=== PATIENT | female | born 1945 | race Caucasian/White ===

== ENCOUNTER 2016-07-19 11:13 | Emergency (ER) | payer OTHER, MEDICARE ==
[~2016-07-19] VITALS: Ht 154.9 cm; Wt 71.2 kg
[~2016-07-19 11:13] MED LIST: ALBUTEROL0.09 MG/A1 INH; ALPRAZOLAM0.25 MG PO; ANTIVERT 25 MG25 M1 PO; ATIVAN0.5 MG PO; BUFFERIN LOW DO81 MG PO; COREG 12.5MG12.5 MG PO; FUROSEMIDE20 M1 PO; HEPARIN 2525000 UNI1 IV; IMBRUVICA140 MG PO; K-TAB ER20 MEQ PO; LIPITOR80 MG PO; LISINOPRIL20 MG PO; LYRICA50 MG PO; METFORMIN1000 MG PO; MORPHINE10 MG/ML IV; Nitro-Bid TOP; OMEPRAZOLE40 M1 PO; OXYCODONE5 MG PO; OXYCONTIN20 MG PO; ROCEPHIN1000 MG IV; TIGAN100 MG/ML IM; ZITHROMAX IV
--- NOTE | 2016-07-19 11:31 | ED GENERAL ADULT ---
History of Present Illness General Chief Complaint: General Adult Stated Complaint: BIBA BODY ACHES, FEVER,NAUSEA Source: patient, family, old records Exam Limitations: no limitations Vital Signs & Intake/Output Vital Signs & Intake/Output Vital Signs Date Time Temp Pulse Resp B/P Pulse O2 O2 Flow FiO2 Ox Delivery Rate 07/19 1633 99.1 78 22 174/85 95 Room Air Room Air 07/19 1420 98.0 85 20 168/88 96 Room Air Room Air 07/19 1300 98.8 07/19 1253 98.6 68 18 148/77 100 Room Air 07/19 1129 93 Room Air Room Air 07/19 1115 98.2 70 18 171/79 95 Room Air Allergies Coded Allergies: methotrexate (PT CAN'T REMEMBER REACTION 07/19/16) erythromycin base (PT STATES SHE GETS SHAKY 07/19/16) Reconcile Medications Alprazolam (Xanax) 0.25 MG TABLET 1 TAB PO BIDP PRN ANXIETY (Reported) Amlodipine Besylate (Norvasc) 5 MG TABLET 1 TAB PO DAILY HEART (Reported) Aspirin (Aspirin*) 81 MG TAB.CHEW 1 TAB PO DAILY HEART (Reported) Atorvastatin Calcium 80 MG TABLET 1 TAB PO DAILY CHOLESTEROL (Reported) Carvedilol (Coreg) 6.25 MG TABLET 1 TAB PO BID HEART (Reported) Celecoxib (Celebrex) 200 MG CAPSULE 1 CAP PO DAILY PAIN (Reported) Dexlansoprazole (Dexilant) 60 MG CAP.DR.BP 1 CAP PO DAILY GI (Reported) Duloxetine HCl (Cymbalta) 60 MG CAPSULE.DR 1 CAP PO DAILY UNKNOWN (Reported) Furosemide 20 MG TABLET 1 TAB PO DAILY EDEMA (Reported) Lisinopril 40 MG TABLET 1 TAB PO DAILY HEART (Reported) Omeprazole 40 MG CAPSULE.DR 1 CAP PO DAILY ACID REFLUX (Reported) Ondansetron HCl (Zofran) 4 MG TABLET 1 TAB PO Q6-8P PRN NAUSEA/VOMITING ( Reported) Oxycodone HCl 5 MG TABLET 1 TAB PO Q8 PAIN (Reported) Oxycodone HCl (Oxycontin) 20 MG TAB.ER.12H 1 TAB PO BID PAIN (Reported) Potassium Chloride (K-Tab ER) 20 MEQ TABLET.ER 1 TAB PO DAILY SUPPLEMENT ( Reported) Pregabalin (Lyrica) 50 MG CAPSULE 1 CAP PO DAILY PAIN (Reported) Spironolactone (Aldactone) 50 MG TABLET 1 TAB PO DAILY UNKNOWN (Reported) Valsartan (Diovan) 160 MG TABLET 1 TAB PO DAILY HEART (Reported) Triage Note: PT BIBA FROM HOME FOR DIARRHEA, NAUSEA WITH VOMITING, BODY ACHES AND FEVER/CHILLS. SYMPTOMS STARTED LAST NIGHT AND CONTINUED INTO THIS MORNING. VISITING NURSE MEDICATED PT WITH [facility]AN CALL PERSON. PT HAS HISTORY OF CLL. NO RECENT SICK CONTACTS, HOWEVER PT'S JUST DC'D FROM HOSPITAL. PT A/O X 4. DENIES CHEST PAIN, COUGH, DIFF BREATHING. Triage Nurses Notes Reviewed? yes HPI: Patient presents with nausea and dry heaving fevers and chills since yesterday. Patient has a history of CLL but is no longer requiring treatment for it. The fevers have been subjective. She states that yesterday she had 4-5 episodes of diarrhea but none today. Patient states she occasionally gets a crampy abdominal pain periumbilically. Crampy abdominal pain lasts a few minutes and then goes away. There are no aggravating or mitigating factors what she has numb. Patient states that when she has the cramps rates them has a 4 out of 10. Currently the pain is 0 out of 10. The visiting nurse came to evaluate her today and sent her in for evaluation. Past History Travel History Traveled to [place] past 21 day No Medical History Any Pertinent Medical History? 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 No Review of Systems Review of Systems Constitutional: Reports: see HPI, chills, fever. EENTM: Reports: no symptoms. Respiratory: Reports: no symptoms. Cardiovascular: Reports: no symptoms. GI: Reports: see HPI, abdominal pain, diarrhea, nausea, vomiting. Genitourinary: Reports: no symptoms. Musculoskeletal: Reports: no symptoms. Skin: Reports: no symptoms. Neurological/Psychological: Reports: no symptoms. Hematologic/Endocrine: Reports: no symptoms. Immunologic/Allergic: Reports: no symptoms. All Other Systems: Reviewed and Negative Physical Exam Physical Exam General Appearance: well developed/nourished, alert, awake, mild distress Head: atraumatic, normal appearance Eyes: Bilateral: PERRL, EOMI. Ears, Nose, Throat: normal pharynx, normal ENT inspection, dry mucus membranes Neck: normal inspection, supple, full range of motion Respiratory: normal breath sounds, chest non-tender, no respiratory distress, lungs clear Cardiovascular: regular rate/rhythm, normal peripheral pulses Gastrointestinal: normal bowel sounds, soft, non-tender, no organomegaly Back: normal inspection Extremities: normal inspection, normal capillary refill, normal range of motion, no edema Neurologic/Psych: no motor/sensory deficits, awake, alert, oriented x 3, normal mood/affect Skin: intact, normal color, warm/dry Lymphatic: no anterior cervical nova Core Measures ACS in differential dx? No CVA/TIA Diagnosis: No Severe Sepsis Present: No Septic Shock Present: No Progress Differential Diagnoses I considered the following diagnoses in my evaluation of the patient: [ Dehydration, electrolyte abnormality, UTI, pneumonia, sepsis, bacteremia] Plan of Care: Orders Procedure Date/time Status Regular Diet 07/20 B Active Add-on Test (ER Only) 07/19 1146 Active LACTIC ACID 07/19 1143 Complete BLOOD CULTURE 07/19 1137 Active Telemetry/Cold Rolling Coordinator 07/19 1136 Active EKG 07/19 1136 Active RAPID VIRAL INFLUENZA A 07/19 1130 Complete URINALYSIS 07/19 1130 Complete COMPREHENSIVE METABOLIC PANEL 07/19 1130 Complete CBC WITHOUT DIFFERENTIAL 07/19 1130 Complete Laboratory Tests 07/19/16 1437: Lactic Acid Cancelled 07/19/16 1330: Urine Color STRAW, Urine Clarity HAZY H, Urine pH 6.5, Ur Specific Garner 1.010, Urine Protein NEG, Urine Ketones NEG, Urine Nitrite NEG, Urine Bilirubin NEG, Urine Urobilinogen 0.2, Ur Leukocyte Esterase SMALL H, Ur Microscopic SEDIMENT EXAMINED, Urine RBC 1-3, Urine WBC 3-5 H, Ur Epithelial Cells MOD H, Urine Bacteria MOD H, Urine Hemoglobin SMALL H, Urine Glucose NEG 04/06/17 1143: Anion Gap 10, Estimated GFR 49 L, BUN/Creatinine Ratio 13.6, Glucose 151 H, Lactic Acid 1.5, Calcium 9.9, Total Bilirubin 1.0, AST 17, ALT 26, Alkaline Phosphatase 47, Total Protein 6.7, Albumin 4.2, Globulin 2.5, Albumin/Globulin Ratio 1.7, CBC w Diff MAN DIFF ORDERED, RBC 5.06, MCV 83.9, MCH 28.9, RDW 15.7 H, MPV 7.8, Gran % 72.0, Lymphocytes % 22.0, Monocytes % 4.7, Eosinophils % 0.9, Basophils % 0.4, Absolute Granulocytes 12.3 H, Absolute Lymphocytes 3.8 H, Absolute Monocytes 0.8 H, Absolute Eosinophils 0.1, Absolute Basophils 0.1, Platelet Estimate VERIFIED BY SMEAR, Poikilocytosis 1+, Anisocytosis 1+, PUBS MCHC 34.4 07/19/16 1137: Lactic Acid Cancelled Microbiology 07/19 1410 NASOPHARYN: Influenza Virus A & B Rapid Smear - COMP 07/19 1145 BLOOD: Blood Culture - RECD 07/19 1143 BLOOD: Blood Culture - RECD Diagnostic Imaging: Viewed by Me: Radiology Read. Discussed w/RAD: Radiology Read. Radiology Impression: PATIENT: CHELITA ANDERSON PRESENT AGE: 71 PATIENT ACCOUNT NO: [id number] : 46 LOCATION: [facility] ORDERING PHYSICIAN: IZZY BURRELL MD SERVICE DATE: 07/19/168241 EXAM TYPE: RAD - XRY-PORTABLE CHEST XRAY EXAMINATION: XR PORTABLE CHEST CLINICAL INFORMATION: Cough, fever COMPARISON: 07/06/2015 TECHNIQUE: Portable AP view of the chest was obtained. FINDINGS: No convincing evidence for an acute process in this portable study. Low lung volumes. No evidence for an acute infiltrate. No effusion. IMPRESSION: Low lung volumes. No convincing evidence for an acute process. Recommend PA and lateral films when the patient is able DICTATED BY: STEPHANIE FARIAS MD DATE/TIME DICTATED:07/19/161417 [employer] SALES REPRESENTATIVE:KYLE DATE/TIME TRANSCRIBED:07/19/161417 CONFIDENTIAL, DO NOT COPY WITHOUT APPROPRIATE AUTHORIZATION. <Electronically signed in Other Vendor System> SIGNED BY: STEPHANIE FARIAS MD 07/19/16 1423, PATIENT: CHELITA ANDERSON PRESENT AGE: 71 PATIENT ACCOUNT NO: [id number] : 46 LOCATION: [facility] ORDERING PHYSICIAN: IZZY BURRELL MD SERVICE DATE: -7115 EXAM TYPE: CAT - CT ABD & PELVIS W/O IV CONTRAS EXAMINATION: CT ABDOMEN AND PELVIS WITHOUT CONTRAST CLINICAL INFORMATION: Fever, CLL, vomiting COMPARISON: CT abdomen and pelvis dated 07/05/2015 TECHNIQUE: Multidetector volumetric imaging was performed from the superior aspect of the liver through the pubic symphysis. Sagittal and coronal reformatted images were obtained on the technologist's workstation. DLP: 530.22 mGy-cm FINDINGS: LUNG BASES: Previously seen mosaic attenuation bilateral lung bases demonstrate slight interval improvement. Interval improvement in previously seen trace pleural effusions. LIVER, GALLBLADDER, AND BILIARY TREE: The liver is normal in size, shape, and attenuation. No focal hepatic lesion or biliary ductal dilatation is present. Status post cholecystectomy. No gross biliary ductal dilatation. PANCREAS: Evaluation is limited on the noncontrast images no gross abnormality. SPLEEN: Unremarkable. ADRENAL GLANDS: Prominence of bilateral adrenal glands noted again. It is more focal prominence of the medial limb left adrenal gland measuring approximately 2.6 x 2 cm (series 2 image 27 and coronal image 45/85). Hounsfield units are higher than seen with lipid rich adenoma. Although enlarged adrenal gland was seen on the prior examination, there is slightly lower attenuation on the prior study. KIDNEYS AND URETERS: No evidence of renal stones or obstructive uropathy. No gross cortical abnormality BLADDER: Unremarkable. GASTROINTESTINAL TRACT: No acute bowel pathology. No evidence of obstruction. There is incomplete distention versus wall thickness of the proximal stomach. Mild colonic diverticulosis. No definite evidence of acute diverticulitis. Evaluation of the bowel and rectal wall is limited due to incomplete distention. ABDOMINAL WALL: Surgical clips noted at the level of the umbilicus. There is diffuse edema-like change noted throughout the subcutaneous tissues suspicious for mild anasarca. LYMPH NODES: Borderline enlarged retroperitoneal lymph nodes noted again. Larger aortocaval node measures approximately 1 cm in short axis. Similar appearance seen on the previous examination. VASCULAR: Atherosclerotic disease of the aorta and aortic branches. PELVIC VISCERA: Intrauterine device in place. Retroflexed uterus. Calcified fibroids suspected. No gross ovarian or adnexal abnormality appreciated. OSSEOUS STRUCTURES: Moderate to severe degenerative changes noted in the lumbar spine similar to the previous examination. No acute osseous abnormality. Degenerative changes bilateral hips, right greater than left. IMPRESSION: 1. Adrenal enlargement, left greater than right. Hounsfield units are higher than seen with lipid rich adrenal adenoma. Although similarly enlarged adrenal glands were seen on the prior examination, there has been interval increase in the attenuation of the focal left adrenal enlargement. Although there is no evidence of acute hemorrhage, interval adrenal hemorrhage cannot be entirely excluded. Findings can be further assessed with nonemergent adrenal MRI. 2. Stable borderline enlarged retroperitoneal lymph nodes. 3. Improving aeration bilateral lung bases. 4. Incomplete distention versus wall thickness of the proximal stomach. DICTATED BY: RIOS FELICIANO MD DATE/TIME DICTATED:07/19/161605 [employer] SALES REPRESENTATIVE:KYLE DATE/TIME TRANSCRIBED:07/19/161605 CONFIDENTIAL, DO NOT COPY WITHOUT APPROPRIATE AUTHORIZATION. <Electronically signed in Other Vendor System> SIGNED BY: RIOS FELICIANO MD 07/19/16 4939 Initial ED EKG: NSR, no ST T wave changes Prior EKG: unchanged Comments: Patient tolerated fluid here in the emergency department without vomiting. Departure Departure Disposition: HOME OR SELF CARE Condition: Stable Clinical Impression Primary Impression: Hypokalemia Secondary Impressions: Leukocytosis Referrals: DALE LOJA MD Additional Instructions: Return if symptoms worsen or for any concerns. Departure Forms: Customer Survey General Discharge Information Critical Care Note Critical Care Note Critical Care Time: non-applicable
[2016-07-19 11:53] LABS: ABSOLUTE BASOPHIL COUNT 0.1 /CUMM (0.0-0.2); ABSOLUTE EOSINOPHIL COUNT 0.1 /CUMM (0.0-0.7); ABSOLUTE GRANULOCYTE CT 12.3 /CUMM (1.4-6.5); ABSOLUTE LYMPH COUNT 3.8 /CUMM (1.2-3.4); ABSOLUTE MONOCYTE COUNT 0.8 /CUMM (0.10-0.60); BASOPHIL % 0.4 % (0.0-2.0); EOSINOPHIL % 0.9 % (0-5); HEMATOCRIT 42.5 % (37-47); MEAN CORPUSCULAR HGB 28.9 PG (27.0-31.0); MEAN CORPUSCULAR HGB CONC 34.4 G/DL (33.0-37.0); MEAN CORPUSCULAR VOLUME 83.9 FL (81.0-99.0); MEAN PLATELET VOLUME 7.8 FL (7.4-10.4); PLATELET COUNT 378 /CUMM (130-400); RBC DISTRIBUTION WIDTH 15.7 % (11.5-14.5); RED BLOOD CELL CT 5.06 /CUMM (4.20-5.40); WHITE BLOOD CELL COUNT 17.1 /CUMM (4.8-10.8)
[2016-07-19] MEDS ORDERED: ZOFRAN4 M2 PO (12:48)
[2016-07-19] MEDS ORDERED: OXYCODONE HCL5 M1 PO (12:49)
[2016-07-19] MEDS ORDERED: CELEBREX200 M1 PO (12:49)
[2016-07-19] MEDS ORDERED: OXYCONTIN20 M1 PO (12:49)
[2016-07-19] MEDS ORDERED: ATORVASTATIN CA80 M1 PO (12:50)
[2016-07-19] MEDS ORDERED: COREG6.25 M1 PO (12:50)
[2016-07-19] MEDS ORDERED: ALDACTONE50 M1 PO (12:50)
[2016-07-19] MEDS ORDERED: DIOVAN160 MG PO (12:51)
[2016-07-19] MEDS ORDERED: NORVASC5 M1 PO (12:51)
[2016-07-19] MEDS ORDERED: XANAX0.25 M1 PO (12:52)
[2016-07-19] MEDS ORDERED: LISINOPRIL40 M1 PO (12:52)
[2016-07-19] MEDS ORDERED: LYRICA50 M1 PO (12:52)
[2016-07-19] MEDS ORDERED: DEXILANT60 M1 PO (12:53)
[2016-07-19] MEDS ORDERED: CYMBALTA60 M1 PO (12:53)
[2016-07-19] MEDS ORDERED: ASPIRIN81 M4 PO (12:53)
--- NOTE | 2016-07-19 14:23 | RADIOLOGY REPORT ---
EXAMINATION: XR PORTABLE CHEST CLINICAL INFORMATION: Cough, fever COMPARISON: 07/06/2015 TECHNIQUE: Portable AP view of the chest was obtained. FINDINGS: No convincing evidence for an acute process in this portable study. Low lung volumes. No evidence for an acute infiltrate. No effusion. IMPRESSION: Low lung volumes. No convincing evidence for an acute process. Recommend PA and lateral films when the patient is able
--- NOTE | 2016-07-19 16:29 | CT SCAN REPORT ---
EXAMINATION: CT ABDOMEN AND PELVIS WITHOUT CONTRAST CLINICAL INFORMATION: Fever, CLL, vomiting COMPARISON: CT abdomen and pelvis dated 07/05/2015 TECHNIQUE: Multidetector volumetric imaging was performed from the superior aspect of the liver through the pubic symphysis. Sagittal and coronal reformatted images were obtained on the technologist's workstation. DLP: 530.22 mGy-cm FINDINGS: LUNG BASES: Previously seen mosaic attenuation bilateral lung bases demonstrate slight interval improvement. Interval improvement in previously seen trace pleural effusions. LIVER, GALLBLADDER, AND BILIARY TREE: The liver is normal in size, shape, and attenuation. No focal hepatic lesion or biliary ductal dilatation is present. Status post cholecystectomy. No gross biliary ductal dilatation. PANCREAS: Evaluation is limited on the noncontrast images no gross abnormality. SPLEEN: Unremarkable. ADRENAL GLANDS: Prominence of bilateral adrenal glands noted again. It is more focal prominence of the medial limb left adrenal gland measuring approximately 2.6 x 2 cm (series 2 image 27 and coronal image 45/85). Hounsfield units are higher than seen with lipid rich adenoma. Although enlarged adrenal gland was seen on the prior examination, there is slightly lower attenuation on the prior study. KIDNEYS AND URETERS: No evidence of renal stones or obstructive uropathy. No gross cortical abnormality BLADDER: Unremarkable. GASTROINTESTINAL TRACT: No acute bowel pathology. No evidence of obstruction. There is incomplete distention versus wall thickness of the proximal stomach. Mild colonic diverticulosis. No definite evidence of acute diverticulitis. Evaluation of the bowel and rectal wall is limited due to incomplete distention. ABDOMINAL WALL: Surgical clips noted at the level of the umbilicus. There is diffuse edema-like change noted throughout the subcutaneous tissues suspicious for mild anasarca. LYMPH NODES: Borderline enlarged retroperitoneal lymph nodes noted again. Larger aortocaval node measures approximately 1 cm in short axis. Similar appearance seen on the previous examination. VASCULAR: Atherosclerotic disease of the aorta and aortic branches. PELVIC VISCERA: Intrauterine device in place. Retroflexed uterus. Calcified fibroids suspected. No gross ovarian or adnexal abnormality appreciated. OSSEOUS STRUCTURES: Moderate to severe degenerative changes noted in the lumbar spine similar to the previous examination. No acute osseous abnormality. Degenerative changes bilateral hips, right greater than left. IMPRESSION: 1. Adrenal enlargement, left greater than right. Hounsfield units are higher than seen with lipid rich adrenal adenoma. Although similarly enlarged adrenal glands were seen on the prior examination, there has been interval increase in the attenuation of the focal left adrenal enlargement. Although there is no evidence of acute hemorrhage, interval adrenal hemorrhage cannot be entirely excluded. Findings can be further assessed with nonemergent adrenal MRI. 2. Stable borderline enlarged retroperitoneal lymph nodes. 3. Improving aeration bilateral lung bases. 4. Incomplete distention versus wall thickness of the proximal stomach.
[2016-07-19 18:14] VITALS: BP 180/85
== END 2016-07-19 18:46 ==
LOC: ERH 11:13
PROVIDERS: Emergency Medicine
DX: E87.6 Hypokalemia (principal); D72.829 Elevated white blood cell count, unspecified
CPT/HCPCS: 74176; 81001; 87040; 87804; 87804-59; 93005; 93010; 96365; 96366; 96375; J2405

== ENCOUNTER 2016-08-23 14:06 | Inpatient (IN) | payer OTHER, MEDICARE ==
[~2016-08-23] VITALS: Ht 152.4 cm; Wt 70.3 kg
[~2016-08-23 14:06] MED LIST changes: +ALDACTONE50 M1 PO; +ASPIRIN81 M4 PO; +ATORVASTATIN CA80 M1 PO; +CELEBREX200 M1 PO; +COREG6.25 M1 PO; +CYMBALTA60 M1 PO; +DEXILANT60 M1 PO; +DIOVAN160 MG PO; +LISINOPRIL40 M1 PO; +LYRICA50 M1 PO; +NORVASC5 M1 PO; +OXYCODONE HCL5 M1 PO; +OXYCONTIN20 M1 PO; +XANAX0.25 M1 PO; +ZOFRAN4 M2 PO
--- NOTE | 2016-08-23 14:12 | NUR ---
[place] FROM HOME, VISITING NURSE NOTED PT TO HAVE ALTERED MENTAL STATUS. UPON ARRIVAL PT ALERT AND ORIENTED X3. PREHOSPITAL IV PLACED AND BS 128. PT SKIN COLOR APPEARS NORMAL. NO COMPLAINTS.
--- NOTE | 2016-08-23 14:26 | NUR ---
PT A+OX3. REPORTS MARIJUANA USE FOR RIGHT HIP PAIN. PLACED ON MONITOR.
--- NOTE | 2016-08-23 14:39 | ED GENERAL ADULT ---
History of Present Illness General Chief Complaint: General Adult Stated Complaint: ALTERED MENTAL STATUS Source: patient, family, old records Exam Limitations: no limitations Allergies Coded Allergies: methotrexate (PT CAN'T REMEMBER REACTION 07/19/16) erythromycin base (PT STATES SHE GETS SHAKY 07/19/16) Triage Note: BIBA FROM HOME, VISITING NURSE NOTED PT TO HAVE ALTERED MENTAL STATUS. UPON ARRIVAL PT ALERT AND ORIENTED X3. PREHOSPITAL IV PLACED AND BS 128. PT SKIN COLOR APPEARS NORMAL. NO COMPLAINTS. Triage Nurses Notes Reviewed? yes HPI: Ms Stokes is a 71-year-old female with past medical history of hypertension, hyperlipidemia, type 2 diabetes and CLL who was sent into the emergency department by ambulance after her visiting nurse visited the patient early this morning noted her to be mentally altered. Patient reports that she has not had any changes to mentation and states that she is in her normal state of health, however feels that the last 48 hours she has felt right-sided hip pain. The pain is rated at a 7 out of 10 in severity. Patient owes this hip pain due to working aggressively with physical therapy. She denies any fever, chills, nausea, vomiting. The patient denies any changes in mentation or any vision changes. Her was at bedside. They deny any head trauma or falls. (SHIRLEY WEBSTER,[facility]) Vital Signs & Intake/Output Vital Signs & Intake/Output Vital Signs Date Time Temp Pulse Resp B/P B/P Pulse O2 O2 Flow FiO2 Mean Ox Delivery Rate 08/24 1007 Room Air Room Air 08/24 0955 58 110/62 08/24 0955 58 110/62 08/24 0835 98.2 58 18 110/62 96 08/24 0800 Nasal 2.0L Cannula 08/24 0104 68 116/72 08/24 0059 99.0 68 20 116/72 95 Nasal Cannula 08/23 2328 98.5 66 18 114/56 95 Nasal 2.0L Cannula 08/23 2323 Nasal 2.0L Cannula 08/23 1955 Nasal 2.0L Cannula 08/23 1902 98.6 96 16 114/67 96 Nasal 2.0L Cannula 08/23 1541 98.5 66 18 112/62 94 Room Air 08/23 1418 95 Room Air 08/23 1417 98.3 61 20 109/60 96 Nasal 3.0L Cannula ED Intake and Output 08/24 0000 08/23 1200 Intake Total Output Total Balance Patient 70.307 kg Weight Weight Reported by Patient Measurement Method Reconcile Medications Alprazolam (Xanax) 0.25 MG TABLET 1 TAB PO BIDP PRN ANXIETY (Reported) Amlodipine Besylate (Norvasc) 5 MG TABLET 1 TAB PO DAILY HEART (Reported) Aspirin (Aspirin*) 81 MG TAB.CHEW 1 TAB PO DAILY HEART (Reported) Atorvastatin Calcium 80 MG TABLET 1 TAB PO DAILY CHOLESTEROL (Reported) Carvedilol (Coreg) 6.25 MG TABLET 1 TAB PO BID HEART (Reported) Celecoxib (Celebrex) 200 MG CAPSULE 1 CAP PO DAILY PAIN (Reported) Dexlansoprazole (Dexilant) 60 MG CAP.DR.BP 1 CAP PO DAILY GI (Reported) Duloxetine HCl (Cymbalta) 60 MG CAPSULE.DR 1 CAP PO DAILY UNKNOWN (Reported) Furosemide 20 MG TABLET 1 TAB PO DAILY EDEMA (Reported) Lisinopril 40 MG TABLET 1 TAB PO DAILY HEART (Reported) Metformin HCl 500 MG TABLET 1 TAB PO BID DIABETES (Reported) Mifepristone (Korlym) 300 MG TABLET 1 TAB PO DAILY ENDO (Reported) Omeprazole 40 MG CAPSULE.DR 1 CAP PO DAILY ACID REFLUX (Reported) Ondansetron HCl (Zofran) 4 MG TABLET 1 TAB PO Q6-8P PRN NAUSEA/VOMITING ( Reported) Oxycodone HCl 5 MG TABLET 1 TAB PO Q8 PAIN (Reported) Oxycodone HCl (Oxycontin) 20 MG TAB.ER.12H 1 TAB PO BID PAIN (Reported) Potassium Chloride (K-Tab ER) 20 MEQ TABLET.ER 1 TAB PO DAILY SUPPLEMENT ( Reported) Pregabalin (Lyrica) 50 MG CAPSULE 1 CAP PO DAILY PAIN (Reported) Spironolactone (Aldactone) 50 MG TABLET 1 TAB PO DAILY UNKNOWN (Reported) Valsartan (Diovan) 160 MG TABLET 1 TAB PO DAILY HEART (Reported) (RIC ALATORRE MD) Past History Travel History Traveled to [place] past 21 day No Medical History Neurological: STROKE EENT: NONE Cardiovascular: hypertension, hyperlipidemia, myocardial infarction, ?LV HYPERTROPHY Respiratory: NONE Gastrointestinal: NONE Hepatic: NONE Renal: NONE Musculoskeletal: osteoarthritis Psychiatric: NONE Endocrine: diabetes, THYROID NODULE Blood Disorders: NONE Cancer(s): CLL CEMENT BREAKER/Reproductive: NONE Other Medical Hx: HX OF ANEMIA, History of MRSA: No History of VRE: No History of CDIFF: No Surgical History Surgical History: non-contributory Psychosocial History Who do you live with Spouse What is your primary language Azeri Tobacco Use: Current Daily Use Daily Tobacco Use Amount/Type: => 5 Cigarettes daily ETOH Use: denies use Illicit Drug Use: marijuana (CHRIS WATSON MD) Medical History Any Pertinent Medical History? see below for history Family History Hx Contributory? No (RIC ALATORRE MD) Review of Systems Review of Systems Constitutional: Denies: chills, diaphoresis, fever, malaise, weakness. Respiratory: Denies: cough, hemoptysis, orthopnea, short of breath. Cardiovascular: Denies: chest pain, edema, orthopena, palpitations. GI: Denies: abdominal pain, bloating, constipation, diarrhea, distention, bowel incontinence, melena. Genitourinary: Denies: discharge, dysuria, frequency, hematuria, hesitation, nocturia. Musculoskeletal: Reports: joint pain. Denies: back pain, gout, joint swelling, muscle pain. Skin: Denies: cysts, change in skin color, change in hair/nails, dryness. Neurological/Psychological: Denies: anxiety, ataxia, cognitive dysfunction, confusion, depressed, dementia, emotional problems. Hematologic/Endocrine: Denies: bruising, bleeding, polyuria, polydipsia. (CHRIS WATSON MD) Review of Systems EENTM: Reports: no symptoms. Immunologic/Allergic: Reports: no symptoms. All Other Systems: Reviewed and Negative (RIC ALATORRE MD) Physical Exam Physical Exam General Appearance: well developed/nourished, no apparent distress, alert, awake Eyes: Bilateral: PERRL, EOMI. 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 Skin: intact, normal color Lymphatic: no anterior cervical nova Core Measures ACS in differential dx? Yes ASA ordered for poss ACS? No-ACS ruled out CVA/TIA Diagnosis: No Severe Sepsis Present: No Septic Shock Present: No (LANDRY WEBSTER,RIC) Progress Differential Diagnoses I considered the following diagnoses in my evaluation of the patient: Altered mentation, pneumonia, hyperkalemia, pneumonia, UTI. Initial ED EKG: normal axis, normal intervals, normal p-waves (SHIRLEY WEBSTER,[facility]) Plan of Care: Orders Procedure Date/time Status Regular Diet 08/24 B Active EKG 08/24 1100 Active THERAPIST ORDERS 08/24 1007 Complete Change service to 08/24 1006 Active RT: Evaluation 08/24 0816 Active GLYCOSYLATED HGB 08/24 0635 Active THYROID STIMULATING HORMONE 08/24 0630 Complete TROPONIN LEVEL 08/24 0630 Complete LIPID PANEL 08/24 0630 Complete FREE T4 08/24 0630 Complete EKG 08/24 0553 Active MAGNESIUM 08/24 0400 Complete CBC WITHOUT DIFFERENTIAL 08/24 0400 Complete BASIC ELECTROLYTES PLUS BUN&CR 08/24 0400 Complete Turn and Reposition 08/24 0128 Active Skin Integrity Protocol 08/24 0128 Active Therapeutic Activities 08/24 UNK Complete PT EVAL LOW COMPLEX 20 MIN 08/24 UNK Complete Gait Training 08/24 UNK Complete Lab Add-on Test 08/24 UNK Active ECHOCARDIOGRAM 08/24 UNK Active Regular Diet 08/23 D Complete EKG 08/23 2334 Active CULTURE,URINE 08/23 2329 Active CULTURE,STOOL 08/23 2329 Active LOWER RESPIRATORY CULTURE 08/23 2329 Active BLOOD CULTURE 08/23 2329 Active Vital Signs 08/23 2322 Active Teach/Educate 08/23 232 Active Pain Treatment and Response 08/23 232 Active Nutritional Intake, Monitor 08/23 232 Active Isolation 08/23 232 Active Intake & Output 08/23 2321 Active Patient Care Conference 08/23 232 Active Activity/Ambulation 08/23 232 Active FingerStick- Glucose 08/23 231 Active TROPONIN LEVEL 08/23 231 Complete TRC EVALUATION (GEN) 08/23 231 Complete PT Evaluate & Treat 08/23 2309 Active Saline Lock 08/23 2309 Active Pathway - chart 08/23 2309 Active House Staff 08/23 2309 Active Patient Data 08/23 231 Active Code Status 08/23 231 Active URINE DRUGS OF ABUSE 08/23 225 Complete Patient Data 08/23 2148 Active Add-on Test (ER Only) 08/24 2147 Active OXYGEN SETUP (GEN) 08/24 2123 Active Saline Lock 08/24 2123 Active Admit to inpatient 08/24 2123 Active Vital Signs 08/24 2123 Active Activity/Ambulation 08/24 2123 Active Code Status 08/24 2123 Complete POTASSIUM-PLASMA 08/24 1999 Complete EKG 08/23 180 Active URINALYSIS 08/23 1719 Complete TROPONIN LEVEL 08/23 1614 Complete MAGNESIUM 08/23 161 Complete FingerStick- Glucose 08/23 1540 Active COMPREHENSIVE METABOLIC PANEL 08/23 1533 Complete CBC WITHOUT DIFFERENTIAL 08/23 1533 Complete Intake & Output 08/23 1415 Active EKG 08/23 0500 Active VTE Mechanical Prophylaxis 08/23 UNK Active Vital Signs 08/23 UNK Complete MISTAKE 08/23 UNK Active Telemetry/Quality Improvement Coordinator 08/23 UNK Active Intake & Output 08/23 UNK Complete Current Medications Sig/Sugar Start time Last Medication Dose Stop Time Status Admin Atorvastatin Calcium 80 MG 1700 08/24 1700 AC (Lipitor) Magnesium Sulfate 1 GM ONCE ONE 08/24 1145 CAN (Mag Sulfate in D5) 08/24 1544 Dextrose/Water 100 ML (D5W) Aspirin 81 MG DAILY 08/24 1000 AC 08/24 (Aspirin) 0955 Lisinopril 40 MG DAILY 08/24 1000 AC 08/24 (Prinivil) 0955 Spironolactone 50 MG DAILY 08/24 1000 AC 08/24 (Aldactone) 0954 Insulin Aspart 0 TIDAC 08/24 0800 AC (NovoLOG) Oxycodone HCl 5 MG Q8P PRN 08/24 0630 AC (Roxicodone) Heparin Sodium 5,000 UNIT Q8 08/24 0600 AC 08/24 (Porcine) 0623 Ceftriaxone Sodium 1,000 MG DAILY 08/24 0300 AC 08/24 (Rocephin) 0955 Carvedilol 6.25 MG BID 08/24 0015 AC 08/24 (Coreg) 0955 Oxycodone HCl 20 MG BID 08/23 2317 AC 08/24 (OxyCONTIN) 0953 Potassium Chloride 40 MEQ Q13H 08/23 2200 AC 08/23 (KCl 40MEQ in D5W NS 08/24 2359 2320 1000ML) Dextrose/Sodium 1,000 ML Chloride (D5-Normal Saline) Potassium Chloride 20 MEQ ONCE ONE 08/23 1730 CAN 08/23 1731 Laboratory Tests 08/24/16 1100: Hemoglobin A1c Pending 08/24/16 0630: Troponin I Cancelled 08/24/16 0630: Anion Gap 7, Estimated GFR 44 L, BUN/Creatinine Ratio 12.5, Magnesium 1.7, Troponin I 0.16 *H, Triglycerides 106, Cholesterol 78, LDL Cholesterol, Calc 22 L, HDL Cholesterol 36 L, Cholesterol/HDL Ratio 2.2, TSH 2.630, Free T4 0.96, CBC w Diff NO MAN DIFF REQ, RBC 4.00 L, MCV 83.2, MCH 28.6, RDW 15.2 H, MPV 8.4, Gran % 49.6, Lymphocytes % 42.4, Monocytes % 5.8, Eosinophils % 1.7, Basophils % 0.5, Absolute Granulocytes 7.2 H, Absolute Lymphocytes 6.2 H, Absolute Monocytes 0.8 H, Absolute Eosinophils 0.2, Absolute Basophils 0.1, PUBS MCHC 34.4 08/24/16 0000: Urine Opiates Screen 1340.00, Methadone Screen 70, Barbiturate Screen < 60, Ur Phencyclidine Scrn < 6.00, Amphetamines Screen < 100, U Benzodiazepines Scrn > 800 H, Urine Cocaine Screen < 50, Urine Cannabis Screen > 80.00 H, Urine Color YEL, Urine Clarity HAZY H, Urine pH 6.0, Ur Specific [place] 1.020, Urine Protein 30 H, Urine Ketones NEG, Urine Nitrite NEG, Urine Bilirubin NEG, Urine Urobilinogen 0.2, Ur Leukocyte Esterase SMALL H, Ur Microscopic SEDIMENT EXAMINED, Urine RBC RARE, Urine WBC 5-10 H, Ur Epithelial Cells MOD H, Urine Bacteria MANY H, Urine Hemoglobin TRACE-INTACT, Urine Glucose NEG 08/23/16 2330: Troponin I 0.17 *H 08/23/166: Plasma Potassium 2.2 *L 08/23/16 1614: Anion Gap 11, Estimated GFR 40 L, BUN/Creatinine Ratio 10.0, Glucose 93, Calcium 9.3, Magnesium 1.1 L, Total Bilirubin 0.8, AST 22, ALT 35, Alkaline Phosphatase 55, Troponin I 0.11 *H, Total Protein 6.1 L, Albumin 4.0, Globulin 2.1, Albumin/Globulin Ratio 1.9, CBC w Diff MAN DIFF ORDERED, RBC 4.79, MCV 83.7 , MCH 28.0, RDW 15.4 H, MPV 7.7, Gran % 62.0, Lymphocytes % 29.1, Monocytes % 7.0, Eosinophils % 1.4, Basophils % 0.5, Absolute Granulocytes 12.6 H, Segmented Neutrophils 55, Absolute Lymphocytes 5.9 H, Lymphocytes 36, Monocytes 5, Absolute Monocytes 1.4 H, Eosinophils 3, Absolute Eosinophils 0.3, Basophils 1, Absolute Basophils 0.1, Platelet Estimate ADEQUATE, Poikilocytosis 1+, Stomatocytes RARE, [place] Cells 1+, PUBS MCHC 33.5 Microbiology 08/24 0000 URINE ROUT: Urine Culture - RECD 08/23 2328 LOWER RESP: Respiratory Culture - COLB 08/23 2328 LOWER RESP: Gram Stain - COLB 08/23 2328 STOOL: Stool Culture - COLB Differential Diagnoses I considered the following diagnoses in my evaluation of the patient: (RIC ALATORRE MD) Departure Departure Disposition: STILL A PATIENT Condition: Stable Clinical Impression Primary Impression: Altered mental status Secondary Impressions: Hypokalemia Referrals: LINDA MATTHEWS MD (PCP/Family) Departure Forms: Customer Survey General Discharge Information (SHIRLEY WEBSTER,CHRIS) Resident Co-Sign Statement Statement: ED Attending supervision documentation- [X] I saw and evaluated the patient. I have also reviewed all the pertinent lab results and diagnostic results. I agree with the findings and the plan of care as documented in the Resident's documentation. [] I have reviewed the ED Record and agree with the Resident's documentation. [] Additions or exceptions (if any) to the Resident's note and plan are summarized below: [] (GIN WEBSTER,STEPHANIE Gonzales) Admission Note Spoke With: NITIN CARDOZO MD Documentation of Exam: Documentation of any treatments & extenuating circumstances including Concerns Regarding Discharge (functional status, medication knowledge or non-compliance, living conditions, etc.) that warrant an admission rather than observation: Serial lab exam IV potassium medication adjustment ensure safety physical therapy continuing care discharge planning (RIC ALATORRE MD) Critical Care Note Critical Care Note Critical Care Time: non-applicable (RIC ALATORRE MD)
--- NOTE | 2016-08-23 15:07 | NUR ---
ASSUMED CARE OF PT
--- NOTE | 2016-08-23 15:40 | NUR ---
PT AWAKE, ALERT AND ORIENTED. DENIES SOB. STATES CHRONIC HIP PAIN. WEANED TO ROOM AIR. SATS 94% ON ROOM AIR. SON AT BEDSIDE AND STATES SHE IS AT HER BASELINE
--- NOTE | 2016-08-23 16:15 | NUR ---
LABS DRAWN. DR GREENFIELD IN TO SEE PT. DR GREENFIELD STATES PT CAN EAT
--- NOTE | 2016-08-23 16:17 | NUR ---
MEAL TRAY ORDERED FOR PT
[2016-08-23 16:33] LABS: ABSOLUTE BASOPHIL COUNT 0.1 /CUMM (0.0-0.2); ABSOLUTE EOSINOPHIL COUNT 0.3 /CUMM (0.0-0.7); ABSOLUTE GRANULOCYTE CT 12.6 /CUMM (1.4-6.5); ABSOLUTE LYMPH COUNT 5.9 /CUMM (1.2-3.4); ABSOLUTE MONOCYTE COUNT 1.4 /CUMM (0.10-0.60); BASOPHIL % 0.5 % (0.0-2.0); EOSINOPHIL % 1.4 % (0-5); HEMATOCRIT 40.1 % (37-47); MEAN CORPUSCULAR HGB CONC 33.5 G/DL (33.0-37.0); MEAN CORPUSCULAR VOLUME 83.7 FL (81.0-99.0); MEAN PLATELET VOLUME 7.7 FL (7.4-10.4); PLATELET COUNT 355 /CUMM (130-400); RBC DISTRIBUTION WIDTH 15.4 % (11.5-14.5); RED BLOOD CELL CT 4.79 /CUMM (4.20-5.40); WHITE BLOOD CELL COUNT 20.4 /CUMM (4.8-10.8)
--- NOTE | 2016-08-23 16:53 | NUR ---
CRITICAL TEST RESULTS [id number] CHELITA ANDERSON 71 F TESTS AND RESULTS: POTASSIUM 2.5 Results received and read back by: BERTA MONTES DE OCA Results received date and time: 08/23/16 1653 The following provider was notified of the results, and read the results back: DR Liz WATSON Notified date and time: 08/23/16 at 1655
--- NOTE | 2016-08-23 17:01 | NUR ---
PT SET UP TO EAT
--- NOTE | 2016-08-23 17:38 | RADIOLOGY REPORT ---
EXAMINATION: XR PORTABLE CHEST CLINICAL INFORMATION: Leukocytosis. COMPARISON: Portable chest x-ray 07/19/2016. TECHNIQUE: Portable frontal view of the chest was obtained. FINDINGS: The lungs are well-expanded and clear without focal airspace consolidation. No pleural effusions or pneumothoraces are identified. Cardiomediastinal contours are within normal limits. Soft tissues are unremarkable. No acute osseous abnormality is identified. IMPRESSION: No acute pulmonary process.
--- NOTE | 2016-08-23 18:55 | NUR ---
EKG DONE. PT EATING DINNER
--- NOTE | 2016-08-23 19:30 | NUR ---
AMBULATED TO BATHROOM WITH WALKER AND MIN ASSIST. PUT HAT IN TOILET TO CATCH URINE. PT MISSED HAT. COULD NOT OBTAIN URINE SPECIMEN
--- NOTE | 2016-08-23 19:39 | RADIOLOGY REPORT ---
EXAMINATION: XR HIP, RIGHT CLINICAL INFORMATION: Right hip pain. Evaluate for fracture. COMPARISON: CT abdomen and pelvis 07/19/2016. TECHNIQUE: PA and frog-leg lateral views of the right hip. FINDINGS: Degenerative changes of the right hip joint characterized by significant symmetric joint space narrowing with periarticular osteophytes identified. There is no visible fracture or dislocation of the right hip. Soft tissues appear unremarkable. IMPRESSION: No appreciable fracture or dislocation of the right hip. Severe degenerative changes of the right hip joints with symmetric joint space narrowing and periarticular osteophytes.
--- NOTE | 2016-08-23 19:55 | NUR ---
PT MEDICATED WITH SECOND DOSE OF PO POTASSIUM. ATTEMPTED X2 TO PLACE IN HOSP IV. PT ONLY HAS PRE HOSP IV. UNABLE TO PLACE IV
--- NOTE | 2016-08-23 21:19 | NUR ---
CRITICAL TEST RESULTS [id number] CHELITA ANDERSON 71 F TESTS AND RESULTS: POTASSIUM 2.2 Results received and read back by: TASIA MANCILLA Results received date and time: 08/23/162118 The following provider was notified of the results, and read the results back: Notified date and time: 08/23/16 at
--- NOTE | 2016-08-23 21:31 | NUR ---
DR RABAGO PAGED TO REPORT PANIC POTASSIUM LEVEL
--- NOTE | 2016-08-23 21:31 | NUR ---
CRITICAL TEST RESULTS [id number] CHELITA ANDERSON 71 F TESTS AND RESULTS: POTASSIUM 2.2 Results received and read back by: BERTA MONTES DE OCA Results received date and time: 08/23/162131 The following provider was notified of the results, and read the results back: DR ALATORRE Notified date and time: 08/23/16 at 2
--- NOTE | 2016-08-23 21:42 | NUR ---
CRITICAL TEST RESULTS [id number] CHELITA ANDERSON 71 F TESTS AND RESULTS: POTASSIUM 2.2 Results received and read back by: BERTA MONTES DE OCA Results received date and time: 08/23/162141 The following provider was notified of the results, and read the results back: DR RABAGO Notified date and time: 08/23/16 at 2141 \
--- NOTE | 2016-08-23 22:12 | NUR ---
PT TO ROOM 179 BED 1
--- NOTE | 2016-08-23 22:13 | NUR ---
PT MEDICATED WITH 40 OF POTASSIUM MIXED IN OJ
--- NOTE | 2016-08-23 22:48 | NUR ---
PT ACCIDENTLY PULLED HER IV, NEW #22 PLACED IN LEFT HAND
--- NOTE | 2016-08-23 23:00 | NUR ---
HOUSE STAFF AT BEDSIDE
--- NOTE | 2016-08-23 23:00 | NUR ---
REPORT CALLED TO TELE UNIT, ROSARIO. SHE IS AWARE PT NEEDS IVF STARTED , U/A AND DOSE OF MAGNESIUM
--- NOTE | 2016-08-23 23:06 | History & Physical ---
IMMANUELKAIT MAXWELL 08/23/16 7556: General Information and HPI MD Statement: I have seen and personally examined CHELITA ANDERSON and documented this H&P. The patient is a 71 year old F who presented with a patient stated chief complaint of {drowsiness,hypokalemia]. 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 Apparently the patient does not feel that there were any changes to mentation however she states that she was in her normal state of health, when the visiting nurse saw her she had was just up in the morning. She had normal vitals, alongwith her blood pressure and heart rate ,however she had a mild temperature of 99, visiting nurse was concerned as she thought that she was more drowsy than usual and therefore per protocol wanted them to come to the emergency department. The EMS was called and she was brought into the emergency department. On arrival she was completely alert oriented, a little bit lethargic and weak which is not new, she was completely with it and said that the nurse thought she was drowsy however she was actually just up from her sleep and she did not think she needed to come to the hospital. She denied any chest pain, shortness of breath, palpitations, any recent illness , nausea, vomiting or diarrhea him a fever. 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 Home Who Do You Live With? spouse Services at Home: Nursing, Physical Therapy Primary Language: Welsh Smoking Status: Current Everyday Smoker ETOH Use: denies use Illicit Drug Use: marijuana Functional Ability ADLs Unknown: dressing, eating, toileting, bathing. 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 Needs Assist: shopping, housework, finances, food prep, telephone, transportation. Review of Systems Review of Systems Constitutional: Reports: malaise, weakness. Denies: chills, diaphoresis, fever, unexplained weight loss. EENTM: Denies: blurred vision, double vision, visual changes, eye pain. Cardiovascular: Denies: chest pain, edema, orthopena. Respiratory: Reports: short of breath. Denies: cough, hemoptysis, orthopnea, sputum production, stridor, wheezing. GI: Reports: diarrhea, nausea. Denies: abdominal pain, bloating, constipation, distention, bowel incontinence, bloody stool, changes in stool. Genitourinary: Denies: discharge, dysuria, frequency, hematuria. Musculoskeletal: Reports: no symptoms. Skin: Reports: no symptoms. Neurological/Psychological: Reports: see HPI. Hematologic/Endocrine: Reports: no symptoms. Immunologic/Allergic: Reports: no symptoms. All Other Systems: Reviewed and Negative Exam & Diagnostic Data Last 24 Hrs of Vital Signs/I&O Vital Signs Date Time Temp Pulse Resp B/P B/P Pulse O2 O2 Flow FiO2 Mean Ox Delivery Rate 08/24 0104 68 116/72 08/24 0059 99.0 68 20 116/72 95 Nasal Cannula 08/24 2327 98.5 66 18 114/56 95 Nasal 2.0L Cannula 08/23 2322 Nasal 2.0L Cannula 08/23 1954 Nasal 2.0L Cannula 08/23 1902 98.6 96 16 114/67 96 Nasal 2.0L Cannula 08/23 1541 98.5 66 18 112/62 94 Room Air 08/23 1418 95 Room Air 08/23 1417 98.3 61 20 109/60 96 Nasal 3.0L Cannula Intake & Output 08/24 0800 08/24 0000 08/23 1600 Intake Total Output Total Balance Patient 70.307 kg 71.668 kg Weight Weight Reported by Patient Reported by Patient Measurement Method Physical Exam General Appearance Alert, Oriented X3, Cooperative, No Acute Distress Skin No Rashes, No Breakdown, puffy face Skin Temp/Moisture Exam: Warm/Dry Sepsis Skin Exam (color): Normal for Ethnicity HEENT Atraumatic, PERRLA, EOMI Cardiovascular Normal S1, Normal S2, No Murmurs Lungs Clear to Auscultation, Normal Air Movement Abdomen Normal Bowel Sounds, Soft, No Tenderness Neurological Strength at 5/5 X4 Ext, Sensation Intact Extremities No Clubbing, No Cyanosis, edema + Vascular Normal Pulses Last 24 Hrs of Labs/Karel: Laboratory Tests 08/24/16 0000: Urine Opiates Screen 1340.00, Methadone Screen 70, Barbiturate Screen < 60, Ur Phencyclidine Scrn < 6.00, Amphetamines Screen < 100, U Benzodiazepines Scrn > 800 H, Urine Cocaine Screen < 50, Urine Cannabis Screen > 80.00 H, Urine Color YEL, Urine Clarity HAZY H, Urine pH 6.0, Ur Specific [place] 1.020, Urine Protein 30 H, Urine Ketones NEG, Urine Nitrite NEG, Urine Bilirubin NEG, Urine Urobilinogen 0.2, Ur Leukocyte Esterase SMALL H, Ur Microscopic SEDIMENT EXAMINED, Urine RBC RARE, Urine WBC 5-10 H, Ur Epithelial Cells MOD H, Urine Bacteria MANY H, Urine Hemoglobin TRACE-INTACT, Urine Glucose NEG 08/23/16 2330: Troponin I 0.17 *H 08/23/16 2056: Plasma Potassium 2.2 *L 08/23/16 1614: Anion Gap 11, Estimated GFR 40 L, BUN/Creatinine Ratio 10.0, Glucose 93, Calcium 9.3, Magnesium 1.1 L, Total Bilirubin 0.8, AST 22, ALT 35, Alkaline Phosphatase 55, Troponin I 0.11 *H, Total Protein 6.1 L, Albumin 4.0, Globulin 2.1, Albumin/Globulin Ratio 1.9, CBC w Diff MAN DIFF ORDERED, RBC 4.79, MCV 83.7 , MCH 28.0, RDW 15.4 H, MPV 7.7, Gran % 62.0, Lymphocytes % 29.1, Monocytes % 7.0, Eosinophils % 1.4, Basophils % 0.5, Absolute Granulocytes 12.6 H, Segmented Neutrophils 55, Absolute Lymphocytes 5.9 H, Lymphocytes 36, Monocytes 5, Absolute Monocytes 1.4 H, Eosinophils 3, Absolute Eosinophils 0.3, Basophils 1, Absolute Basophils 0.1, Platelet Estimate ADEQUATE, Poikilocytosis 1+, Stomatocytes RARE, Theron Cells 1+, PUBS MCHC 33.5 Microbiology 08/24 0000 URINE ROUT: Urine Culture - RECD 08/23 2328 LOWER RESP: Respiratory Culture - COLB 08/23 2328 LOWER RESP: Gram Stain - COLB 08/23 2328 STOOL: Stool Culture - COLB Diagnostic Data EKG Results Normal sinus rhythm, rate of 65, mild ST elevation in V2, present on one of the old EKGs, QTC of 429. CXR Results Chest x-ray did not show any acute cardiopulmonary process. Other Results Xray hip did not show any appreciable fracture or dislocation of the right hip however severe degenerative changes of the right hip joint with symmetric joint space narrowing and osteophytes were seen. Assessment/Plan Assessment: This is a 71-year-old female with past medical history of hypertension, chronic lymphocytic leukemia in remission now (previously treated with tyrosine kinase inhibitor), type 2 diabetes mellitus, multiple thyroid nodule, osteoarthritis, osteoporosis, Reilly syndrome came in with chief complain of drowsiness and weakness, after being found to have low-grade fever, was sent in to [facility] by the visiting nurse. Vitals at presentation, Tamox of 99.0/pulse of 68, RR of 20, blood pressure 60 up to 70 diastolic and 109 up to 116 systolic, 95% on 2 L. White Count of 20.4 (baseline lower 7.9), A/H of 13.4/40.1, platelet of 355. Chemistries sodium of 135, potassium low at 2.5, BUN/creatinine 13/1.3 (baseline of 0.9), estimated GFR 40, initially low at 1.1, initial set of troponin was positive at 0.11 which was added later to the admission labs. Second set of troponin was elevated at 0.17 however patient did not have any symptoms or any EKG changes. Toxicology was positive for benzodiazepine, opiates and cannabis. UA showed 5-10 WBCs, many bacteria and small leukocyte esterase, patient did not complain of burning however she did have occasional difficulty urinating on and off. We will admit the patient to cardiac telemetry floor for continuous cardiac monitoring. Problem #1 hypokalemia/hypomagnesemia. * The hypokalemia/hypomagnesemia most likely secondary to Viral gastroenteritis like picture. * EKG did not show any changes related to hypokalemia. * Continue to replete potassium and magnesium. * Recheck potassium and magnesium to keep potassium greater than 4 and mentation greater than 2. * Medication list reviewed, for any medications causing hypokalemia, as we will hold them if any, we will also hold lisinopril land spironolactone for now, resume as needed. * Ct iv fluid supplementation. * Serial EKg and troponins ot prashanth out ACS. Problem #2 drowsiness/lethargy * U tox positive for opioids, benzodiazepines and marijuana. * Patient does endorse a history of being on chronic pain medication, and smokes marijuana to manage with the severe right hip pain. * Smokes a few puffs every day. * Watch for signs of withdrawal. * As the patient is in significant pain we'll continue home medication long acting oxycontin in twice a day and oxycodone every 6 hourly as per her home dose, with holding parameter. * UA was also positive, will start her on iv cetrixone, follow cultures. #3 positive UA. * Patient had borderline positive UA with WBCs of 5-10, small leukocyte esterase. * She does have a white count. * She has a low-grade temperature. * We will send urine cultures, continue to follow blood cultures. * Will continue IV ceftriaxone for urinary tract infection for now. * If the cultures are negative then can consider discontinuing the antibiotics. * Continue to watch for vital signs, Tylenol for fever. * Continue oral hydration. * Continue IV hydration as well. Problem #4 acute kidney injury. * Most likely secondary to dehydration. * Continue IV hydration. * Continue to monitor BUN/creatinine. * Avoid nephrotoxic medications. Problem #5 history of hyperlipidemia. * Continue Lipitor 80 mg daily. Problem #6 positive troponins. * Patient's initial set of troponin was not done in the ER however troponins was later added to the initial labs and was found to be positive. * Second set of troponin elevated at 0.17. * No EKG changes, patient does not have any symptoms of chest pain. * The elevated troponin most likely secondary to demand ischemia. * Cardiology consult with Dr. Yu in am * ASa 325 stat once * CT asa 81 mg daily. #7 history of diabetes mellitus. * Hold metformin. * Continue finger stick tied at at bedtime Uri * Consistent carbohydrate diet. * Ct NovoLog low-dose sliding scale. #8 history of Wahkon syndrome. * Continue korlym #9 CLL * treated with irbutinib * in remission now * haemoncology consult. FC dvt px heparin regular diet for now, can change ot CC-3 PP at home opioids with oxycontin BID and oxycodone Q6. As Ranked By This Provider Problem List: 1. Hypokalemia 2. Leukocytosis Core Measures/Miscellaneous Acute Coronary Syndrome ACS Diagnosis: No Cerebrovascular Accident CVA/TIA Diagnosis: No Congestive Heart Failure CHF Diagnosis: No Venous Thromboembolism VTE Risk Factors: Age > 40 [facility] d/t: No contraindications No VTE Pharm Prophylaxis d/t: No contraindications VTE Diagnosis: No VTE Type: NONE VTE Confirmed by (Test): NONE Severe Sepsis Severe Sepsis Present: No Septic Shock Septic Shock Present: No Miscellaneous Documentation Attending Case Discussed With: NITIN CARDOZO MD Primary Care Physician: LINDA MATTHEWS MD Patient sees these Specialists magdalena Level of Patient Care: Telemetry CHERIE CARDOZO MD 08/24/16 0208: General Information and HPI Allergies/Medications Home Med list Alprazolam (Xanax) 0.25 MG TABLET 1 TAB PO BIDP PRN ANXIETY (Reported) Amlodipine Besylate (Norvasc) 5 MG TABLET 1 TAB PO DAILY HEART (Reported) Aspirin (Aspirin*) 81 MG TAB.CHEW 1 TAB PO DAILY HEART (Reported) Atorvastatin Calcium 80 MG TABLET 1 TAB PO DAILY CHOLESTEROL (Reported) Carvedilol (Coreg) 6.25 MG TABLET 1 TAB PO BID HEART (Reported) Celecoxib (Celebrex) 200 MG CAPSULE 1 CAP PO DAILY PAIN (Reported) Dexlansoprazole (Dexilant) 60 MG CAP..BP 1 CAP PO DAILY GI (Reported) Duloxetine HCl (Cymbalta) 60 MG CAPSULE.DR 1 CAP PO DAILY UNKNOWN (Reported) Furosemide 20 MG TABLET 1 TAB PO DAILY EDEMA (Reported) Lisinopril 40 MG TABLET 1 TAB PO DAILY HEART (Reported) Metformin HCl 500 MG TABLET 1 TAB PO BID DIABETES (Reported) Mifepristone (Korlym) 300 MG TABLET 1 TAB PO DAILY ENDO (Reported) Omeprazole 40 MG CAPSULE.DR 1 CAP PO DAILY ACID REFLUX (Reported) Ondansetron HCl (Zofran) 4 MG TABLET 1 TAB PO Q6-8P PRN NAUSEA/VOMITING ( Reported) Oxycodone HCl 5 MG TABLET 1 TAB PO Q8 PAIN (Reported) Oxycodone HCl (Oxycontin) 20 MG TAB.ER.12H 1 TAB PO BID PAIN (Reported) Potassium Chloride (K-Tab ER) 20 MEQ TABLET.ER 1 TAB PO DAILY SUPPLEMENT ( Reported) Pregabalin (Lyrica) 50 MG CAPSULE 1 CAP PO DAILY PAIN (Reported) Spironolactone (Aldactone) 50 MG TABLET 1 TAB PO DAILY UNKNOWN (Reported) Valsartan (Diovan) 160 MG TABLET 1 TAB PO DAILY HEART (Reported) Attending MD Review Statement Attending Statement Attending MD Statement: examined this patient, discuss w/resident/PA/AIR CONDITIONING SUPERVISOR, agreed w/resident/PA/AIR CONDITIONING SUPERVISOR, discussed with family Attending Assessment/Plan: 71 yo F with h/o HTN, CLL in remission, T2DM, chronic hip pain on opiates, 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 Patient's reports that patient had just woken up from her sleep, she was not altered. She c/o occasional dysuria and lower abdominal discomfort. Patient continues to smoke cigarettes and also smokes weed to help her chronic pain. Of note, patient reports having nausea, nonbloody vomiting and diarrhea 2 days ago for which PCP prescribed zofran and lomotil, and since has resolved. She had eaten a [employer] prior to these symptoms, although her did not fall sick. Patient follows Dr. Hensley ([facility]) for her CLL and is currently not on any medications. VSS. Pertinent exam: AAO, dry mucous membranes, pupils equal and RTL, puffiness around the eyes, Neuro nonfocal. Labs: WBC 20.4, H/H 13.4/40.1, Na 135, K 2.5 -- > 2.2, bicarb 34, creat 1.2, Mag 1.1, trop 0.11 --> 0.17, UA small LE, WBC 5-10, Utox positive for benzos and cannabis. CXR neg, Right hip Xray: degenerative changes. EKG: SR, with U-waves in lead V2-4, Qtc 425. Echo (2016): EF 35%, stage 2 diastolic dysfunction. 1. Hypokalemia with underlying hypomagnesemia 2/2 recent viral gastroenteritis. Tele admit, replete K and Mag, IV fluids, serial EKG and troponins. 2. Lethargy, AMS in the setting of opioid use, KWASI and UTI. Panculture, IV ceftriaxone, if UC is negative consider discontinuing antibiotics. Resume opiates with holding parameters. Avoid delirium triggers. IV fluids, trend renal functions. Hold lisinopril and spirinolactone. PT eval. 3. Elevated troponin likely demand ischemia. Monitor for arrhythmias, serial EKG and troponin, echo, cardio consult, aspirin, check lipid panel, TSH, free T4 and A1c. Smoking cessation counseling. 4. CLL. Please consult [facility]. DVT ppx Hep SC. Full code.
[2016-08-23] MEDS ORDERED: METFORMIN HCL500 M3 PO (23:18)
[2016-08-23] MEDS ORDERED: KORLYM300 MG PO (23:18)
[2016-08-24 00:59] VITALS: BP 116/72
--- NOTE | 2016-08-24 02:10 | Admission Certification ---
Admission Certification Certification Statement - As attending physician, I certify that at the time of - admission, based on clinical presentation, severity of - symptoms, need for further diagnostic testing and - therapeutic interventions, and risk of adverse outcomes - without in-hospital treatment, in my clinical assessment, - this patient requires an acute hospital stay for a minimum - of two nights or longer. I have also considered psychsocial - factors such as support system, advanced age, financial - issues, cognitive issues, and failed out-patient treatments, - past re-admission history, safety of patient, and lack of - compliance as applicable. Specific rationale supporting this admission is: Altered mental status, hypokalemia, hypomagnesemia. Elevated troponin likely demand ischemia.
--- NOTE | 2016-08-24 07:18 | Cons- Oncology ---
General Information and HPI Consulting Request Date of Consult: 08/24/16 Requested By: JULIANE WEBSTER,NITIN History of Present Illness: The patient is a 71-year-old woman with known CLL admitted to the hospital with lethargy. The patient has been treated in the past with ibrutinib but has been off therapy for at least a year followed by a lead esthetician/oncologist in [place]. The patient specifically denies fever chills or sweats. She denies productive cough or dysuria. She also denies chest pain shortness of breath or hemoptysis. Allergies/Medications Allergies: Coded Allergies: methotrexate (PT CAN'T REMEMBER REACTION 07/19/16) erythromycin base (PT STATES SHE GETS SHAKY 07/19/16) Home Med List: Alprazolam (Xanax) 0.25 MG TABLET 1 TAB PO BIDP PRN ANXIETY (Reported) Amlodipine Besylate (Norvasc) 5 MG TABLET 1 TAB PO DAILY HEART (Reported) Aspirin (Aspirin*) 81 MG TAB.CHEW 1 TAB PO DAILY HEART (Reported) Atorvastatin Calcium 80 MG TABLET 1 TAB PO DAILY CHOLESTEROL (Reported) Carvedilol (Coreg) 6.25 MG TABLET 1 TAB PO BID HEART (Reported) Celecoxib (Celebrex) 200 MG CAPSULE 1 CAP PO DAILY PAIN (Reported) Dexlansoprazole (Dexilant) 60 MG CAP.DR.BP 1 CAP PO DAILY GI (Reported) Duloxetine HCl (Cymbalta) 60 MG CAPSULE.DR 1 CAP PO DAILY UNKNOWN (Reported) Furosemide 20 MG TABLET 1 TAB PO DAILY EDEMA (Reported) Lisinopril 40 MG TABLET 1 TAB PO DAILY HEART (Reported) Metformin HCl 500 MG TABLET 1 TAB PO BID DIABETES (Reported) Mifepristone (Korlym) 300 MG TABLET 1 TAB PO DAILY ENDO (Reported) Omeprazole 40 MG CAPSULE.DR 1 CAP PO DAILY ACID REFLUX (Reported) Ondansetron HCl (Zofran) 4 MG TABLET 1 TAB PO Q6-8P PRN NAUSEA/VOMITING ( Reported) Oxycodone HCl 5 MG TABLET 1 TAB PO Q8 PAIN (Reported) Oxycodone HCl (Oxycontin) 20 MG TAB.ER.12H 1 TAB PO BID PAIN (Reported) Potassium Chloride (K-Tab ER) 20 MEQ TABLET.ER 1 TAB PO DAILY SUPPLEMENT ( Reported) Pregabalin (Lyrica) 50 MG CAPSULE 1 CAP PO DAILY PAIN (Reported) Spironolactone (Aldactone) 50 MG TABLET 1 TAB PO DAILY UNKNOWN (Reported) Valsartan (Diovan) 160 MG TABLET 1 TAB PO DAILY HEART (Reported) Current Medications: Current Medications Sig/Sugar Start time Last Medication Dose Route Stop Time Status Admin Aspirin 81 MG DAILY 08/24 1000 AC PO Aspirin 325 MG ONCE ONE 08/24 0215 DC 08/24 PO 08/24 0216 0417 Atorvastatin Calcium 80 MG 1700 08/24 1700 AC PO Carvedilol 6.25 MG BID 08/24 0015 AC 08/24 PO 0104 Ceftriaxone Sodium 2,000 MG DAILY 08/24 1000 DC IV Ceftriaxone Sodium 1,000 MG DAILY 08/24 0300 AC 08/24 IV 0417 Heparin Sodium 5,000 UNIT Q8 08/24 0600 AC 08/24 (Porcine) SC 0623 Insulin Aspart 0 TIDAC 08/24 0800 AC SC Lisinopril 40 MG DAILY 08/24 1000 AC PO Magnesium Sulfate 1 GM Q2H 08/23 2359 DC 08/24 Dextrose/Water 100 ML IV 08/24 0358 0300 Oxycodone HCl 5 MG Q8P PRN 08/24 0630 AC PO Oxycodone HCl 20 MG BID 08/23 2317 AC 08/24 PO 0105 Oxycodone HCl 5 MG Q8 08/23 2316 DC PO Potassium Chloride 40 MEQ ONCE ONE 08/24 0100 DC 08/24 PO 08/24 0101 0104 Potassium Chloride 0 .STK-MED ONE 08/23 2205 DC PO Potassium Chloride 40 MEQ Q13H 08/23 2200 AC 08/23 Dextrose/Sodium 1,000 ML IV 08/24 2359 2320 Chloride Potassium Chloride 40 MEQ ONCE ONE 08/23 2200 DC 08/23 PO 08/23 2201 2213 Potassium Chloride 0 .STK-MED ONE 08/23 1947 DC PO Potassium Chloride 10 MEQ Q1H 08/23 1815 DC IV 08/23 1916 Potassium Chloride 20 MEQ ONCE ONE 08/23 1815 DC 08/23 PO 08/23 181 2006 Potassium Chloride 0 .STK-MED ONE 08/23 1805 DC PO Potassium Chloride 0 .STK-MED ONE 08/23 1805 DC IV Potassium Chloride 20 MEQ ONCE ONE 08/23 1730 CAN IV 08/23 173 Potassium Chloride 20 MEQ ONCE ONE 08/23 1715 DC 08/23 PO 08/23 1716 1829 Spironolactone 50 MG DAILY 08/24 1000 AC PO Review of Systems Review of Systems: Patient denies headaches or dizziness. Patient denies nausea vomiting diarrhea or abdominal pain. Patient denies new bone aches. 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 Home Who Do You Live With? spouse Services at Home: Nursing, Physical Therapy Primary Language: Portuguese Smoking Status: Current Everyday Smoker ETOH Use: denies use Illicit Drug Use: marijuana Functional Ability ADLs Unknown: dressing, eating, toileting, bathing. 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 Needs Assist: shopping, housework, finances, food prep, telephone, transportation. Exam & Diagnostic Data Vital Signs and I&O Vital Signs Date Time Temp Pulse Resp B/P B/P Pulse O2 O2 Flow FiO2 Mean Ox Delivery Rate 08/24 0104 68 116/72 08/24 0059 99.0 68 20 116/72 95 Nasal Cannula 08/23 2328 98.5 66 18 114/56 95 Nasal 2.0L Cannula 08/23 2323 Nasal 2.0L Cannula 08/23 1955 Nasal 2.0L Cannula 08/23 1902 98.6 96 16 114/67 96 Nasal 2.0L Cannula 08/23 1541 98.5 66 18 112/62 94 Room Air 08/23 1418 95 Room Air 08/23 1417 98.3 61 20 109/60 96 Nasal 3.0L Cannula Intake & Output 08/24 0800 08/24 0000 08/23 1600 Intake Total 1280 Output Total 450 Balance 830 Intake, IV 800 Intake, Oral 480 Number 0 Bowel Movements Output, Urine 450 Patient 155 lb 158 lb Weight Weight Reported by Patient Reported by Patient Measurement Method Gen.: in NAD ENT: Sclera anicteric Chest: Normal respiratory effort, decreased breath sounds Cor: RRR, no extra sounds Abdomen: Soft, bowel sounds present, no tenderness, no rebound Extremities: Without clubbing, cyanosis, or asymmetric edema Neurology: Alert and oriented 3, no gross deficit Skin: No rashes Last 48 Hours of Lab Results: Laboratory Tests 08/24 08/24 08/24 0630 0630 0000 Chemistry Sodium Pending Potassium Pending Chloride Pending Carbon Dioxide Pending Anion Gap Pending BUN Pending Creatinine Pending BUN/Creatinine Ratio Pending Magnesium Pending Troponin I Cancelled Pending Triglycerides Pending Cholesterol Pending LDL Cholesterol, Calc Pending HDL Cholesterol Pending Cholesterol/HDL Ratio Pending TSH Pending Free T4 Pending Hematology CBC w Diff Pending WBC Pending RBC Pending Hgb Pending Hct Pending MCV Pending MCH Pending RDW Pending Plt Count Pending MPV Pending PUBS MCHC Pending Toxicology Urine Opiates Screen (>2000 NG/ML) 1340.00 Methadone Screen (>300 NG/ML) 70 Barbiturate Screen (>200 NG/ML) < 60 Ur Phencyclidine Scrn (>25 NG/ML) < 6.00 Amphetamines Screen (>1000 NG/ML) < 100 U Benzodiazepines Scrn (>200 NG/ML) > 800 H Urine Cocaine Screen (>300 NG/ML) < 50 Urine Cannabis Screen (>50 NG/ML) > 80.00 H Urines Urine Color (YEL,AMB,STR) YEL Urine Clarity (CLEAR) HAZY H Urine pH (5.0 - 8.0) 6.0 Ur Specific [place] (1.001 - 1.035) 1.020 Urine Protein (NEG,<30 MG/DL) 30 H Urine Ketones (NEG) NEG Urine Nitrite (NEG) NEG Urine Bilirubin (NEG) NEG Urine Urobilinogen (0.1 - 1.0 EU/dl) 0.2 Ur Leukocyte Esterase (NEG) SMALL H Ur Microscopic SEDIMENT EXAMINED Urine RBC (0 - 5 /HPF) RARE Urine WBC (0 - 2 /HPF) 5-10 H Ur Epithelial Cells (NONE,FEW) MOD H Urine Bacteria (NEG/NONE) MANY H Urine Hemoglobin (NEG) TRACE-INTACT Urine Glucose (N MG/DL) NEG 08/23 08/23 08/23 2330 2056 1614 Chemistry Sodium (137 - 145 mmol/L) 135 L Potassium (3.5 - 5.1 mmol/L) 2.5 *L Plasma Potassium (3.4 - 4.4 MMOL/L) 2.2 *L Chloride (98 - 107 mmol/L) 89 L Carbon Dioxide (22 - 30 mmol/L) 34 H Anion Gap (5 - 16) 11 BUN (7 - 17 mg/dL) 13 Creatinine (0.5 - 1.0 mg/dL) 1.3 H Estimated GFR (>60 ml/min) 40 L BUN/Creatinine Ratio (7 - 25 %) 10.0 Glucose (65 - 99 mg/dL) 93 Calcium (8.4 - 10.2 mg/dL) 9.3 Magnesium (1.6 - 2.3 mg/dL) 1.1 L Total Bilirubin (0.2 - 1.3 mg/dL) 0.8 AST (14 - 36 U/L) 22 ALT (9 - 52 U/L) 35 Alkaline Phosphatase (<127 U/L) 55 Troponin I (< 0.11 ng/ml) 0.17 *H 0.11 *H Total Protein (6.3 - 8.2 g/dL) 6.1 L Albumin (3.5 - 5.0 g/dL) 4.0 Globulin (1.9 - 4.2 gm/dL) 2.1 Albumin/Globulin Ratio (1.1 - 2.2 %) 1.9 Hematology CBC w Diff MAN DIFF ORDERED WBC (4.8 - 10.8 /CUMM) 20.4 H RBC (4.20 - 5.40 /CUMM) 4.79 Hgb (12.0 - 16.0 G/DL) 13.4 Hct (37 - 47 %) 40.1 MCV (81.0 - 99.0 FL) 83.7 MCH (27.0 - 31.0 PG) 28.0 RDW (11.5 - 14.5 %) 15.4 H Plt Count (130 - 400 /CUMM) 355 MPV (7.4 - 10.4 FL) 7.7 Gran % (42.2 - 75.2 %) 62.0 Lymphocytes % (20.5 - 51.1 %) 29.1 Monocytes % (1.7 - 9.3 %) 7.0 Eosinophils % (0 - 5 %) 1.4 Basophils % (0.0 - 2.0 %) 0.5 Absolute Granulocytes (1.4 - 6.5 /CUMM) 12.6 H Segmented Neutrophils (42.2 - 75.2 %) 55 Absolute Lymphocytes (1.2 - 3.4 /CUMM) 5.9 H Lymphocytes (20.5 - 51.1 %) 36 Monocytes (1.7 - 9.3 %) 5 Absolute Monocytes (0.10 - 0.60 /CUMM) 1.4 H Eosinophils (0 - 5.0 %) 3 Absolute Eosinophils (0.0 - 0.7 /CUMM) 0.3 Basophils (0.0 - 2.0 %) 1 Absolute Basophils (0.0 - 0.2 /CUMM) 0.1 Platelet Estimate (ADEQUATE) ADEQUATE Poikilocytosis 1+ Stomatocytes RARE [place] Cells 1+ PUBS MCHC (33.0 - 37.0 G/DL) 33.5 Cultures-thus far negative Imaging/Other Studies: Chest x-ray-no active disease Assessment/Plan Assessment: 1. CLL-the patient's current blood counts would not impact her overall health status. Interestingly, patient has a significant neutrophilia raising the possibility of infection. Patient is abrams cultured and on antibiotics. Recommend-no need for pharmacologic intervention for her CLL or obtaining further radiologic studies for now 2. Overall status-patient is hypokalemic, patient is hypomagnesemic , patient has elevated troponins. As mentioned above, sepsis also needs to be considered. Recommend-workup for the above-mentioned abnormalities Please call if further issues develop. Recommendations: .. Consult Acknowledgment - Thank you for your consult request.
[2016-08-24 08:15] LABS: ABSOLUTE BASOPHIL COUNT 0.1 /CUMM (0.0-0.2); ABSOLUTE EOSINOPHIL COUNT 0.2 /CUMM (0.0-0.7); ABSOLUTE GRANULOCYTE CT 7.2 /CUMM (1.4-6.5); ABSOLUTE LYMPH COUNT 6.2 /CUMM (1.2-3.4); ABSOLUTE MONOCYTE COUNT 0.8 /CUMM (0.10-0.60); BASOPHIL % 0.5 % (0.0-2.0); EOSINOPHIL % 1.7 % (0-5); MEAN CORPUSCULAR HGB 28.6 PG (27.0-31.0); MEAN CORPUSCULAR HGB CONC 34.4 G/DL (33.0-37.0); MEAN CORPUSCULAR VOLUME 83.2 FL (81.0-99.0); MEAN PLATELET VOLUME 8.4 FL (7.4-10.4); RBC DISTRIBUTION WIDTH 15.2 % (11.5-14.5); WHITE BLOOD CELL COUNT 14.6 /CUMM (4.8-10.8)
[2016-08-24 08:33] LABS: HEMATOCRIT 33.3 % (37-47)
[2016-08-24 08:35] VITALS: BP 110/62
[2016-08-24 09:00] LABS: GRANULOCYTE % 49.6 % (42.2-75.2); PLATELET COUNT 273 /CUMM (130-400)
--- NOTE | 2016-08-24 09:58 | PN- Housestaff ---
Subjective Follow-up For: UTI Electrolyte abnnormality KWASI Subjective: Seen and examined at bedside. She dose not endorse any acute complaint. No sob/ cp/palpitation/fever/chills/nausea/vomiting,dysuria/abdominal pain or focal neurological deficit. No acute o/n event Review of Systems Constitutional: Reports: no symptoms. Objective Last 24 Hrs of Vital Signs/I&O Vital Signs Date Time Temp Pulse Resp B/P B/P Pulse O2 O2 Flow FiO2 Mean Ox Delivery Rate 08/24 1722 97 Nasal 2.0L Cannula 08/24 1641 98.2 58 18 108/60 94 08/24 1007 Room Air Room Air 08/24 0955 58 110/62 08/24 0955 58 110/62 08/24 0835 98.2 58 18 110/62 96 08/24 0800 Nasal 2.0L Cannula 08/24 0104 68 116/72 08/24 0059 99.0 68 20 116/72 95 Nasal Cannula 08/23 2328 98.5 66 18 114/56 95 Nasal 2.0L Cannula 08/23 2323 Nasal 2.0L Cannula 08/23 1955 Nasal 2.0L Cannula Intake & Output 08/24 1600 08/24 0800 08/24 0000 Intake Total 1080 1280 Output Total 400 450 Balance 680 830 Intake, IV 600 800 Intake, Oral 480 480 Number 0 Bowel Movements Output, Urine 400 450 Patient 70.307 kg Weight Weight Reported by Patient Measurement Method Physical Exam General Appearance: Alert, Oriented X3, Cooperative Cardiovascular: Regular Rate, Normal S1, Normal S2 Lungs: Clear to Auscultation, Normal Air Movement Abdomen: Normal Bowel Sounds, Soft, No Tenderness Neurological: Normal Speech, Normal Tone, Sensation Intact Extremities: No Edema, Normal Pulses, No Tenderness/Swelling Assessment/Plan Assessment: This is a 71 yo lady with pmh of HTN,CLL Treated with Ibrutinib, type 2 diabetes mellitus on metformin,multiple thyroid nodule, prior history of anemia of unknown etiology, osteoarthritis, hypokalemia, 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 ED workup is remarkable for hypomagnesemia, hypokalemia, creatinine elevation, UTI and positive troponins. Impression and Plan Generalized weakness Progressively worsening, with AMS as reported by home health nurse. Possible 2/2 to infection and its consequence of decreased oral intake. Pt is receiving gentle hydration and was noted to have had a good PT session. UTI Symptomatic with reported increased frequency and foul smell and altered mental status with laboratory findings of leukocytosis and UA suggestive of UTI. Day b2 of ceftriaxone with symptomatic improvement and improving WBC count. Will continue with ceftriaxone and f/u on urine culturee. Elevated Troponin Absence of sympots of chest pain,palpitation,sob,numbness with unremrkable ecg and last year unremarkable cath makes ACS likely. Most likely etiology of elevated troponins is demand supply mismatch due to ascute illness of UTI. Cardiology consulted, reccomended decrease in statin dose,and echo in addition to current management(appreciated). #Electrolyte abnormalities Hypokalemia and hypomagnesemia. No telemetry acute event seen. Replenished potassium and magnesium. Will trend tomorrow morning. #Elevated Creatinine Prerenal secondary to dehydration. creatinine improving s/p hydration. Will encourage increased fluid intake and trend BEP. Will discontinue IVF after completion of second bage (pt has a low EF). Problem List: 1. Hypokalemia Pain Ratin Pain Location: none Pain Goal: Remain pain free Pain Plan: none Tomorrow's Labs & Rationales: BEP/MAG: Electrolyte abnormalities
--- NOTE | 2016-08-24 11:39 | PN- Att Addend ---
Attending Addendum Attending Brief Note Patient seen and examined, feels okay. Denies any current complaints. Patient was admitted with generalized weakness and found to have electrolytes abnormalities (hypokalemia and hypomagnesemia), mild acute kidney injury as well as a UTI. Patient also had bump in troponin with question if this was 2/2 to NSTEMI vs demand ischemia. Vital Signs Date Time Temp Pulse Resp B/P B/P Pulse O2 O2 Flow FiO2 Mean Ox Delivery Rate 08/24 1007 Room Air Room Air 08/24 0955 58 110/62 08/24 0955 58 110/62 08/24 0835 98.2 58 18 110/62 96 08/24 0104 68 116/72 08/24 0059 99.0 68 20 116/72 95 Nasal Cannula 08/23 2328 98.5 66 18 114/56 95 Nasal 2.0L Cannula 08/23 2323 Nasal 2.0L Cannula 08/23 1955 Nasal 2.0L Cannula 08/23 1902 98.6 96 16 114/67 96 Nasal 2.0L Cannula 08/23 1541 98.5 66 18 112/62 94 Room Air 08/23 1418 95 Room Air 08/23 1417 98.3 61 20 109/60 96 Nasal 3.0L Cannula on exam; aox3, nad. cv; s1,s2, rrr resp; clear abd; soft, nt, bs+ ext; no edema. Laboratory Tests 08/24 08/24 08/24 1100 0630 0630 Chemistry Sodium (137 - 145 mmol/L) 135 L Potassium (3.5 - 5.1 mmol/L) 3.4 L Chloride (98 - 107 mmol/L) 93 L Carbon Dioxide (22 - 30 mmol/L) 34 H Anion Gap (5 - 16) 7 BUN (7 - 17 mg/dL) 15 Creatinine (0.5 - 1.0 mg/dL) 1.2 H Estimated GFR (>60 ml/min) 44 L BUN/Creatinine Ratio (7 - 25 %) 12.5 Hemoglobin A1c Pending Magnesium (1.6 - 2.3 mg/dL) 1.7 Troponin I (< 0.11 ng/ml) Cancelled 0.16 *H Triglycerides (<150 mg/dL) 106 Cholesterol (<200 MG/DL) 78 LDL Cholesterol, Calc (65 - 129 mg/dL) 22 L HDL Cholesterol (40 - 60 mg/dL) 36 L Cholesterol/HDL Ratio (0.00 - 4.23 %) 2.2 TSH (0.270 - 4.200 uIU/mL) 2.630 Free T4 (0.78 - 2.44 ng/dL) 0.96 Hematology CBC w Diff NO MAN DIFF REQ WBC (4.8 - 10.8 /CUMM) 14.6 H RBC (4.20 - 5.40 /CUMM) 4.00 L Hgb (12.0 - 16.0 G/DL) 11.4 L Hct (37 - 47 %) 33.3 L MCV (81.0 - 99.0 FL) 83.2 MCH (27.0 - 31.0 PG) 28.6 RDW (11.5 - 14.5 %) 15.2 H Plt Count (130 - 400 /CUMM) 273 MPV (7.4 - 10.4 FL) 8.4 Gran % (42.2 - 75.2 %) 49.6 Lymphocytes % (20.5 - 51.1 %) 42.4 Monocytes % (1.7 - 9.3 %) 5.8 Eosinophils % (0 - 5 %) 1.7 Basophils % (0.0 - 2.0 %) 0.5 Absolute Granulocytes (1.4 - 6.5 /CUMM) 7.2 H Absolute Lymphocytes (1.2 - 3.4 /CUMM) 6.2 H Absolute Monocytes (0.10 - 0.60 /CUMM) 0.8 H Absolute Eosinophils (0.0 - 0.7 /CUMM) 0.2 Absolute Basophils (0.0 - 0.2 /CUMM) 0.1 PUBS MCHC (33.0 - 37.0 G/DL) 34.4 08/24 08/23 08/23 0000 2330 2056 Chemistry Plasma Potassium (3.4 - 4.4 MMOL/L) 2.2 *L Troponin I (< 0.11 ng/ml) 0.17 *H Toxicology Urine Opiates Screen (>2000 NG/ML) 1340.00 Methadone Screen (>300 NG/ML) 70 Barbiturate Screen (>200 NG/ML) < 60 Ur Phencyclidine Scrn (>25 NG/ML) < 6.00 Amphetamines Screen (>1000 NG/ML) < 100 U Benzodiazepines Scrn (>200 NG/ML) > 800 H Urine Cocaine Screen (>300 NG/ML) < 50 Urine Cannabis Screen (>50 NG/ML) > 80.00 H Urines Urine Color (YEL,AMB,STR) YEL Urine Clarity (CLEAR) HAZY H Urine pH (5.0 - 8.0) 6.0 Ur Specific [place] (1.001 - 1.035) 1.020 Urine Protein (NEG,<30 MG/DL) 30 H Urine Ketones (NEG) NEG Urine Nitrite (NEG) NEG Urine Bilirubin (NEG) NEG Urine Urobilinogen (0.1 - 1.0 EU/dl) 0.2 Ur Leukocyte Esterase (NEG) SMALL H Ur Microscopic SEDIMENT EXAMINED Urine RBC (0 - 5 /HPF) RARE Urine WBC (0 - 2 /HPF) 5-10 H Ur Epithelial Cells (NONE,FEW) MOD H Urine Bacteria (NEG/NONE) MANY H Urine Hemoglobin (NEG) TRACE-INTACT Urine Glucose (N MG/DL) NEG 08/23 1614 Chemistry Sodium (137 - 145 mmol/L) 135 L Potassium (3.5 - 5.1 mmol/L) 2.5 *L Chloride (98 - 107 mmol/L) 89 L Carbon Dioxide (22 - 30 mmol/L) 34 H Anion Gap (5 - 16) 11 BUN (7 - 17 mg/dL) 13 Creatinine (0.5 - 1.0 mg/dL) 1.3 H Estimated GFR (>60 ml/min) 40 L BUN/Creatinine Ratio (7 - 25 %) 10.0 Glucose (65 - 99 mg/dL) 93 Calcium (8.4 - 10.2 mg/dL) 9.3 Magnesium (1.6 - 2.3 mg/dL) 1.1 L Total Bilirubin (0.2 - 1.3 mg/dL) 0.8 AST (14 - 36 U/L) 22 ALT (9 - 52 U/L) 35 Alkaline Phosphatase (<127 U/L) 55 Troponin I (< 0.11 ng/ml) 0.11 *H Total Protein (6.3 - 8.2 g/dL) 6.1 L Albumin (3.5 - 5.0 g/dL) 4.0 Globulin (1.9 - 4.2 gm/dL) 2.1 Albumin/Globulin Ratio (1.1 - 2.2 %) 1.9 Hematology CBC w Diff MAN DIFF ORDERED WBC (4.8 - 10.8 /CUMM) 20.4 H RBC (4.20 - 5.40 /CUMM) 4.79 Hgb (12.0 - 16.0 G/DL) 13.4 Hct (37 - 47 %) 40.1 MCV (81.0 - 99.0 FL) 83.7 MCH (27.0 - 31.0 PG) 28.0 RDW (11.5 - 14.5 %) 15.4 H Plt Count (130 - 400 /CUMM) 355 MPV (7.4 - 10.4 FL) 7.7 Gran % (42.2 - 75.2 %) 62.0 Lymphocytes % (20.5 - 51.1 %) 29.1 Monocytes % (1.7 - 9.3 %) 7.0 Eosinophils % (0 - 5 %) 1.4 Basophils % (0.0 - 2.0 %) 0.5 Absolute Granulocytes (1.4 - 6.5 /CUMM) 12.6 H Segmented Neutrophils (42.2 - 75.2 %) 55 Absolute Lymphocytes (1.2 - 3.4 /CUMM) 5.9 H Lymphocytes (20.5 - 51.1 %) 36 Monocytes (1.7 - 9.3 %) 5 Absolute Monocytes (0.10 - 0.60 /CUMM) 1.4 H Eosinophils (0 - 5.0 %) 3 Absolute Eosinophils (0.0 - 0.7 /CUMM) 0.3 Basophils (0.0 - 2.0 %) 1 Absolute Basophils (0.0 - 0.2 /CUMM) 0.1 Platelet Estimate (ADEQUATE) ADEQUATE Poikilocytosis 1+ Stomatocytes RARE [place] Cells 1+ PUBS MCHC (33.0 - 37.0 G/DL) 33.5 A/P; 71 y/o F with pmh sig for hypertension, chronic lymphocytic leukemia treated in the past with Ibrutinib, type 2 diabetes mellitus on metformin, multiple thyroid nodule, prior history of anemia of unknown etiology, osteoarthritis, hypokalemia, 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 Electrolytes are getting corrected. Continue to replete her potassium. Patient received IV fluids and now creatinine is improving. We will follow-up on the urine culture and adjust antibiotics accordingly. Patient has been seen by oncology, no further recommendations are made. Cardiology evaluation is pending for positive troponins. Currently patient on aspirin, beta shayy, sadie, aldactone as well as statin. DVT Px; Hep sq. Pt eval is done who recommend home self care. Possible DC this w/e.
--- NOTE | 2016-08-24 13:48 | Cons- Cardiology ---
General Information and HPI Consulting Request Date of Consult: 08/24/16 Requested By: DONNIE MARTINEZ MD Reason for Consult: Positive Troponin I. Source of Information: patient, family, old records Exam Limitations: poor historian History of Present Illness: Mrs. 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 (11/2015), as well as, hypertension, dyslipidemia, long-standing tobacco use, diabetes mellitus and a strong family history of coronary artery disease who presented from home via ambulance with altered mental status, lethargy etc. and who was discovered to have a urinary tract infection. A Troponin I level was also drawn and found to be positive and it is for this reason that a cardiology consultation was requested. She was last hospitalized here (07/04-07/06/2015) with lethargy, shortness of breath and hypoxemia with a positive Troponin I and ECG changes from what was felt to be asymmetric pulmonary edema. 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 An echocardiogram performed during her last hospitalization (07/06/2015) revealed:a normal size left ventricle with moderate concentric LVH, moderately reduced global LV systolic functionwith EFof 35%, moderately dilated LA, normal RV size and function, normal size RA,age-related valvular changes, no pericardial effusion, and a normal size aortic root. Doppler portion of the study revealed trace mitral, mild tricuspid, and trace pulmonic regurgitation, mildly elevated estimated PA systolic pressure of 39 mmHg, and stage II diastolic dysfunction. Allergies/Medications Allergies: Coded Allergies: methotrexate (PT CAN'T REMEMBER REACTION 07/19/16) erythromycin base (PT STATES SHE GETS SHAKY 07/19/16) Home Med List: Alprazolam (Xanax) 0.25 MG TABLET 1 TAB PO BIDP PRN ANXIETY (Reported) Amlodipine Besylate (Norvasc) 5 MG TABLET 1 TAB PO DAILY HEART (Reported) Aspirin (Aspirin*) 81 MG TAB.CHEW 1 TAB PO DAILY HEART (Reported) Atorvastatin Calcium 80 MG TABLET 1 TAB PO DAILY CHOLESTEROL (Reported) Carvedilol (Coreg) 6.25 MG TABLET 1 TAB PO BID HEART (Reported) Celecoxib (Celebrex) 200 MG CAPSULE 1 CAP PO DAILY PAIN (Reported) Dexlansoprazole (Dexilant) 60 MG CAP.DR.BP 1 CAP PO DAILY GI (Reported) Duloxetine HCl (Cymbalta) 60 MG CAPSULE.DR 1 CAP PO DAILY UNKNOWN (Reported) Furosemide 20 MG TABLET 1 TAB PO DAILY EDEMA (Reported) Lisinopril 40 MG TABLET 1 TAB PO DAILY HEART (Reported) Metformin HCl 500 MG TABLET 1 TAB PO BID DIABETES (Reported) Mifepristone (Korlym) 300 MG TABLET 1 TAB PO DAILY ENDO (Reported) Omeprazole 40 MG CAPSULE.DR 1 CAP PO DAILY ACID REFLUX (Reported) Ondansetron HCl (Zofran) 4 MG TABLET 1 TAB PO Q6-8P PRN NAUSEA/VOMITING ( Reported) Oxycodone HCl 5 MG TABLET 1 TAB PO Q8 PAIN (Reported) Oxycodone HCl (Oxycontin) 20 MG TAB.ER.12H 1 TAB PO BID PAIN (Reported) Potassium Chloride (K-Tab ER) 20 MEQ TABLET.ER 1 TAB PO DAILY SUPPLEMENT ( Reported) Pregabalin (Lyrica) 50 MG CAPSULE 1 CAP PO DAILY PAIN (Reported) Spironolactone (Aldactone) 50 MG TABLET 1 TAB PO DAILY UNKNOWN (Reported) Valsartan (Diovan) 160 MG TABLET 1 TAB PO DAILY HEART (Reported) Past History Travel History Traveled to [place] past 21 day No Medical History Blood Transfusion Hx: No Neurological: STROKE EENT: NONE Cardiovascular: hypertension, hyperlipidemia, myocardial infarction, ?LV HYPERTROPHY Respiratory: NONE Gastrointestinal: NONE Hepatic: NONE Renal: NONE Musculoskeletal: osteoarthritis Psychiatric: NONE Endocrine: diabetes, THYROID NODULE Blood Disorders: NONE Cancer(s): CLL 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 Home Who Do You Live With? spouse Services at Home: Nursing, Physical Therapy Primary Language: [place] Zealander Smoking Status: Current Everyday Smoker ETOH Use: denies use Illicit Drug Use: marijuana Functional Ability ADLs Unknown: dressing, eating, toileting, bathing. 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 Needs Assist: shopping, housework, finances, food prep, telephone, transportation. Exam & Diagnostic Data Vital Signs and I&O Vital Signs Date Time Temp Pulse Resp B/P B/P Pulse O2 O2 Flow FiO2 Mean Ox Delivery Rate 08/24 1007 Room Air Room Air 08/24 0955 58 110/62 08/24 0955 58 110/62 08/24 0835 98.2 58 18 110/62 96 08/24 0800 Nasal 2.0L Cannula 08/24 0104 68 116/72 08/24 0059 99.0 68 20 116/72 95 Nasal Cannula 08/23 2328 98.5 66 18 114/56 95 Nasal 2.0L Cannula 08/23 2323 Nasal 2.0L Cannula 08/23 1955 Nasal 2.0L Cannula 08/23 1902 98.6 96 16 114/67 96 Nasal 2.0L Cannula 08/23 1541 98.5 66 18 112/62 94 Room Air 08/23 1418 95 Room Air 08/23 1417 98.3 61 20 109/60 96 Nasal 3.0L Cannula Intake & Output 08/24 1600 08/24 0800 08/24 0000 08/23 1600 08/23 0800 08/23 0000 Intake Total 1280 Output Total 450 Balance 830 Intake, IV 800 Intake, Oral 480 Number 0 Bowel Movements Output, Urine 450 Patient 155 lb 158 lb Weight Weight Reported by Patient Reported by Patient Measurement Method Physical Exam: Well-developed, overweight elderly female in no acute distress. Vital signs: See above. HEENT: Normocephalic, atraumatic, EOMI, slightly dry mucous membranes. Neck: No JVD, no bruits. Lungs: Decreased breath sounds bilaterally. Heart: S1, S2 with soft systolic grade 1-2/6 systolic murmurbest heard in the base. No gallop or rub appreciated. PMI fifth ICS at [facility]. Abdomen: Soft, nontender, positive bowel sounds. Extremities: No cyanosis, clubbing, or edema. Labs/Karel Results: Laboratory Tests 08/24 08/24 08/24 1100 0630 0630 Chemistry Sodium (137 - 145 mmol/L) 135 L Potassium (3.5 - 5.1 mmol/L) 3.4 L Chloride (98 - 107 mmol/L) 93 L Carbon Dioxide (22 - 30 mmol/L) 34 H Anion Gap (5 - 16) 7 BUN (7 - 17 mg/dL) 15 Creatinine (0.5 - 1.0 mg/dL) 1.2 H Estimated GFR (>60 ml/min) 44 L BUN/Creatinine Ratio (7 - 25 %) 12.5 Hemoglobin A1c (4.2 - 5.8 %) 5.6 Magnesium (1.6 - 2.3 mg/dL) 1.7 Troponin I (< 0.11 ng/ml) Cancelled 0.16 *H Triglycerides (<150 mg/dL) 106 Cholesterol (<200 MG/DL) 78 LDL Cholesterol, Calc (65 - 129 mg/dL) 22 L HDL Cholesterol (40 - 60 mg/dL) 36 L Cholesterol/HDL Ratio (0.00 - 4.23 %) 2.2 TSH (0.270 - 4.200 uIU/mL) 2.630 Free T4 (0.78 - 2.44 ng/dL) 0.96 Hematology CBC w Diff NO MAN DIFF REQ WBC (4.8 - 10.8 /CUMM) 14.6 H RBC (4.20 - 5.40 /CUMM) 4.00 L Hgb (12.0 - 16.0 G/DL) 11.4 L Hct (37 - 47 %) 33.3 L MCV (81.0 - 99.0 FL) 83.2 MCH (27.0 - 31.0 PG) 28.6 RDW (11.5 - 14.5 %) 15.2 H Plt Count (130 - 400 /CUMM) 273 MPV (7.4 - 10.4 FL) 8.4 Gran % (42.2 - 75.2 %) 49.6 Lymphocytes % (20.5 - 51.1 %) 42.4 Monocytes % (1.7 - 9.3 %) 5.8 Eosinophils % (0 - 5 %) 1.7 Basophils % (0.0 - 2.0 %) 0.5 Absolute Granulocytes (1.4 - 6.5 /CUMM) 7.2 H Absolute Lymphocytes (1.2 - 3.4 /CUMM) 6.2 H Absolute Monocytes (0.10 - 0.60 /CUMM) 0.8 H Absolute Eosinophils (0.0 - 0.7 /CUMM) 0.2 Absolute Basophils (0.0 - 0.2 /CUMM) 0.1 PUBS MCHC (33.0 - 37.0 G/DL) 34.4 05/12 05/11 05/11 0000 2330 2056 Chemistry Plasma Potassium (3.4 - 4.4 MMOL/L) 2.2 *L Troponin I (< 0.11 ng/ml) 0.17 *H Toxicology Urine Opiates Screen (>2000 NG/ML) 1340.00 Methadone Screen (>300 NG/ML) 70 Barbiturate Screen (>200 NG/ML) < 60 Ur Phencyclidine Scrn (>25 NG/ML) < 6.00 Amphetamines Screen (>1000 NG/ML) < 100 U Benzodiazepines Scrn (>200 NG/ML) > 800 H Urine Cocaine Screen (>300 NG/ML) < 50 Urine Cannabis Screen (>50 NG/ML) > 80.00 H Urines Urine Color (YEL,AMB,STR) YEL Urine Clarity (CLEAR) HAZY H Urine pH (5.0 - 8.0) 6.0 Ur Specific [place] (1.001 - 1.035) 1.020 Urine Protein (NEG,<30 MG/DL) 30 H Urine Ketones (NEG) NEG Urine Nitrite (NEG) NEG Urine Bilirubin (NEG) NEG Urine Urobilinogen (0.1 - 1.0 EU/dl) 0.2 Ur Leukocyte Esterase (NEG) SMALL H Ur Microscopic SEDIMENT EXAMINED Urine RBC (0 - 5 /HPF) RARE Urine WBC (0 - 2 /HPF) 5-10 H Ur Epithelial Cells (NONE,FEW) MOD H Urine Bacteria (NEG/NONE) MANY H Urine Hemoglobin (NEG) TRACE-INTACT Urine Glucose (N MG/DL) NEG 08/23 1614 Chemistry Sodium (137 - 145 mmol/L) 135 L Potassium (3.5 - 5.1 mmol/L) 2.5 *L Chloride (98 - 107 mmol/L) 89 L Carbon Dioxide (22 - 30 mmol/L) 34 H Anion Gap (5 - 16) 11 BUN (7 - 17 mg/dL) 13 Creatinine (0.5 - 1.0 mg/dL) 1.3 H Estimated GFR (>60 ml/min) 40 L BUN/Creatinine Ratio (7 - 25 %) 10.0 Glucose (65 - 99 mg/dL) 93 Calcium (8.4 - 10.2 mg/dL) 9.3 Magnesium (1.6 - 2.3 mg/dL) 1.1 L Total Bilirubin (0.2 - 1.3 mg/dL) 0.8 AST (14 - 36 U/L) 22 ALT (9 - 52 U/L) 35 Alkaline Phosphatase (<127 U/L) 55 Troponin I (< 0.11 ng/ml) 0.11 *H Total Protein (6.3 - 8.2 g/dL) 6.1 L Albumin (3.5 - 5.0 g/dL) 4.0 Globulin (1.9 - 4.2 gm/dL) 2.1 Albumin/Globulin Ratio (1.1 - 2.2 %) 1.9 Hematology CBC w Diff MAN DIFF ORDERED WBC (4.8 - 10.8 /CUMM) 20.4 H RBC (4.20 - 5.40 /CUMM) 4.79 Hgb (12.0 - 16.0 G/DL) 13.4 Hct (37 - 47 %) 40.1 MCV (81.0 - 99.0 FL) 83.7 MCH (27.0 - 31.0 PG) 28.0 RDW (11.5 - 14.5 %) 15.4 H Plt Count (130 - 400 /CUMM) 355 MPV (7.4 - 10.4 FL) 7.7 Gran % (42.2 - 75.2 %) 62.0 Lymphocytes % (20.5 - 51.1 %) 29.1 Monocytes % (1.7 - 9.3 %) 7.0 Eosinophils % (0 - 5 %) 1.4 Basophils % (0.0 - 2.0 %) 0.5 Absolute Granulocytes (1.4 - 6.5 /CUMM) 12.6 H Segmented Neutrophils (42.2 - 75.2 %) 55 Absolute Lymphocytes (1.2 - 3.4 /CUMM) 5.9 H Lymphocytes (20.5 - 51.1 %) 36 Monocytes (1.7 - 9.3 %) 5 Absolute Monocytes (0.10 - 0.60 /CUMM) 1.4 H Eosinophils (0 - 5.0 %) 3 Absolute Eosinophils (0.0 - 0.7 /CUMM) 0.3 Basophils (0.0 - 2.0 %) 1 Absolute Basophils (0.0 - 0.2 /CUMM) 0.1 Platelet Estimate (ADEQUATE) ADEQUATE Poikilocytosis 1+ Stomatocytes RARE Theron Cells 1+ PUBS MCHC (33.0 - 37.0 G/DL) 33.5 Diagnostic Data EKG Results (08/24/2016) sinus rhythm and minor nondiagnostic T-wave abnormalities in the inferior leads. CXR Results (08/23/2016) no acute cardiopulmonary process. 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 (11/2015), as well as, HTN, HLD, DM, long-standing tobacco use, and a strong FH for CAD who presented with lethargy, frequency,foul-smelling urine etc. and who was discovered to have a urinary tract infection, mild acute kidney injury/electrolyte abnormalities, and a positive Troponin I. Suspect that the modest Troponin I elevation is on the basis of demand ischemia/ type 2 MS from the acute infection, previously documented left ventricular hypertrophy, etc., however, she does have a risk equivalent and multiple risk factors for coronary artery disease so continued close clinical monitoring is recommended. Recommendations: * Would continue on telemetry and with efforts for coronary risk reduction. * Obtain echocardiogramto reassess her systolic/diastolic function, degree of left ventricular hypertrophy, estimated PA pressure, etc. * Consider cutting back on her statin dosage based on her lipid panel. * Aim to maintain potassium at between 4.0-4.5 mEq per liter and magnesium at or above 2.0 mg/L. * Continue deep venous thrombosis prophylaxis. * Obtain [facility] discharge summary, cardiac catheterization report, etc. from June 2015 admission. Further recommendations will follow, Thank you. Consult Acknowledgment - Thank you for your consult request.
[2016-08-24 16:41] VITALS: BP 108/60
--- NOTE | 2016-08-24 19:20 | ECHOCARDIOGRAM REPORT ---
CHELITA ANDERSON Age: 71 : 1945 Gender: F Exam Date: 08/24/2016 11:30 Exam Location: 1 [address] Ht (in): 60 Wt (lb): 155 BSA: 1.75 BP: 110 / 62 Ordering Physician: JOSÉ MIGUEL SHANKAR MD Referring Physician: JOSÉ MIGUEL SHANKAR MD Technologist: Perfecto Betancur [facility] Room Number: 179-1 Indications: LIGHTHEADEDNESS Rhythm: Sinus Technical Quality: Fair FINDINGS Left Ventricle Normal size left ventricle. Mild concentric left ventricular hypertrophy. No obvious regional wall motion abnormalities. Normal left ventricular ejection fraction visually estimated at >55%. Abnormal relaxation filling pattern of the left ventricle for age (stage 1 diastolic dysfunction). Right Ventricle Mild right ventricular dilatation. Right Atrium Right atrium not well visualized, grossly normal. Left Atrium Normal left atrial size. Possible atrial septal aneurysm. Mitral Valve Mild mitral annular calcification. Mitral valve mildly thickened. No mitral regurgitation. Aortic Valve Trileaflet aortic valve. Diffuse mild thickening of the aortic valve cusps with mildly reduced excursion. No hemodynamically significant aortic stenosis or regurgitation. Tricuspid Valve Structurally normal tricuspid valve. Trace tricuspid regurgitation. Right ventricular systolic pressure estimated at 36 mmHg. Pulmonic Valve Pulmonic valve not well visualized, grossly normal. No pulmonic regurgitation. Pericardium No pericardial effusion. Great Vessels Normal size aortic root. Dilated inferior vena cava. CONCLUSIONS Normal size left ventricle. Mild concentric left ventricular hypertrophy. Normal left ventricular ejection fraction visually estimated at > 55%. Abnormal relaxation filling pattern of the left ventricle for age (stage 1 diastolic dysfunction). Mild right ventricular dilatation. Right atrium not well visualized, grossly normal. Normal left atrial size. Possible atrial septal aneurysm. Trace tricuspid regurgitation. Right ventricular systolic pressure estimated at 36 mmHg. Dilated inferior vena cava. Morris Yu M.D. (Electronically Signed) Final Date: 24 Aug 2016 19:20 MEASUREMENTS (Male / Female) Normal Values 2D ECHO LV Diastolic Diameter PLAX 3.9 cm 4.2 - 5.9 / 3.9 - 5.3 cm LV Systolic Diameter PLAX 2.7 cm 2.1 - 4.0 cm LV Fractional Shortening PLAX 30.8 % 25 - 46 % LV Ejection Fraction 2D Teich 59.0 % IVS Diastolic Thickness 1.0 cm LVPW Diastolic Thickness 1.2 cm LV Relative Wall Thickness 0.6 RV Internal Dim ED PLAX 3.6 cm 1.9 - 3.8 cm LVOT Diameter 1.7 cm Aortic Root Diameter 2.6 cm LA Systolic Diameter LX 3.2 cm 3.0 - 4.0 / 2.7 - 3.8 cm LA Volume 37.0 cm 18 - 58 / 22 - 52 cm Ascending Aorta Diameter 2.5 cm DOPPLER AV Peak Velocity 185.0 cm/s AV Peak Gradient 13.7 mmHg AV Mean Velocity 114.0 cm/s AV Mean Gradient 7.0 mmHg AV Velocity Time Integral 41.2 cm LVOT Peak Velocity 99.3 cm/s LVOT Peak Gradient 3.9 mmHg LVOT Mean Velocity 62.4 cm/s LVOT Mean Gradient 2.0 mmHg LVOT Velocity Time Integral 24.1 cm LVOT Stroke Volume 54.7 cm AV Area Cont Eq vti 1.3 cm AV Area Cont Eq pk 1.2 cm MV Peak Velocity 112.0 cm/s MV Peak Gradient 5.0 mmHg MV Mean Velocity 64.4 cm/s MV Mean Gradient 2.0 mmHg Mitral E Point Velocity 112.0 cm/s Mitral A Point Velocity 125.0 cm/s Mitral E to A Ratio 0.9 MV PHT Velocity 114.0 cm/s MV Deceleration [place] 284.0 cm/s MV Pressure Half Time 120.4 ms MV Area PHT 1.8 cm MV Deceleration Time 299.0 ms TR Peak Velocity 254.0 cm/s TR Peak Gradient 25.8 mmHg Right Atrial Pressure 10.0 mmHg Pulmonary Artery Systolic Pressu 35.8 mmHg Right Ventricular Systolic Press 35.8 mmHg PV Peak Velocity 97.9 cm/s PV Peak Gradient 3.8 mmHg PV Mean Velocity 66.7 cm/s PV Mean Gradient 2.0 mmHg PV Velocity Time Integral 23.2 cm LV E' Lateral Velocity 9.9 cm/s Mitral E to LV E' Lateral Ratio 11.3 LV E' Septal Velocity 8.4 cm/s Mitral E to LV E' Septal Ratio 13.4
[2016-08-24 22:00] VITALS: BP 160/80
[2016-08-25 08:00] VITALS: BP 146/80; BP 148/70
--- NOTE | 2016-08-25 08:38 | PN- Housestaff ---
ALEX WEBSTER,MCKENZIE 08/25/16 0837: Subjective Follow-up For: UTI Electrolyte abnnormality KWASI Tele-Events Since Last Visit: SR 63-87 Subjective: Patient seen and examined at bedside. Resting comfortably in bed with no new complaints other than feeling tired. She didn't get a good sleep because she kept getting waking up from noises. Denies any dyspnea, chest pain, palpitations , lightheadedness, dizziness, abdominal pain, n/v/c/d. No acute events reported overnight. Review of Systems Constitutional: Reports: see HPI. Objective Last 24 Hrs of Vital Signs/I&O Vital Signs Date Time Temp Pulse Resp B/P B/P Pulse O2 O2 Flow FiO2 Mean Ox Delivery Rate 08/25 0000 96 Nasal 2.0L Cannula 08/24 2254 99.3 68 18 160/80 08/24 2200 98.6 58 18 160/80 96 Room Air 08/24 1722 97 Nasal 2.0L Cannula 08/24 1641 98.2 58 18 108/60 94 08/24 1007 Room Air Room Air 08/24 0955 58 110/62 08/24 0955 58 110/62 Intake & Output 08/25 1600 08/25 0800 08/25 0000 Intake Total 1100 Output Total 1200 350 Balance -100 -350 Intake, IV 600 Intake, Oral 500 Output, Urine 1200 350 Physical Exam General Appearance: Alert, Cooperative, No Acute Distress Other Physical Findings: Cardiovascular: Regular Rate, Normal S1, Normal S2 Lungs: Clear to Auscultation, Normal Air Movement Abdomen: Normal Bowel Sounds, Soft, No Tenderness Neurological: Normal Speech, Normal Tone, Sensation Intact Extremities: No Edema, Normal Pulses, No Tenderness/Swelling Current Medications: Current Medications Sig/Sugar Start time Last Medication Dose Route Stop Time Status Admin Aspirin 81 MG DAILY 08/24 1000 AC 08/24 PO 0955 Atorvastatin Calcium 80 MG 1700 08/24 1700 CAN PO Atorvastatin Calcium 40 MG 1700 08/24 1700 AC 08/24 PO 1647 Carvedilol 6.25 MG BID 08/24 0015 AC 08/24 PO 2254 Ceftriaxone Sodium 1,000 MG DAILY 08/24 0300 AC 08/24 IV 0955 Heparin Sodium 5,000 UNIT Q8 08/24 0600 AC 08/25 (Porcine) SC 0624 Insulin Aspart 0 TIDAC 08/24 0800 AC 08/24 SC 1647 Lisinopril 40 MG DAILY 08/24 1000 AC 08/24 PO 0955 Magnesium Sulfate 1 GM ONCE ONE 08/24 1145 CAN Dextrose/Water 100 ML IV 08/24 1544 Oxycodone HCl 5 MG Q8P PRN 08/24 0630 AC PO Oxycodone HCl 20 MG BID 08/23 2317 AC 08/24 PO 2255 Potassium Chloride 40 MEQ Q13H 08/23 2200 DC 08/24 Dextrose/Sodium 1,000 ML IV 08/24 2359 1345 Chloride Spironolactone 50 MG DAILY 08/24 1000 AC 08/24 PO 0954 Last 24 Hrs of Lab/Karel Results Last 24 Hrs of Labs/Mics: Laboratory Tests 08/25/16 0705: Anion Gap 10, Estimated GFR > 60, BUN/Creatinine Ratio 12.5, Magnesium 1.4 L, CBC w Diff Pending, WBC Pending, RBC Pending, Hgb Pending, Hct Pending, MCV Pending, MCH Pending, RDW Pending, Plt Count Pending, MPV Pending, PUBS MCHC Pending 08/24/16 1100: Hemoglobin A1c 5.6 Assessment/Plan Assessment: This is a 71 yo lady with pmh of HTN,CLL Treated with Ibrutinib, type 2 diabetes mellitus on metformin,multiple thyroid nodule, prior history of anemia of unknown etiology, osteoarthritis, hypokalemia, 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 ED workup is remarkable for hypomagnesemia, hypokalemia, creatinine elevation, UTI and positive troponins. #Electrolyte abnormalities Hypokalemia and hypomagnesemia. No telemetry acute event seen. Replenish potassium and magnesium as needed. Will cont to trend. # UTI Symptomatic with reported increased frequency and foul smell and altered mental status with laboratory findings of leukocytosis and UA suggestive of UTI. Ucx growing GNR. Day 3 on ceftriaxone with symptomatic improvement and improving WBC count. Will continue with ceftriaxone. # Generalized weakness Progressively worsening, with AMS as reported by home health nurse. Possible 2/2 to infection and its consequence of decreased oral intake. Pt is receiving gentle hydration and was noted to have had a good PT session. # Elevated Troponin Absence of sympots of chest pain,palpitation,sob,numbness with unremrkable ecg and last year unremarkable cath makes ACS likely. Most likely etiology of elevated troponins is demand supply mismatch due to ascute illness of UTI. Cardiology consulted, reccomended decrease in statin dose,and echo in addition to current management (appreciated). Troponin trending down and patient has no chest pain currently. #KWASI - Resolved Prerenal secondary to dehydration. creatinine improving s/p hydration. Will encourage increased fluid intake and trend BEP. Problem List: 1. Hypokalemia 2. Leukocytosis 3. Hyperkalemia 4. Altered mental status 5. UTI (urinary tract infection) Pain Ratin Pain Location: 0 Pain Goal: Remain pain free Pain Plan: Mild pathway Tomorrow's Labs & Rationales: BEP/Mg: Electrolyte abnormalities MICHELLE WEBSTER,DONNIE 08/25/16 1251: Attending MD Review Statement Attending Statement Attending MD Statement: examined this patient, discuss w/resident/PA/QUALITATIVE FIELD COORDINATOR, agreed w/resident/PA/QUALITATIVE FIELD COORDINATOR, reviewed EMR data (avail), discussed with nursing, reviewed images, amended to note Attending Assessment/Plan: Patient seen and examined, feels tired. She could not get a good night sleep last night therefore she is feeling very tired. Her potassium is improved slightly and her magnesium is still low. vss on exam; aox3, nad. cv; s1, s2, rrr resp; clear abd; soft, nt, bs+ ext; no edema Laboratory Tests 08/25 0705 Chemistry Sodium (137 - 145 mmol/L) 142 Potassium (3.5 - 5.1 mmol/L) 3.7 Chloride (98 - 107 mmol/L) 100 Carbon Dioxide (22 - 30 mmol/L) 31 H Anion Gap (5 - 16) 10 BUN (7 - 17 mg/dL) 10 Creatinine (0.5 - 1.0 mg/dL) 0.8 Estimated GFR (>60 ml/min) > 60 BUN/Creatinine Ratio (7 - 25 %) 12.5 Magnesium (1.6 - 2.3 mg/dL) 1.4 L Hematology CBC w Diff NO MAN DIFF REQ WBC (4.8 - 10.8 /CUMM) 15.7 H RBC (4.20 - 5.40 /CUMM) 4.80 Hgb (12.0 - 16.0 G/DL) 13.6 Hct (37 - 47 %) 40.3 MCV (81.0 - 99.0 FL) 83.8 MCH (27.0 - 31.0 PG) 28.3 RDW (11.5 - 14.5 %) 15.6 H Plt Count (130 - 400 /CUMM) 333 MPV (7.4 - 10.4 FL) 8.7 Gran % (42.2 - 75.2 %) 59.0 Lymphocytes % (20.5 - 51.1 %) 32.4 Monocytes % (1.7 - 9.3 %) 6.3 Eosinophils % (0 - 5 %) 1.7 Basophils % (0.0 - 2.0 %) 0.6 Absolute Granulocytes (1.4 - 6.5 /CUMM) 9.3 H Absolute Lymphocytes (1.2 - 3.4 /CUMM) 5.1 H Absolute Monocytes (0.10 - 0.60 /CUMM) 1.0 H Absolute Eosinophils (0.0 - 0.7 /CUMM) 0.3 Absolute Basophils (0.0 - 0.2 /CUMM) 0.1 PUBS MCHC (33.0 - 37.0 G/DL) 33.7 A/P; 71 y/o F with pmh sig for hypertension, chronic lymphocytic leukemia treated in the past with Ibrutinib, type 2 diabetes mellitus on metformin, multiple thyroid nodule, prior history of anemia of unknown etiology, osteoarthritis, hypokalemia, 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 Please continue to replete potassium and magnesium. Creatinine has improved. Follow-up on urine culture and adjust and about except accordingly. Continue other current medications. DVT prophylaxis: Heparin subcutaneous. Patient has worked with physical therapy and they recommended home self-care. Possible discharge tomorrow.
[2016-08-25 08:54] LABS: ABSOLUTE BASOPHIL COUNT 0.1 /CUMM (0.0-0.2); MEAN CORPUSCULAR VOLUME 83.8 FL (81.0-99.0)
[2016-08-25 09:25] LABS: ABSOLUTE EOSINOPHIL COUNT 0.3 /CUMM (0.0-0.7); ABSOLUTE GRANULOCYTE CT 9.3 /CUMM (1.4-6.5); ABSOLUTE LYMPH COUNT 5.1 /CUMM (1.2-3.4); BASOPHIL % 0.6 % (0.0-2.0); EOSINOPHIL % 1.7 % (0-5); MEAN CORPUSCULAR HGB 28.3 PG (27.0-31.0); MEAN CORPUSCULAR HGB CONC 33.7 G/DL (33.0-37.0); MEAN PLATELET VOLUME 8.7 FL (7.4-10.4); PLATELET COUNT 333 /CUMM (130-400); RBC DISTRIBUTION WIDTH 15.6 % (11.5-14.5); WHITE BLOOD CELL COUNT 15.7 /CUMM (4.8-10.8)
[2016-08-25 09:36] LABS: HEMATOCRIT 40.3 % (37-47)
--- NOTE | 2016-08-25 13:52 | PN- Cardiology ---
Subjective Subjective: The patient is feeling okay. She has had no specific complaints. She has not had any chest pain or shortness of breath. There've been no obvious arrhythmias. Her potassium is 3.7 and her magnesium is still a little low at 1.4. Peak troponin was 0.17 probably due to demand ischemia as she has known normal coronaries. She is on ceftriaxone for gram-negative urinary tract infection. Objective Vital Signs and I&Os Vital Signs Date Time Temp Pulse Resp B/P B/P Pulse O2 O2 Flow FiO2 Mean Ox Delivery Rate 08/25 1051 146/80 08/25 1051 146/80 08/25 0800 94 Nasal 2.0L Cannula 08/25 0800 98.3 67 20 146/80 96 Room Air 08/25 0000 96 Nasal 2.0L Cannula 08/24 2254 99.3 68 18 160/80 05 2200 98.6 58 18 160/80 96 Room Air 08/24 1722 97 Nasal 2.0L Cannula 08/24 1641 98.2 58 18 108/60 94 Intake & Output 08/25 1600 08/25 0800 08/25 0000 08/24 1600 08/24 0800 05/ 0000 Intake Total 1100 1080 1280 Output Total 1200 350 400 450 Balance -100 -350 680 830 Intake, IV 600 600 800 Intake, Oral 500 480 480 Number 0 Bowel Movements Output, Urine 1200 350 400 450 Patient 155 lb Weight Weight Reported by Patient Measurement Method Physical Exam: She is in no distress HEENT exam is normal Chest is clear Heart is regular with no murmurs Extremities good pulses no edema Current Medications: Current Medications Sig/Sugar Start time Last Medication Dose Route Stop Time Status Admin Aspirin 81 MG DAILY 08/24 1000 AC 08/25 PO 1051 Atorvastatin Calcium 80 MG 1700 08/24 1700 CAN PO Atorvastatin Calcium 40 MG 1700 08/24 1700 AC 08/24 PO 1647 Carvedilol 6.25 MG BID 08/24 0015 AC 08/25 PO 1051 Ceftriaxone Sodium 1,000 MG DAILY 08/24 0300 AC 08/25 IV 1051 Heparin Sodium 5,000 UNIT Q8 08/24 0600 AC 08/25 (Porcine) SC 0624 Insulin Aspart 0 TIDAC 08/24 0800 AC 08/24 SC 1647 Lisinopril 40 MG DAILY 08/24 1000 AC 08/25 PO 1051 Magnesium Chloride 64 MG BID 08/25 1243 AC PO 08/26 0000 Oxycodone HCl 5 MG Q8P PRN 08/24 0630 AC PO Oxycodone HCl 20 MG BID 08/23 2317 AC 08/25 PO 1052 Potassium Chloride 20 MEQ ONCE ONE 08/25 1245 DC PO 08/25 1246 Potassium Chloride 40 MEQ Q13H 08/23 2200 DC 08/24 Dextrose/Sodium 1,000 ML IV 08/24 2359 1345 Chloride Spironolactone 50 MG DAILY 08/24 1000 AC 08/25 PO 1051 Results Last 48 Hrs of Labs/Mics: Laboratory Tests 08/25/16 0705: Anion Gap 10, Estimated GFR > 60, BUN/Creatinine Ratio 12.5, Magnesium 1.4 L, CBC w Diff NO MAN DIFF REQ, RBC 4.80, MCV 83.8, MCH 28.3, RDW 15.6 H, MPV 8.7, Gran % 59.0, Lymphocytes % 32.4, Monocytes % 6.3, Eosinophils % 1.7, Basophils % 0.6, Absolute Granulocytes 9.3 H, Absolute Lymphocytes 5.1 H, Absolute Monocytes 1.0 H, Absolute Eosinophils 0.3, Absolute Basophils 0.1, PUBS MCHC 33.7 08/24/16 1100: Hemoglobin A1c 5.6 08/24/16 0630: Troponin I Cancelled 08/24/16 0630: Anion Gap 7, Estimated GFR 44 L, BUN/Creatinine Ratio 12.5, Magnesium 1.7, Troponin I 0.16 *H, Triglycerides 106, Cholesterol 78, LDL Cholesterol, Calc 22 L, HDL Cholesterol 36 L, Cholesterol/HDL Ratio 2.2, TSH 2.630, Free T4 0.96, CBC w Diff NO MAN DIFF REQ, RBC 4.00 L, MCV 83.2, MCH 28.6, RDW 15.2 H, MPV 8.4, Gran % 49.6, Lymphocytes % 42.4, Monocytes % 5.8, Eosinophils % 1.7, Basophils % 0.5, Absolute Granulocytes 7.2 H, Absolute Lymphocytes 6.2 H, Absolute Monocytes 0.8 H, Absolute Eosinophils 0.2, Absolute Basophils 0.1, PUBS MCHC 34.4 08/24/16 0000: Urine Opiates Screen 1340.00, Methadone Screen 70, Barbiturate Screen < 60, Ur Phencyclidine Scrn < 6.00, Amphetamines Screen < 100, U Benzodiazepines Scrn > 800 H, Urine Cocaine Screen < 50, Urine Cannabis Screen > 80.00 H, Urine Color YEL, Urine Clarity HAZY H, Urine pH 6.0, Ur Specific Switchback 1.020, Urine Protein 30 H, Urine Ketones NEG, Urine Nitrite NEG, Urine Bilirubin NEG, Urine Urobilinogen 0.2, Ur Leukocyte Esterase SMALL H, Ur Microscopic SEDIMENT EXAMINED, Urine RBC RARE, Urine WBC 5-10 H, Ur Epithelial Cells MOD H, Urine Bacteria MANY H, Urine Hemoglobin TRACE-INTACT, Urine Glucose NEG 08/23/16 2330: Troponin I 0.17 *H 08/23/162055: Plasma Potassium 2.2 *L 08/23/16 1614: Anion Gap 11, Estimated GFR 40 L, BUN/Creatinine Ratio 10.0, Glucose 93, Calcium 9.3, Magnesium 1.1 L, Total Bilirubin 0.8, AST 22, ALT 35, Alkaline Phosphatase 55, Troponin I 0.11 *H, Total Protein 6.1 L, Albumin 4.0, Globulin 2.1, Albumin/Globulin Ratio 1.9, CBC w Diff MAN DIFF ORDERED, RBC 4.79, MCV 83.7 , MCH 28.0, RDW 15.4 H, MPV 7.7, Gran % 62.0, Lymphocytes % 29.1, Monocytes % 7.0, Eosinophils % 1.4, Basophils % 0.5, Absolute Granulocytes 12.6 H, Segmented Neutrophils 55, Absolute Lymphocytes 5.9 H, Lymphocytes 36, Monocytes 5, Absolute Monocytes 1.4 H, Eosinophils 3, Absolute Eosinophils 0.3, Basophils 1, Absolute Basophils 0.1, Platelet Estimate ADEQUATE, Poikilocytosis 1+, Stomatocytes RARE, Theron Cells 1+, PUBS MCHC 33.5 Recent Imaging Studies: CONCLUSIONS Normal size left ventricle. Mild concentric left ventricular hypertrophy. Normal left ventricular ejection fraction visually estimated at > 55%. Abnormal relaxation filling pattern of the left ventricle for age (stage 1 diastolic dysfunction). Mild right ventricular dilatation. Right atrium not well visualized, grossly normal. Normal left atrial size. Possible atrial septal aneurysm. Trace tricuspid regurgitation. Right ventricular systolic pressure estimated at 36 mmHg. Dilated inferior vena cava. Morris Yu M.D. (Electronically Signed) Final Date: 24 Aug 2016 19:20 Assessment/Plan Assessment/Plan The patient is stable from a cardiac standpoint. Her potassium and magnesium are still not in the ideal range and should continue to be supplemented. There is no evidence for an acute coronary event here and she does have previously known normal coronary arteries. I would recommend keeping her on the monitor until her electrolytes are ideal and probably telemetry can then be discontinued. Her urinary tract infection should be continued to be treated. Continue telemetry? Yes
[2016-08-25 16:23] VITALS: BP 138/76
[2016-08-25 23:00] VITALS: BP 142/86
[2016-08-26 08:04] VITALS: BP 142/84
--- NOTE | 2016-08-26 09:14 | PN- Housestaff ---
CARMEN WEBSTER,SANIA 08/26/16 0914: Subjective Follow-up For: UTI ELECTROLYTE IMBALANCE Subjective: Pt is seen and examined at bedside. She reports that she feels tired and does not want to be discharged today. She does deny sob,chest pain/palpitation,fever/ chills,nausea,abdominal pain or dysuria. No acute o/n event reported by nursing staff. Review of Systems Constitutional: Reports: no symptoms. Objective Last 24 Hrs of Vital Signs/I&O Vital Signs Date Time Temp Pulse Resp B/P B/P Pulse O2 O2 Flow FiO2 Mean Ox Delivery Rate 08/26 2300 98.3 64 16 132/80 94 Room Air 08/26 1756 98.9 78 18 130/76 96 Room Air 08/26 0915 140/70 08/26 0915 140/70 08/26 0804 98.4 68 18 142/84 95 Room Air 08/26 0529 98.4 Intake & Output 08/27 0800 08/27 0000 08/26 1600 Intake Total 650 620 Output Total 1400 450 Balance -750 170 Intake, IV 220 Intake, Oral 650 400 Output, Urine 1400 450 Physical Exam General Appearance: Alert, Oriented X3, Cooperative, appears tired Lungs: Clear to Auscultation, Normal Air Movement Abdomen: Normal Bowel Sounds, Soft, No Tenderness, no CVA Neurological: Normal Speech, Strength at 5/5 X4 Ext, Normal Tone Assessment/Plan Assessment: This is a 71 yo lady with pmh of HTN,CLL Treated with Ibrutinib, type 2 diabetes mellitus on metformin,multiple thyroid nodule, prior history of anemia of unknown etiology, osteoarthritis, hypokalemia, 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 ED workup is remarkable for hypomagnesemia, hypokalemia, creatinine elevation, UTI and positive troponins. #Electrolyte abnormalities Hypokalemia and hypomagnesemia. No telemetry acute event seen from electrolyte imbalance. concomittant hypomagnesia and Hypokalemia is seen frequently seen. The hypokalemia in these cases is normally refractory to replenishment without adequate correction of magnesium (mechanistically there is suggestion magnesium exacerbates hypokalemia by increasing distal secretion of K+). Regarding the hypomagnesemia, it is possible that the patient omeprazole might be the cause ( Chronic PPI use has been reported to be a cause of hypomagnesemia[[place] FDA safety commission 06/14/2010). Will therefore d/c omeprazole and replace with an H2 antagonist).Will continue to Replenish potassium and magnesium as needed. Will cont to trend. # UTI Symptomatic with reported increased frequency and foul smell and altered mental status with laboratory findings of leukocytosis and UA suggestive of UTI. Ucx growing GNR. Will switch to cephalexin po today. # Generalized weakness Progressively worsening, with AMS as reported by home health nurse. Possible 2/2 to infection and its consequence of decreased oral intake. Pt is noted to have had a good PT session. . #KWASI - Resolved Prerenal secondary to dehydration. creatinine improving s/p hydration. Will encourage increased fluid intake and trend BEP. Problem List: 1. UTI (urinary tract infection) 2. Hypokalemia Pain Ratin Pain Location: NONE Pain Goal: Remain pain free Pain Plan: PER PAIN PATHWAY Tomorrow's Labs & Rationales: BEP-PERSISTENT HYPOKALEMIA Mag: Hypomagnesemia CBC:Assesing ABx effect MICHELLE WEBSTER,DONNIE 08/26/16 1222: Attending MD Review Statement Attending Statement Attending MD Statement: examined this patient, discuss w/resident/PA/CENTER LEAD CONSULTANT, agreed w/resident/PA/CENTER LEAD CONSULTANT, reviewed EMR data (avail), discussed with nursing, discussed with case mgmt, amended to note Attending Assessment/Plan: Patient seen and examined, still feeling tired. Her electrolytes are still low. She has hypokalemia as well as hypomagnesemia. She refused Slow-Mag yesterday. vss. on exam; aox3, nad. cv; s1,s2, rrr resp;clear abd; soft,nt, bs+ ext; no edema. Laboratory Tests 08/26 0700 Chemistry Sodium (137 - 145 mmol/L) 140 Potassium (3.5 - 5.1 mmol/L) 3.2 L Chloride (98 - 107 mmol/L) 96 L Carbon Dioxide (22 - 30 mmol/L) 35 H Anion Gap (5 - 16) 9 BUN (7 - 17 mg/dL) 6 L Creatinine (0.5 - 1.0 mg/dL) 0.8 Estimated GFR (>60 ml/min) > 60 BUN/Creatinine Ratio (7 - 25 %) 7.5 Magnesium (1.6 - 2.3 mg/dL) 1.3 L A/P; 71 y/o F with pmh sig for hypertension, chronic lymphocytic leukemia treated in the past with Ibrutinib, type 2 diabetes mellitus on metformin, multiple thyroid nodule, prior history of anemia of unknown etiology, osteoarthritis, hypokalemia, 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 Please replete her potassium and magnesium aggressively. Please replete magnesium IV. Please change antibiotics to oral Keflex. She will need 14 day course of antibiotics as there is evidence of leukocytosis which represents upper urinary tract infection. Continue the cardiac medications. Please encourage ambulation with nursing. Dvt px; Hep sq.
[2016-08-26 17:56] VITALS: BP 130/76
[2016-08-26 23:00] VITALS: BP 132/80
[2016-08-27 07:51] VITALS: BP 182/98
--- NOTE | 2016-08-27 08:19 | PN- Housestaff ---
CARMEN WEBSTER,[facility] 08/27/16 0818: Subjective Follow-up For: electrolytes derangenent UTI Subjective: SEEN and examined at bedside. Does not endorse any acute complaints including increased shortness of breath, chest pain, palpitation, fever, chills, nausea, vomiting, abdominal pain or dysuria. No acute overnight event reported by nursing staff Review of Systems Constitutional: Reports: no symptoms. Objective Last 24 Hrs of Vital Signs/I&O .. 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 ED workup is remarkable for hypomagnesemia, hypokalemia, creatinine elevation, UTI and positive troponins. #Electrolyte abnormalities Hypokalemia and hypomagnesemia. No telemetry acute event seen from electrolyte imbalance. concomittant hypomagnesia and Hypokalemia is seen frequently seen. The hypokalemia in these cases is normally refractory to replenishment without adequate correction of magnesium (mechanistically there is suggestion magnesium exacerbates hypokalemia by increasing distal secretion of K+). Regarding the hypomagnesemia, it is possible that the patient omeprazole might be the cause ( Chronic PPI use has been reported to be a cause of hypomagnesemia[[place] FDA safety commission 06/14/2010). Will therefore d/c omeprazole and replace with an H2 antagonist). Magnesium and potassium was replenished before patient discharge. Patient was giveN a prescription for magnesium oxide and informed to continue potassium regular prescription. He was also given detailed instructions to get hER BEP and magnesium levels checked on Saturday with results CC to her primary care physician. I personally call a primary care physician her primary care office Dr. Eduardo Gotti and informed them about patient's continuous electrolyte abnormalities and the need for closer follow-up, they stated that they will closely monitor and follow-up with the patient. # UTI Symptomatic with reported increased frequency and foul smell and altered mental status with laboratory findings of leukocytosis and UA suggestive of UTI. Ucx growing GNR. She'll be discharged with cephalexin home therapy dose to complete a total of 14 day antibiotic treatment course. . #KWASI - Resolved Prerenal secondary to dehydration. creatinine improving s/p hydration. Will encourage increased fluid intake and trend BEP. Problem List: 1. Hypomagnesemia 2. UTI (urinary tract infection) 3. Hypokalemia Pain Ratin Pain Location: NONE Pain Goal: Remain pain free Pain Plan: PER PAIN PATHWAY Tomorrow's Labs & Rationales: NONE-DISCHARGE DONNIE MARTINEZ MD 08/27/16 1201: Attending MD Review Statement Attending Statement Attending MD Statement: examined this patient, discuss w/resident/PA/WELDING SUPERVISOR, agreed w/resident/PA/WELDING SUPERVISOR, reviewed EMR data (avail), discussed with nursing, discussed with case mgmt, amended to note Attending Assessment/Plan: Patient seen and examined, feels overall better. She wants to go home today. She still feeling tired but she thinks that she is laying in bed that's what making her tired. Her electrolytes showed that her potassium is slightly better but magnesium still on the low side. We will give another 2 g of magnesium and will discharge her on oral magnesium and potassium replacement. I did had a lengthy discussion with the patient about taking her medications as she was refusing oral magnesium while in the hospital. Patient was encouraged to keep herself well hydrated and take all of her medications as directed. We will repeat her BP and magnesium level and of this week and we will send those results to her primary care doctor. Off note he has also discontinued her PPI and we have replaced it with Pepcid. This isn't as PPI can interfere with absorption of MAg.
[2016-08-27] MEDS ORDERED: CEPHALEXIN500 M3 PO ×2 (08:42→13:31)
[2016-08-27] MEDS ORDERED: ATORVASTATIN CA40 M1 PO ×2 (08:42→13:33)
[2016-08-27] MEDS ORDERED: PEPCID20 M1 PO ×2 (08:44→11:25)
[2016-08-27 08:47] LABS: ABSOLUTE BASOPHIL COUNT 0.1 /CUMM (0.0-0.2); ABSOLUTE EOSINOPHIL COUNT 0.3 /CUMM (0.0-0.7); ABSOLUTE GRANULOCYTE CT 7.4 /CUMM (1.4-6.5); ABSOLUTE MONOCYTE COUNT 0.9 /CUMM (0.10-0.60); BASOPHIL % 0.7 % (0.0-2.0); EOSINOPHIL % 2.1 % (0-5); GRANULOCYTE % 53.9 % (42.2-75.2); HEMATOCRIT 39.3 % (37-47); MEAN CORPUSCULAR HGB 28.2 PG (27.0-31.0); MEAN CORPUSCULAR HGB CONC 34.1 G/DL (33.0-37.0); MEAN CORPUSCULAR VOLUME 82.6 FL (81.0-99.0); PLATELET COUNT 363 /CUMM (130-400); RBC DISTRIBUTION WIDTH 16.1 % (11.5-14.5); RED BLOOD CELL CT 4.76 /CUMM (4.20-5.40); WHITE BLOOD CELL COUNT 13.8 /CUMM (4.8-10.8)
--- NOTE | 2016-08-27 08:58 | Patient Discharge Instructions ---
Discharge Instructions General Discharge Information You were seen/treated for: UTI Low potassium and Magnesium Special Instructions: Please complete the remaining course of antibiotics (Cephalexin) Please continue taking your potassium medication Please follow up with your primary care within 1 week Please get your lab work done on 08/31 (for magnesium and Potassium) Acute Coronary Syndrome Inclusion Criteria At DC or during hospital stay patient has or had the following: ACS DIAGNOSIS No Discharge Core Measures Meds if any: Prescribed or Continued at Discharge Meds if any: NOT Prescribed or Continued at Discharge Congestive Heart Failure Inclusion Criteria At DC or during hospital stay patient has or had the following: CHF DIAGNOSIS No Discharge Core Measures Meds if any: Prescribed or Continued at Discharge Meds if any: NOT Prescribed or Continued at Discharge Cerebrovascular accident Inclusion Criteria At DC or during hospital stay patient has or had the following: CVA/TIA Diagnosis No Discharge Core Measures Meds if any: Prescribed or Continued at Discharge Meds if any: NOT Prescribed or Continued at Discharge Venous thromboembolism Inclusion Criteria VTE Diagnosis No VTE Type NONE VTE Confirmed by (Test) NONE Discharge Core Measures - Per Current guidelines, there needs to be overlap - treatment for the first 5 days of Warfarin therapy. - If discharged on Warfarin prior to 5 days of - overlap therapy, the patient will need to be - assessed for post discharge needs including - *Post discharge parental anticoagulation - *Warfarin and/or parental anticoagulation education - *Follow up date to check INR post discharge At least 5 days overlap therapy as Inpatient No Meds if any: Prescribed or Continued at Discharge Note: Overlap Therapy is Warfarin and Anticoagulant Meds if any: NOT Prescribed or Continued at Discharge
[2016-08-27 09:28] VITALS: BP 180/74
[2016-08-27] MEDS ORDERED: MAGOX 400400 MG PO (11:25)
--- NOTE | 2016-08-31 13:43 | Discharge Summary ---
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 Vitals at presentation, Tamox of 99.0/pulse of 68, RR of 20, blood pressure 60 up to 70 diastolic and 109 up to 116 systolic, 95% on 2 L. Physical Exam General Appearance Alert, Oriented X3, Cooperative, No Acute Distress Skin No Rashes, No Breakdown, puffy face Skin Temp/Moisture Exam: Warm/Dry Sepsis Skin Exam (color): Normal for Ethnicity HEENT Atraumatic, PERRLA, EOMI Cardiovascular Normal S1, Normal S2, No Murmurs Lungs Clear to Auscultation, Normal Air Movement Abdomen Normal Bowel Sounds, Soft, No Tenderness Neurological Strength at 5/5 X4 Ext, Sensation Intact Extremities No Clubbing, No Cyanosis, edema + Vascular Normal Pulses Laboratory Tests 08/24/16 0000: Urine Opiates Screen 1340.00, Methadone Screen 70, Barbiturate Screen < 60, Ur Phencyclidine Scrn < 6.00, Amphetamines Screen < 100, U Benzodiazepines Scrn > 800 H, Urine Cocaine Screen < 50, Urine Cannabis Screen > 80.00 H, Urine Color YEL, Urine Clarity HAZY H, Urine pH 6.0, Ur Specific [place] 1.020, Urine Protein 30 H, Urine Ketones NEG, Urine Nitrite NEG, Urine Bilirubin NEG, Urine Urobilinogen 0.2, Ur Leukocyte Esterase SMALL H, Ur Microscopic SEDIMENT EXAMINED, Urine RBC RARE, Urine WBC 5-10 H, Ur Epithelial Cells MOD H, Urine Bacteria MANY H, Urine Hemoglobin TRACE-INTACT, Urine Glucose NEG 08/23/16 2330: Troponin I 0.17 *H 08/23/16 2056: Plasma Potassium 2.2 *L 08/23/16 1614: Anion Gap 11, Estimated GFR 40 L, BUN/Creatinine Ratio 10.0, Glucose 93, Calcium 9.3, Magnesium 1.1 L, Total Bilirubin 0.8, AST 22, ALT 35, Alkaline Phosphatase 55, Troponin I 0.11 *H, Total Protein 6.1 L, Albumin 4.0, Globulin 2.1, Albumin/Globulin Ratio 1.9, CBC w Diff MAN DIFF ORDERED, RBC 4.79, MCV 83.7 , MCH 28.0, RDW 15.4 H, MPV 7.7, Gran % 62.0, Lymphocytes % 29.1, Monocytes % 7.0, Eosinophils % 1.4, Basophils % 0.5, Absolute Granulocytes 12.6 H, Segmented Neutrophils 55, Absolute Lymphocytes 5.9 H, Lymphocytes 36, Monocytes 5, Absolute Monocytes 1.4 H, Eosinophils 3, Absolute Eosinophils 0.3, Basophils 1, Absolute Basophils 0.1, Platelet Estimate ADEQUATE, Poikilocytosis 1+, Stomatocytes RARE, Theron Cells 1+, PUBS MCHC 33.5. PT was then admitted to telemtery floor and the following issues were addressed: 1. Hypokalemia with underlying hypomagnesemia. Pateint was on on home Potasium 20 meq supplement due to furosemide use. Her recent gastroeneteritis might have worsened her condition. During hospital stay, K+ was replenished. Her Hypomagnesemia also worsened and made potassium replenishment more refactory, Magnesium was also replenished, her PPI stopped (chronic use of PPI associated with hypomagnesemia). Patient was also discharged home with a short supply of magnesium oxide po 400 mg bid and a prescrption to check her Mag and K+ with results being CCd to her PCP. Medical team also contacted PCP and informed him about patient's electrolyte imbalances and the need for close f/u. 2. Lethargy, AMS in the setting of opioid use, KWASI and UTI. Urine culture was posisitve for abrams sensitive and patient was started on Ceftriaxone IV. Opiods were initially held and then judiciously restarted. 3. Elevated troponin likely demand ischemia. Serial trops and EKG were unremarkable for any acute ischemic changes. No acute telemetry event was noted during hospital stay. 4.UTI with abrams sensitive E.coli isolated. Ceftriaxone IV was started, wbc was trended and showed a downward trend.Transtioned to cephalexin upon discharge to complete a total of 14 day ABX course. 5.KWASI. 2/2 to dehydration, resolved after adequate hydration. Encouraged patient to maintain adequate hydration while at home. 6. CLL. No acute worsening during hospital stay. Oncology was also consulted and did not offer any changes to plan per medical team. Allergies: Coded Allergies: methotrexate (PT CAN'T REMEMBER REACTION 07/19/16) erythromycin base (PT STATES SHE GETS SHAKY 07/19/16) Disposition Summary Disposition Principal Diagnosis: UTI Additional Diagnosis: Electrolyte imbalances (Hypokalemia and Hypomagnesemia) KWASI Leukocytosis Discharge Disposition: home or self care Discharge Instructions General Discharge Information Code Status: Full Code Patient's Diet: regular Patient's Activity: As tolerated Follow-Up Instructions/Appts: F/U with PCP within 1 week BEP and magnesium lab with f/u with PCP if abnormal Medications at Discharge Discharge Medications: Stop taking the following medications: Omeprazole (Omeprazole) 40 MG CAPSULE.DR ORAL DAILY Atorvastatin Calcium (Atorvastatin Calcium) 80 MG TABLET ORAL DAILY Dexlansoprazole (Dexilant) 60 MG CAP.BP ORAL DAILY Continue taking these medications: Furosemide (Furosemide) 20 MG TABLET 1 Tablet ORAL DAILY Potassium Chloride (K-Tab ER) 20 MEQ TABLET.ER 1 Tablet ORAL DAILY Comments: GIVEN 08/27/16 @ 1130 Oxycodone HCl (Oxycodone HCl) 5 MG TABLET 1 Tablet ORAL EVERY 8 HOURS Oxycodone HCl (Oxycontin) 20 MG TAB.ER.12H 1 Tablet ORAL TWICE DAILY Comments: GIVEN 08/27/16 @ 1215PM Celecoxib (Celebrex) 200 MG CAPSULE 1 Capsule ORAL DAILY Spironolactone (Aldactone) 50 MG TABLET 1 Tablet ORAL DAILY Comments: GIVEN 08/27/16 @ 0930 Carvedilol (Coreg) 6.25 MG TABLET 1 Tablet ORAL TWICE DAILY Valsartan (Diovan) 160 MG TABLET 1 Tablet ORAL DAILY Amlodipine Besylate (Norvasc) 5 MG TABLET 1 Tablet ORAL DAILY Lisinopril (Lisinopril) 40 MG TABLET 1 Tablet ORAL DAILY Comments: GIVEN 08/27/16 @ 0930 Pregabalin (Lyrica) 50 MG CAPSULE 1 Capsule ORAL DAILY Alprazolam (Xanax) 0.25 MG TABLET 1 Tablet ORAL 2 x Daily as needed as needed for ANXIETY Duloxetine HCl (Cymbalta) 60 MG CAPSULE.DR 1 Capsule ORAL DAILY Aspirin (Aspirin*) 81 MG TAB.CHEW 1 Tablet ORAL DAILY Comments: GIVEN 08/27/16 @ 0930 Mifepristone (Korlym) 300 MG TABLET 1 Tablet ORAL DAILY Qty = 30 Metformin HCl (Metformin HCl) 500 MG TABLET 1 Tablet ORAL TWICE DAILY Qty = 60 Start taking the following new medications: Famotidine (Pepcid) 20 MG TABLET 1 Tablet ORAL TWICE DAILY as needed for ACID REFLUX Qty = 60 No Refills Comments: GIVEN PRILOSEC 08/27/16 @ 0530 Cephalexin (Cephalexin) 500 MG CAPSULE 500 Milligram ORAL EVERY SIX HOURS Qty = 38 No Refills Comments: GIVEN 08/27/16 @ 1217 Atorvastatin Calcium (Atorvastatin Calcium) 40 MG TABLET 40 Milligram ORAL DAILY Qty = 30 No Refills Comments: GIVEN 08/26/16 4:15PM Magnesium Oxide (Magox 400) 400 MG TABLET 1 Tablet ORAL TWICE DAILY Qty = 30 No Refills Comments: GIVEN 08/27/16 @ 1210 Copies To: CASSIE WEBSTER,LINDA Suarez
== END 2016-08-27 13:38 | disposition home health service (06) | DRG 690 ==
LOC: ERH 14:06 → ERHI 21:24 → 1NO 21:24 → ENRESERV 22:07 → 1NO 23:06 → ENPENDDIS 08-27 11:06 → 1NO 08-27 13:38
PROVIDERS: Internal Medicine; Student in an Organized Health Care Education/Training Program; ADMIT Student in an Organized Health Care Education/Training Program
DX: N39.0 Urinary tract infection, site not specified (principal); N17.9 Acute kidney failure, unspecified; C91.10 Chronic lymphocytic leukemia of B-cell type not having achieved remission; I24.8 Other forms of acute ischemic heart disease; E24.9 Cushing's syndrome, unspecified; E83.42 Hypomagnesemia; E11.9 Type 2 diabetes mellitus without complications; I10 Essential (primary) hypertension; Z79.84 Long term (current) use of oral hypoglycemic drugs; E04.2 Nontoxic multinodular goiter; I25.2 Old myocardial infarction; F17.210 Nicotine dependence, cigarettes, uncomplicated; E87.6 Hypokalemia; E78.5 Hyperlipidemia, unspecified
CPT/HCPCS: 1NSP; 36415; 73502-RT; 80307; 81001; 82436; 87040; 87045; 87070; 87086; 93005; 93010; 93306; 97116-GO; 97161-GP; 97530-GO; J0696; J1644; J2405; J3490; J7042

== ENCOUNTER 2017-06-26 18:10 | Inpatient (IN) | payer OTHER, MEDICARE ==
[~2017-06-26] VITALS: Ht 152.4 cm; Wt 72.8 kg
[~2017-06-26 18:10] MED LIST changes: +ATORVASTATIN CA40 M1 PO; +CEPHALEXIN500 M3 PO; +KORLYM300 MG PO; +MAGOX 400400 MG PO; +METFORMIN HCL500 M3 PO; +PEPCID20 M1 PO
--- NOTE | 2017-06-26 18:45 | ED AMS/SEIZURE/WEAK/DIZZY ---
History of Present Illness General Chief Complaint: General Adult Stated Complaint: BIBA FOR VOMITING,AMS, PINPOINT PUPILS Source: patient, family, old records Exam Limitations: not alert/orientated Vital Signs & Intake/Output Vital Signs & Intake/Output Vital Signs Date Time Temp Pulse Resp B/P B/P Pulse O2 O2 Flow FiO2 Mean Ox Delivery Rate 06/26 2130 99.0 74 18 148/76 95 Nasal 2.0L Cannula 06/26 1937 103.0 06/26 1936 103.0 18 06/26 1928 95 Nasal 2.0L Cannula 06/26 184 103.8 06/26 1830 103.8 06/26 1816 92 Nasal 2.0L Cannula 06/26 1813 102.9 96 20 177/88 87 Room Air Allergies Coded Allergies: methotrexate (PT CAN'T REMEMBER REACTION 07/19/16) erythromycin base (PT STATES SHE GETS SHAKY 07/19/16) Triage Nurses Notes Reviewed? yes Onset: Gradual Duration: hour(s): Timing: single episode today Injury Environment: home Severity: moderate HPI: 72yo female with hx of hypertension, hyperlipidemia, type 2 diabetes, Reilly's disease, CVA and CLL BIBA for AMS. HPI obtained from patient's due to patient's AMS. Patient's states that patient has not seen her pain management doctor this week and has been giving her his doses of pain meds including morphine and oxycodone. Patient has been acting normally this past week however today has been complaining of hip pain. gave patient a dose of this medication around 5 PM tonight. Patient had episode of vomiting and shortly became difficult to arouse. called for an ambulance. states that she was responding verbally at that time however very altered. states that patient had UTI approximately 1 week ago however this was treated with oral antibiotics, patient's symptoms resolved. states that patient has not complained of any chest pain or abdominal pain, no cough. (Nancy WHITE,Khushboo Nelson) Reconcile Medications Alprazolam (Xanax) 0.25 MG TABLET 1 TAB PO QPM PRN ANXIETY (Reported) Aspirin (Aspirin*) 81 MG TAB.CHEW 1 TAB PO DAILY HEART (Reported) Atorvastatin Calcium 40 MG TABLET 40 MG PO DAILY HYPERLIPIDEMIA Celecoxib (Celebrex) 200 MG CAPSULE 1 CAP PO DAILY PAIN (Reported) Duloxetine HCl (Cymbalta) 60 MG CAPSULE.DR 1 CAP PO DAILY UNKNOWN (Reported) Famotidine (Pepcid) 20 MG TABLET 1 TAB PO BID PRN ACID REFLUX Furosemide 20 MG TABLET 1 TAB PO DAILY EDEMA (Reported) Lisinopril 40 MG TABLET 1 TAB PO DAILY HEART (Reported) Magnesium Oxide (Magox 400) 400 MG TABLET 1 TAB PO BID LOW MAGNESIUM Mifepristone (Korlym) 300 MG TABLET 1 TAB PO DAILY ENDO (Reported) Oxycodone HCl 5 MG TABLET 1 TAB PO Q4H PAIN (Reported) Oxycodone HCl (Oxycontin) (Unknown Strength) TAB.ER.12H (Unknown Dose) PO AD PAIN (Reported) Pregabalin (Lyrica) 50 MG CAPSULE 1 CAP PO DAILY PAIN (Reported) Spironolactone (Aldactone) 50 MG TABLET 1 TAB PO DAILY HYPOKALEMIA (Reported) Valsartan (Diovan) 160 MG TABLET 1 TAB PO DAILY HEART (Reported) (Vitaliy Perez DO) Past History Travel History Traveled to [place] past 21 day No Medical History Any Pertinent Medical History? see below for history Neurological: STROKE EENT: NONE Cardiovascular: hypertension, hyperlipidemia, myocardial infarction, ?LV HYPERTROPHY Respiratory: NONE Gastrointestinal: NONE Hepatic: NONE Renal: NONE Musculoskeletal: osteoarthritis Psychiatric: NONE Endocrine: diabetes, THYROID NODULE Blood Disorders: NONE Cancer(s): CLL OPERATIONS PROCESSOR/Reproductive: NONE Other Medical Hx: HX OF ANEMIA, History of MRSA: No History of VRE: No History of CDIFF: No Surgical History Surgical History: cholecystectomy Psychosocial History Who do you live with Spouse Services at Home Nursing, Physical Therapy What is your primary language Sami Family History Hx Contributory? No (Khushboo Trivedi) Review of Systems Review of Systems Constitutional: Reports: see HPI. EENTM: Reports: no symptoms. Respiratory: Reports: no symptoms. Cardiovascular: Reports: no symptoms. GI: Reports: see HPI. Genitourinary: Reports: see HPI. Musculoskeletal: Reports: no symptoms. Skin: Reports: no symptoms. Neurological/Psychological: Reports: see HPI. Hematologic/Endocrine: Reports: no symptoms. Immunologic/Allergic: Reports: no symptoms. All Other Systems: Reviewed and Negative (Khushboo Trivedi) Physical Exam Physical Exam General Appearance: well developed/nourished, lethargic Head: atraumatic, normal appearance Eyes: Bilateral: normal appearance, PERRL, EOMI (pupils 2mm OU). Ears, Nose, Throat: hearing grossly normal, dry mucus membranes Neck: normal inspection, supple, full range of motion Respiratory: normal breath sounds, no respiratory distress, lungs clear Cardiovascular: regular rate/rhythm Peripheral Pulses: 2+ radial (R), 2+ radial (L), 2+ dorsalis pedis (R), 2+ dorsalis pedis (L) Gastrointestinal: normal bowel sounds, soft, non-tender, no organomegaly Back: normal inspection Neurologic/Psych: patient responds to verbal stimuli, oriented to self and place at times, no gross focal neurologic deficit however neuro exam is limited d/t patient's AMS, patient cannot follow commands Skin: intact, normal color, hot/dry Core Measures ACS in differential dx? Yes CVA/TIA Diagnosis No Sepsis Present: Yes Sepsis Focused Exam Completed? Yes (Khushboo Trivedi) ED Sepsis Exam Date of Focused Sepsis Exam: 06/26/17 Time of Focused Sepsis Exam: 1829 Sepsis Cardiac Exam: Regular Rate/Rhythm Sepsis Resp Exam: CTA Sepsis Cap Refill Exam: <2 Sec Sepsis Peripheral Pulse Exam: Normal Sepsis Peripheral Pulse Location: Dorsalis Pedis Sepsis Skin Color Exam: Normal for Ethnicity Skin Temp/Moisture Exam: Hot/Dry (Khushboo Trivedi) Progress Differential Diagnosis: arrythmia, anemia, CVA/stroke, dehydration, drug intoxication, electrolyte imbalance, hypoglycemia, hypoxia, intracranial Hem., intracranial mass/tumor, sepsis, UTI/pyelo Plan of Care: Orders Procedure Date/time Status CT CHEST WO IV CONTRAST 06/26 2226 Active ARTERIAL BLOOD GAS (GEN) 06/[address] HEAD WO IV CONTRAST 06/26 2155 Active Add-on Test (ER Only) 06/26 2149 Active RAPID VIRAL INFLUENZA A 06/26 214 Active LACTIC ACID 06/26 213 Active PARTIAL THROMBOPLASTIN TIME 06/26 1900 Complete PROTHROMBIN TIME 06/26 1900 Complete CULTURE,URINE 06/26 1842 Active BLOOD CULTURE 06/26 1832 Active URINE DRUG SCREEN FOR ER ONLY 06/26 1832 Complete URINALYSIS 06/26 1832 Complete TROPONIN LEVEL 06/26 1832 Complete LACTIC ACID 06/26 1832 Complete COMPREHENSIVE METABOLIC PANEL 06/26 1832 Complete CBC WITHOUT DIFFERENTIAL 06/26 183 Complete EKG 06/26 183 Active Laboratory Tests 06/26/17 1900: Anion Gap 8, Estimated GFR > 60, BUN/Creatinine Ratio 18.8, Glucose 89, Lactic Acid 1.0, Calcium 8.8, Total Bilirubin 1.6 H, AST 22, ALT 20, Alkaline Phosphatase 65, Troponin I 0.02, Total Protein 6.1 L, Albumin 3.9, Globulin 2.2 , Albumin/Globulin Ratio 1.8, PT 11.4, INR 1.05, APTT 28, CBC w Diff NO MAN DIFF REQ, RBC 5.15, MCV 84.9, MCH 29.1, MCHC 34.3, RDW 15.8 H, MPV 7.3 L, Gran % 84.4 H, Lymphocytes % 10.5 L, Monocytes % 4.6, Eosinophils % 0.3, Basophils % 0.2, Absolute Granulocytes 14.7 H, Absolute Lymphocytes 1.8, Absolute Monocytes 0.8 H, Absolute Eosinophils 0.1, Absolute Basophils 0 06/26/171854: Urine Opiates Screen > 4000.00 H, Methadone Screen 52, Barbiturate Screen < 60, Ur Phencyclidine Scrn < 6.00, Amphetamines Screen < 100, U Benzodiazepines Scrn < 85, Urine Cocaine Screen < 50, Urine Cannabis Screen > 80.00 H, Urine Color YEL, Urine Clarity CLEAR, Urine pH 7.5, Ur Specific [place] 1.020, Urine Protein 100 H, Urine Ketones NEG, Urine Nitrite NEG, Urine Bilirubin NEG, Urine Urobilinogen 1.0, Ur Leukocyte Esterase TRACE H, Ur Microscopic SEDIMENT EXAMINED, Urine RBC 5-10 H, Urine WBC 3-5 H, Ur Epithelial Cells FEW, Urine Bacteria MOD H, Urine Mucus RARE, Urine Hemoglobin MOD H, Urine Glucose NEG Microbiology 06/26 2148 NASOPHARYN: Influenza Virus A & B Rapid Smear - ORD 06/26 2049 BLOOD: Blood Culture - RECD 06/26 2029 BLOOD: Blood Culture - RECD 06/26 1854 URINE ROUT: Urine Culture - RECD Patient's fever has improved following IV medications. Patient with SIRS criteria, altered mental status. Hypokalemia, replaced with oral K. chest x- rays limited however no evidence for consolidation. Patient's urine shows possible mild UTI. Urine drug screen shows elevated opiates, patient has been taking morphine today, patient did not respond to Narcan, and is likely related to sepsis. Patient started on broad-spectrum antibiotics and IV fluids. The patient was signed out to Dr. Rascon pending CT scan and further sepsis workup. Diagnostic Imaging: Viewed by Me: Radiology Read. Discussed w/RAD: Radiology Read. Radiology Impression: PATIENT: CHELITA ANDERSON PRESENT AGE: 72 PATIENT ACCOUNT NO: [id number] : 46 LOCATION: [facility] ORDERING PHYSICIAN: Khushboo WHITE SERVICE DATE: 06/26/17 EXAM TYPE: RAD - XRY-CHEST XRAY, TWO VIEWS EXAMINATION: XR CHEST CLINICAL INFORMATION : Fever and altered mental status. Rule out pneumonia. COMPARISON: Chest x-ray from 08/23/2016. TECHNIQUE: 2 views of the chest were obtained. FINDINGS: There are low lung volumes with hypoventilatory changes. Left basilar subsegmental atelectasis is noted. The cardiomediastinal silhouette is normal. No pleural effusions are seen. No acute osseous abnormality is evident. IMPRESSION: No consolidative airspace disease. Low lung volumes with hypoventilatory changes which somewhat limits assessment. DICTATED BY: Chauncey Rivas MD DATE/TIME DICTATED:06/26/171924 BACKEND TESTER:KYLE DATE/TIME TRANSCRIBED:1924 CONFIDENTIAL, DO NOT COPY WITHOUT APPROPRIATE AUTHORIZATION. < Electronically signed in Other Vendor System> SIGNED BY: Chauncey Rivas MD 06/26/171928 Initial ED EKG: SINUS RHYTHM @98BPM, NONSPECIFIC ST CHANGES Prior EKG: unchanged Hand-Off Endorsed To: Vitaliy Perez DO Endorsed Time: 1999 Pending: CT (Khushboo Trivedi) Departure Departure Disposition: STILL A PATIENT Condition: Stable Clinical Impression Primary Impression: Sepsis Secondary Impressions: Hypokalemia Referrals: Eduardo Rangel MD (PCP/Family) Departure Forms: Customer Survey General Discharge Information (Khushboo Trivedi) Admission Note Spoke With: Donald Hurd MD Documentation of Exam: Documentation of any treatments & extenuating circumstances including Concerns Regarding Discharge (functional status, medication knowledge or non-compliance, living conditions, etc.) that warrant an admission rather than observation: [ Patient needs admission for IV antibiotics, IV fluids, telemetry monitoring and IV potassium] PA/AIRCRAFT INSPECTOR Co-Sign Statement Statement: ED Attending supervision documentation- [X] I saw and evaluated the patient. I have also reviewed all the pertinent lab results and diagnostic results. I agree with the findings and the plan of care as documented in the PA's/AIRCRAFT INSPECTOR's documentation. [] I have reviewed the ED Record and agree with the PA's/AIRCRAFT INSPECTOR's documentation. [] Additions or exceptions (if any) to the PAs/AIRCRAFT INSPECTOR's note and plan are summarized below: [] (Vitaliy Perez DO) (Vitaliy Perez DO)
[2017-06-26] MEDS ORDERED: LIPITOR20 M2 PO (18:48)
[2017-06-26] MEDS ORDERED: OXYCONTIN10 M1 PO (18:53)
[2017-06-26 19:24] LABS: ABSOLUTE BASOPHIL COUNT 0 /CUMM (0.0-0.2); ABSOLUTE EOSINOPHIL COUNT 0.1 /CUMM (0.0-0.7); ABSOLUTE GRANULOCYTE CT 14.7 /CUMM (1.4-6.5); ABSOLUTE LYMPH COUNT 1.8 /CUMM (1.2-3.4); ABSOLUTE MONOCYTE COUNT 0.8 /CUMM (0.10-0.60); BASOPHIL % 0.2 % (0.0-2.0); EOSINOPHIL % 0.3 % (0-5); HEMATOCRIT 43.8 % (37-47); MEAN CORPUSCULAR HGB 29.1 PG (27.0-31.0); MEAN CORPUSCULAR HGB CONC 34.3 G/DL (33.0-37.0); MEAN CORPUSCULAR VOLUME 84.9 FL (81.0-99.0); MEAN PLATELET VOLUME 7.3 FL (7.4-10.4); PLATELET COUNT 297 /CUMM (130-400); RBC DISTRIBUTION WIDTH 15.8 % (11.5-14.5); RED BLOOD CELL CT 5.15 /CUMM (4.20-5.40); WHITE BLOOD CELL COUNT 17.4 /CUMM (4.8-10.8)
--- NOTE | 2017-06-26 19:29 | RADIOLOGY REPORT ---
EXAMINATION: XR CHEST CLINICAL INFORMATION: Fever and altered mental status. Rule out pneumonia. COMPARISON: Chest x-ray from 08/23/2016. TECHNIQUE: 2 views of the chest were obtained. FINDINGS: There are low lung volumes with hypoventilatory changes. Left basilar subsegmental atelectasis is noted. The cardiomediastinal silhouette is normal. No pleural effusions are seen. No acute osseous abnormality is evident. IMPRESSION: No consolidative airspace disease. Low lung volumes with hypoventilatory changes which somewhat limits assessment.
[2017-06-26 19:42] LABS: GRANULOCYTE % 84.4 % (42.2-75.2)
--- NOTE | 2017-06-26 21:11 | CT SCAN REPORT ---
CT ABDOMEN AND PELVIS WITHOUT IV CONTRAST CLINICAL INFORMATION: Sepsis and vomiting. COMPARISON: Abdominal CT 07/19/2016. TECHNIQUE: Multidetector volumetric imaging was performed from the superior aspect of the liver through the pubic symphysis. Sagittal and coronal reformatted images were obtained on the technologist's workstation. FINDINGS: The lung bases are clear. Limited evaluation of the unenhanced liver, spleen, and pancreas reveals no definite abnormality. The gallbladder is surgically absent. There is stable left greater than right adrenal gland enlargement, on the left side again measuring up to 2.6 x 2 cm with Hounsfield units greater than that for a lipid rich adenoma. The kidneys are symmetric in size without evidence of hydronephrosis or nephrolithiasis. Nonspecific perinephric stranding bilaterally that is similar to the prior exam. The stomach is decompressed and not diagnostically evaluated. Sigmoid diverticulosis without evidence of acute diverticulitis. Moderate volume intracolonic stool. The large and small bowel are normal in caliber without evidence of mechanical obstruction. No focal inflammatory changes adjacent to the large or the small bowel. The appendix is normal. There is no free air and there is no intra-abdominal free fluid. There is aortoiliac atherosclerotic calcification. Enlarged retroperitoneal lymph nodes are stable. IUD in place. Calcified uterine fibroids. No pelvic adenopathy. No free fluid within the pelvis. There are no acute osseous abnormalities. There are degenerative changes throughout the thoracolumbar spine. No significant soft tissue abnormality. IMPRESSION: No acute findings are identified with assessment limited on this noncontrast study. Sigmoid diverticulosis without evidence of acute diverticulitis. Moderate volume intracolonic stool. Similar appearing left greater than right adrenal enlargement with Hounsfield units greater than that of an adrenal adenoma. Consider an adrenal protocol MRI for further assessment. Enlarged retroperitoneal lymph nodes are stable.
[2017-06-26 22:16] LABS: PT 11.4 SEC (9.4-12.5); PTT 28 SEC (25-37)
--- NOTE | 2017-06-26 23:12 | CT SCAN REPORT ---
EXAMINATION: CT HEAD WITHOUT CONTRAST CLINICAL INFORMATION: Altered mental status. COMPARISON: CT head 07/05/2015 TECHNIQUE: Contiguous axial imaging was performed from the skull base to vertex without intravenous administration of contrast. DLP: 620.90 mGy-cm FINDINGS: There is no evidence of acute intracranial hemorrhage or territorial infarction. No abnormal mass effect or midline shift is seen. [place] to white matter differentiation is well preserved. No extra-axial fluid collections are identified. There is atrophy with prominence of the ventricles and the sulci and hypodensity of the periventricular white matter due to chronic small vessel ischemic disease. The osseous structures and soft tissues are normal. Retention cyst inferior left maxillary sinus. The mastoid air cells and the middle ear cavities are normally aerated. IMPRESSION: No acute intracranial pathology.
--- NOTE | 2017-06-26 23:17 | History & Physical ---
Marco A WEBSTER,[facility] 06/26/17 9057: General Information and HPI MD Statement: I have seen and personally examined CHELITA ANDERSON and documented this H&P. The patient is a 72 year old F who presented with a patient stated chief complaint of [Altered Mental Status]. 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 According to the patient, she was in her usual state of health until this afternoon when after she she woke up from she she felt sick and an episode of vomiting around 4 PM. Her brought her to the hospital because she was very altered and he could not wake her up. Patient takes oxycodone and OxyContin for her joint pains prescribed by pain management clinic at [place]. She ran out of her pain medications and has been using her ' s oxycodone and OxyContin, last dose was given to her by her around 4 PM. She denies any loss of consciousness, chest pain, palpitations, shortness of breath or seizure-like activity. Also denies any recent change in medications or taking [id number]-[id number] drugs but does admit to using marijuana( her gets medical marijuana for liver cancer). She also reports pain or burning with urination that has been going on for the past 8 days. She has been taking her 's ciprofloxacin for 5 days but continues to have the urinary symptoms. Denies any fever/chills or abdominal pain. Allergies/Medications Allergies: Coded Allergies: methotrexate (PT CAN'T REMEMBER REACTION 07/19/16) erythromycin base (PT STATES SHE GETS SHAKY 07/19/16) Home Med list Alprazolam (Xanax) 0.25 MG TABLET 1 TAB PO QPM PRN ANXIETY (Reported) Aspirin (Aspirin*) 81 MG TAB.CHEW 1 TAB PO DAILY HEART (Reported) Atorvastatin Calcium 40 MG TABLET 40 MG PO DAILY HYPERLIPIDEMIA Celecoxib (Celebrex) 200 MG CAPSULE 1 CAP PO DAILY PAIN (Reported) Duloxetine HCl (Cymbalta) 60 MG CAPSULE.DR 1 CAP PO DAILY UNKNOWN (Reported) Famotidine (Pepcid) 20 MG TABLET 1 TAB PO BID PRN ACID REFLUX Furosemide 20 MG TABLET 1 TAB PO DAILY EDEMA (Reported) Lisinopril 40 MG TABLET 1 TAB PO DAILY HEART (Reported) Magnesium Oxide (Magox 400) 400 MG TABLET 1 TAB PO BID LOW MAGNESIUM Mifepristone (Korlym) 300 MG TABLET 1 TAB PO DAILY ENDO (Reported) Oxycodone HCl 5 MG TABLET 1 TAB PO Q4H PAIN (Reported) Oxycodone HCl (Oxycontin) (Unknown Strength) TAB.ER.12H (Unknown Dose) PO AD PAIN (Reported) Pregabalin (Lyrica) 50 MG CAPSULE 1 CAP PO DAILY PAIN (Reported) Spironolactone (Aldactone) 50 MG TABLET 1 TAB PO DAILY HYPOKALEMIA (Reported) Valsartan (Diovan) 160 MG TABLET 1 TAB PO DAILY HEART (Reported) Past History Travel History Traveled to [place] past 21 day No Medical History Neurological: CVA EENT: NONE Cardiovascular: hypertension, hyperlipidemia, myocardial infarction, ?LV HYPERTROPHY Respiratory: NONE Gastrointestinal: NONE Hepatic: NONE Renal: NONE Musculoskeletal: osteoarthritis Psychiatric: NONE Endocrine: diabetes, THYROID NODULE Blood Disorders: NONE 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 spouse Services at Home: Nursing, Physical Therapy Primary Language: Sammarinese Smoking Status: Current Everyday Smoker (1 PPD) ETOH Use: denies use Illicit Drug Use: marijuana Functional Ability ADLs Unknown: dressing, eating, toileting, bathing. 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 Needs Assist: shopping, housework, finances, food prep, telephone, transportation. Review of Systems Review of Systems Constitutional: Reports: no symptoms. EENTM: Reports: no symptoms. Cardiovascular: Reports: no symptoms. Respiratory: Reports: no symptoms. GI: Reports: no symptoms. Genitourinary: Reports: dysuria. Musculoskeletal: Reports: no symptoms. Skin: Reports: no symptoms. Neurological/Psychological: Reports: no symptoms. Hematologic/Endocrine: Reports: no symptoms. Immunologic/Allergic: Reports: no symptoms. All Other Systems: Reviewed and Negative Exam & Diagnostic Data Last 24 Hrs of Vital Signs/I&O Vital Signs Date Time Temp Pulse Resp B/P B/P Pulse O2 O2 Flow FiO2 Mean Ox Delivery Rate 06/27 0246 95 Nasal 2.0L Cannula 06/27 0210 98.3 61 18 118/64 98 Nasal 2.0L Cannula 06/27 0121 98.3 61 20 131/66 98 Nasal 2.0L Cannula 06/26 2131 99.0 74 18 148/76 95 Nasal 2.0L Cannula 06/26 1938 103.0 06/26 1937 103.0 18 06/26 1929 95 Nasal 2.0L Cannula 06/26 1843 103.8 06/26 1830 103.8 06/26 1817 92 Nasal 2.0L Cannula 06/26 1814 102.9 96 20 177/88 87 Room Air Intake & Output 06/27 0800 06/27 0000 06/26 1600 Intake Total Output Total 200 Balance -200 Output, Urine 200 Patient 153 lb 136 lb Weight Weight Bed scale Measurement Method Physical Exam General Appearance Alert, Oriented X3, Cooperative, No Acute Distress Skin No Rashes, No Breakdown HEENT Atraumatic, PERRLA, EOMI, Mucous Membr. moist/pink Neck Supple, No JVD Cardiovascular Regular Rate, Normal S1, Normal S2 Lungs Clear to Auscultation, Normal Air Movement Abdomen Normal Bowel Sounds, Soft, No Tenderness Neurological Normal Speech, Strength at 5/5 X4 Ext, Normal Tone, Sensation Intact, Cranial Nerves 3-12 NL Extremities No Clubbing, No Cyanosis, No Edema Last 24 Hrs of Labs/Karel: Laboratory Tests 06/27/17 0245: Troponin I 0.01 06/26/17 2339: Lactic Acid 0.9 06/26/17 2305: pH 7.46 H, pCO2 40, pO2 80, HCO3 27, ABG O2 Sat (Measured) 96.0, P-50 (Temp Corrected) N, Carboxyhemoglobin 2.8, O2 Concentration % 2L, O2 Delivery Method N /C, Phlebotomy Draw Site RIGHT BRACHIAL 06/26/17 1900: Anion Gap 8, Estimated GFR > 60, BUN/Creatinine Ratio 18.8, Glucose 89, Lactic Acid 1.0, Calcium 8.8, Magnesium 1.7, Total Bilirubin 1.6 H, AST 22, ALT 20, Alkaline Phosphatase 65, Troponin I 0.02, Total Protein 6.1 L, Albumin 3.9, Globulin 2.2, Albumin/Globulin Ratio 1.8, PT 11.4, INR 1.05, APTT 28, CBC w Diff NO MAN DIFF REQ, RBC 5.15, MCV 84.9, MCH 29.1, MCHC 34.3, RDW 15.8 H, MPV 7.3 L, Gran % 84.4 H, Lymphocytes % 10.5 L, Monocytes % 4.6, Eosinophils % 0.3, Basophils % 0.2, Absolute Granulocytes 14.7 H, Absolute Lymphocytes 1.8, Absolute Monocytes 0.8 H, Absolute Eosinophils 0.1, Absolute Basophils 0 06/26/17 1855: Urine Opiates Screen > 4000.00 H, Methadone Screen 52, Barbiturate Screen < 60, Ur Phencyclidine Scrn < 6.00, Amphetamines Screen < 100, U Benzodiazepines Scrn < 85, Urine Cocaine Screen < 50, Urine Cannabis Screen > 80.00 H, Urine Color YEL, Urine Clarity CLEAR, Urine pH 7.5, Ur Specific [place] 1.020, Urine Protein 100 H, Urine Ketones NEG, Urine Nitrite NEG, Urine Bilirubin NEG, Urine Urobilinogen 1.0, Ur Leukocyte Esterase TRACE H, Ur Microscopic SEDIMENT EXAMINED, Urine RBC 5-10 H, Urine WBC 3-5 H, Ur Epithelial Cells FEW, Urine Bacteria MOD H, Urine Mucus RARE, Urine Hemoglobin MOD H, Urine Glucose NEG Microbiology 06/26 2343 NASOPHARYN: Influenza Virus A & B Rapid Smear - COMP 06/26 2049 BLOOD: Blood Culture - RECD 06/26 2029 BLOOD: Blood Culture - RECD 06/26 185 URINE ROUT: Urine Culture - RECD Diagnostic Data EKG Results Normal Sinus rhythm Heart Rate 98, T-wave inversion V2 V3 CXR Results IMPRESSION: No consolidative airspace disease. Low lung volumes with hypoventilatory changes which somewhat limits assessment. Other Results CT ABD & PELVIS W/O IV CONTRAST IMPRESSION: No acute findings are identified with assessment limited on this noncontrast study. Sigmoid diverticulosis without evidence of acute diverticulitis. Moderate volume intracolonic stool. Similar appearing left greater than right adrenal enlargement with Hounsfield units greater than that of an adrenal adenoma. Consider an adrenal protocol MRI for further assessment. Enlarged retroperitoneal lymph nodes are stable. CT HEAD WO IV CONTRAST IMPRESSION: No acute intracranial pathology. CT CHEST WO IV CONTRAST IMPRESSION: No acute abnormality CT of chest. There is mild mosaic attenuation of liver parenchyma which can be due to small airways disease but there is no acute infiltrate. 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 A/P 1. Sepsis of urological origin(fever of 102.9, white count 17.4, total bilirubin 1.6 with UTI) 2. Hypokalemia and hypomagnesemia 3. Altered mental status; likely from opiates with pinpoint pupils and polypharmacy. U tox positive for opiates and cannabis. 4. History of [place] syndrome 5. History of anemia - We will admit the patient to telemetry floor - Chest x-ray and CT chest, abdomen and pelvis negative for any acute infectious process. - Patient received 1 dose of IV Unasyn in the ER. UA with positive leukocyte esterase and negative nitrites, ?? Enterococcus. Will continue Unasyn for now while awaiting urine culture. - Elevated bilirubin likely secondary to sepsis, we'll repeat an a.m. - Follow-up blood cultures. - Flu test negative. - Replete potassium and magnesium, repeat labs in a.m. Patient has a finding of adrenal adenoma on the left on CAT scan abdomen and pelvis, which along with hypokalemia, hypertension and metabolic alkalosis could be suggestive of Conn's syndrome. Suggest Workup as an outpatient. - Mental status and pupils responded to one dose of Narcan in the ER. Head CT negative for any acute pathology. We will hold oxycodone and OxyContin for now. Utox positive for opiates and cannabis. Pain managed with Tylenol and celecoxib. - Continue mifepristone for [place] syndrome. - Patient states she has been off Lasix for 2 years now, which was stopped by her primary care physician because of hypokalemia. Also she is unsure about the Aldactone. We'll resume these medications after confirming with her pharmacy( [facility]) in the morning. - Patient was on metformin in the past for diabetes, but currently denies being on an as she was taken off it after her blood sugars were back to normal after losing weight. - Continue rest of her home medications. DVT prophylaxis; subcutaneous Lovenox Patient is full code As Ranked By This Provider Problem List: 1. Sepsis 2. Hypomagnesemia 3. Hypokalemia 4. UTI (urinary tract infection) 5. Altered mental status Core Measures/Misc (12/30) Acute Coronary Syndrome ACS Diagnosis: No Congestive Heart Failure Congestive Heart Failure Diagnosis No Cerebrovascular Accident CVA/TIA Diagnosis: No VTE (View Protocol) VTE Risk Factors Age>40 No Mechanical VTE Prophylaxis d/t N/A MechProphylax Ordered No VTE Pharm Prophylaxis d/t NA PharmProphylax ordered Sepsis (View protocol) Sepsis Present: Yes All Love 06/27/17 0115: Resident Review Statement Resident Statement: examined this patient, discussed with customer success intern, agreed with customer success intern, discussed with family, reviewed EMR data (avail), discussed with nursing , discussed with case mgmt, reviewed images, amended to note Other Findings: This is a 72-year-old female with past medical history significant for anxiety, depression, GERD, hypertension, hyperlipidemia, diabetes mellitus, Reilly syndrome, remote history of CVA, CLL not on chemotherapy, thyroid nodule, osteoarthritis, osteoporosis, chronic use of opiates, history of hypokalemia and hypomagnesemia, left adrenal gland enlargement is brought in by ambulance for evaluation of altered mental status. She was BIBA for AMS. According to the ER documentation and patient -patient was given 2 tablets of oxycodone around 4 PM by her , after that she was found nauseous, with one episode of vomiting. However at around 6 PM she couldn 't wake up. Her brought her in ambulance for further evaluation. states that she was responding verbally at that time however very altered. She was given 0.2 mg of Narcan in the emergency room because of pinpoint pupils and altered mental status Patient has not seen her pain management doctor this week and has been giving her his doses of pain meds including morphine and oxycodone. states that patient had UTI approximately 1 week ago however this was treated with husbands oral antibiotics ciprofloxicin for 5 days. During our conversation patient is alert awake and oriented to time place and person. She was able to remember that she couldn't wake up. Also reported that her brought her to the emergency room. She offers frequency, dysuria, urgency. Denies any lower abdominal pain. Review of systems negative for chest pain, shortness of breath, fever, chills, nausea, vomiting, abdomen pain. She continues to smoke 1 pack per day. Denies alcohol abuse. However uses marijuana, gets from here . --------- Vitals MAXIMUM TEMPERATURE 103.8, heart rate 96, respiratory rate 20, blood pressure 140/76, saturating at 95 on 2 L oxygen. On exam HEENT within normal limits s1 s2 no murmurs no JVD Bilateral breath sounds normal Abdomen soft, nontender nondistended Bilateral lower extremities no edemacyanosis no clubbing Motor exam within normal limits, sensations intact, cranial nerve 2-12 intact Labs Leukocytosis 17.4, hemoglobin 15, hematocrit 43, platelets 287. Sodium 138, potassium 2.7, BUN 15, creatinine 0.8. Lactic acid 1 ABG normal Coags were normal Total bili 1.6, normal LFTs. Mag 1.7 EKG showed sinus rhythm, rate 98, T-wave inversion V2 V3 Head CT, chest CT, abdomen CT were done in the emergency room ------ 1. Altered mental status Patient was found altered, difficulty to arouse after taking oxycodone, given by her . Patient reports that she took 2 pills of 5 mg of oxycodone. Patient was arousable after giving 0.2 mg of Narcan. Off note she was found to have pinpoint pupils. She was hemodynamically stable with normal blood pressure , MAXIMUM TEMPERATURE 103.8. Head CT was negative. CT chest no pneumonia was found. CAT scan abdomen no acute abnormality. * Altered mental status most possibly from polypharmacy, opiate use. Patient is on oxycodone, OxyContin,, Lyrica. U tox positive for opiates, cannabis * Admit to telemetry for hypokalemia * Monitor vitals every shift * Fall precaution * Aspiration precaution * Pain management with Tylenol. * Please hold oxycodone and OxyContin, Lyrica given her altered mentation on presentation 2. Sepsis secondary to UTI Patient was found to have MAXIMUM TEMPERATURE 103.8 with leukocytosis 17.4. She reports frequency, urgency, dysuria for last 1 week. She was taking ciprofloxacin from her 's prescription. However given her urine symptoms , urine analysis findings showed leukocyte esterase, WBC, bacteria will treat her for UTI. Chest x-ray was done which ruled out pneumonia, CT abdomen was done, no acute infection was found * Monitor vitals every shift * Monitor fever curve, leukocytosis * Received 3 L of normal saline in the emergency room * We will continue IV Unasyn for UTI * Please follow-up blood cultures * Follow-up urine cultures, change antibiotics accordingly * Flu was negative in the emergency room * Lactic acid was normal 3. Hypokalemia Patient has prior history of hypokalemia. CAT scan showed stable left greater than right adrenal gland enlargement, on the left side again measuring up to 2.6 x 2 cm with Hounsfield units greater than that for a lipid rich adenoma. Patient is on Aldactone 50 mg daily. Given left adrenal enlargement, hypokalemia, high blood pressure-1 of the possibility might be Conn syndrome * Needs outpatient endocrine workup for Conn syndrome * Replete potassium * Continuous telemetry monitoring * Follow-up potassium in a.m. * Patient was given 1 dose of Aldactone 50 mg in the emergency room * Please confirm with pharmacy about Aldactone dose. * Serial troponin and EKG 4. Hypomagnesemia Magnesium 1.7 IV Mg was given Follow-up mg a.m. 5. Elevated bilirubin Bilirubin 1.6 at the time of admission. Most likely from sepsis. Will repeat LFTs in a.m. 6. Constipation Bowel regimen was added 7. Diabetes mellitus Patient reports that she has remote history of diabetes, was on metformin in the past. However she couldn't remember much of the information. * Insulin sliding scale was ordered * Please confirm with pharmacy about metformin Anxiety-takes Xanax 0.25 mg when necessary every night. His hold Xanax for now given altered mental status. HLP- Continue baby aspirin and Lipitor 40 mg daily for hyperlipidemia Chronic pain/osteoarthritis * Continue celecoxib 200 mg daily * Please hold oxycodone, OxyContin, Lyrica * Pain management with the Tylenol, celecorib Depression Continue Cymbalta 60 mg daily GERD Continue Pepcid 20 mg twice daily Hypertension Continue lisinopril, valsartan Reilly syndrome Continue mifepristone 300 mg daily. Please ask to get medication from home. Patient is full code Regular diet 80 prophylaxis subcutaneous Lovenox Please confirm medications with the pharmacy in a.m. Holding oxycodone, OxyContin, Lyrica, Xanax. 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 Previous coronary catheterization was complicated by groin pseudoaneurysm requiring surgical intervention, heart failure with preserved ejection fraction Patient was brought in ER through EMS after found altered at home. History was provided by family to ambulance that patient was given her 's pain medication, he gave her 5 mg of oxycodone and 50 mg of morphine by mouth around 12, after that patient was sleeping and could not be woken up, she appeared very lethargic so EMS was called. Patient was given Narcan in ER, became more alert. When we evaluated the patient she said that she was sleeping. She denies any extra pain medication use, she takes 5 mg of oxycodone and 5 mg of OxyContin according to her. Patient has been taking her 's pain medication and using his medical marijuana for her chronic arthritis pain. She has noticed urinary frequency and burning since last 1 week and was taking ciprofloxacin since last 5 days which she had at her home, she denies any fever, chills, abdominal pain, back pain. She had one episode of vomiting this morning before coming to ER. Patient denies any cough or expectoration, URI symptoms, chest pain, chest tightness, shortness of breath. Patient could not confirm her medication Vitals: T max 103.8, RR 20, pulse 96, blood pressure 177/88, saturating well on 2 L nasal cannula. On exam: A O 3, cooperative, no acute distress, neck supple, JVD normal, no lymphadenopathy, mucosa moist, no focal neurological deficit, no dependent edema , no obvious skin rashes or inflammation CVS: S1-S2, RRR. RS: Clear to auscultate bilaterally. Abdomen: Soft, NT, ND, bowel sounds present. CT abdomen and pelvis, CT chest, CT head: No acute abnormalities, persistent retroperitoneal lymph nodes, stable left greater than right adrenal gland enlargement Assessment and plan 72 year old female with extensive past medical history and multiple comorbidities presented in ER through EMS as she was found lethargic and difficult to arouse by her family. Patient had taken her 's pain medications before sleeping. She had one episode of vomiting at home according to the family. Patient was lethargic when she came to ER, she responded to one dose of Narcan, currently alert oriented and provides all details of the history. ABG unremarkable for any CO2 retention. Patient endorses some urinary burning and frequency since last 5 days and she was taking ciprofloxacin at home which was there since her previous prescription. There is no CVA tenderness or suprapubic tenderness on examination. She has leukocytosis with left shift. She is also found to have significant hypokalemia which is not new to her, metabolic alkalosis and UA positive for trace leukocyte esterase, U tox positive for opiates, marijuana. No significant lactic acidosis. Patient has nonspecific T- wave changes on ECG. Patient cannot confirm any of her home medications, her medication should be confirmed with her family and pharmacy. Previous urine culture positive for sensitive Escherichia coli but currently patient does not have nitrites in her urine only leukocyte Estrace positive. It could be partially treated UTI by self-medication versus gram-positive cocci causing UTI is a possibility, we'll continue Unasyn for now. There is no mention of onset syndrome but given her persistent metabolic alkalosis, hypokalemia and adrenal tumors she may need further evaluation for Conn syndrome, she is currently on spironolactone + Toxic encephalopathy secondary to polypharmacy and opiate overdose responded to Narcan + Cystitis with sepsis + Hypokalemia + Metabolic alkalosis - Admit to telemetry - Continuous telemetry monitoring - Serial ECGs and troponin - Saline lock IV after fluid orders from ER is complete - Replete potassium, recheck 4 hours after repletion - Replete magnesium - Continue IV Unasyn - Follow blood culture and urine culture - Hold all her pain medications and Lyrica and alprazolam - Patient's meds should be confirmed from pharmacy and patient's family - For now continue lisinopril, spironolactone, mifepristone, aspirin, atorvastatin, famotidine - Continue sliding scale insulin with Accu-Cheks : Patient states that she has not been taking diabetes medications since she lost her weight - OT PT evaluation - DVT prophylaxis
--- NOTE | 2017-06-26 23:24 | CT SCAN REPORT ---
EXAMINATION: CT CHEST WITHOUT CONTRAST CLINICAL INFORMATION: Altered mental status COMPARISON: Chest x-ray 06/26/2017. CT scan abdomen pelvis 07/19/2016 TECHNIQUE: Multidetector volumetric CT imaging of the chest was done. Axial MIP volume rendering provided. Sagittal and coronal reformatted images were obtained. DLP: 330.42 mGy-cm FINDINGS: LUNGS: No acute infiltrate. There is mild mosaic attenuation of lung parenchyma which can be due to small airways disease. There is no bronchiectasis. The central bronchial airways are open. No significant bronchial wall thickening. There are scattered in linear bands of scarring or atelectasis in the lungs bilateral. MEDIASTINUM: There is no mediastinal mass or significant lymphadenopathy. There are vascular wall calcifications of aorta without aneurysm of the aorta. PLEURA: There is no pleural effusion. No pleural mass or thickening. AXILLA: No lymphadenopathy. UPPER ABDOMEN: Left adrenal gland is enlarged. Measures 5 x 2.5 x 2.4 cm. This is stable since CAT scan 07/19/2016. Status post cholecystectomy. OSSEOUS STRUCTURES: Multilevel degenerative spondylosis spine with endplate spurring of vertebrae and multilevel disc height narrowing IMPRESSION: No acute abnormality CT of chest. There is mild mosaic attenuation of liver parenchyma which can be due to small airways disease but there is no acute infiltrate.
[2017-06-27 02:10] VITALS: BP 118/64
--- NOTE | 2017-06-27 05:49 | Admission Certification ---
Admission Certification Certification Statement - As attending physician, I certify that at the time of - admission, based on clinical presentation, severity of - symptoms, need for further diagnostic testing and - therapeutic interventions, and risk of adverse outcomes - without in-hospital treatment, in my clinical assessment, - this patient requires an acute hospital stay for a minimum - of two nights or longer. I have also considered psychsocial - factors such as support system, advanced age, financial - issues, cognitive issues, and failed out-patient treatments, - past re-admission history, safety of patient, and lack of - compliance as applicable. Specific rationale supporting this admission is: Encephalopathy, sepsis with UTI, hypomagnesemia and hypokalemia
[2017-06-27 06:52] VITALS: BP 160/76
--- NOTE | 2017-06-27 07:54 | PN- Housestaff ---
Rere WEBSTER,Peyton 06/27/17 0753: Subjective Follow-up For: Opiate overdose Hypokalemia Hypomagnesemia Subjective: Seen and examined She remains stable, denies any pain, nausea, vomiting. Very frustated about not getting pain medications. Review of Systems Constitutional: Reports: see HPI. Objective Last 24 Hrs of Vital Signs/I&O Vital Signs Date Time Temp Pulse Resp B/P B/P Pulse O2 O2 Flow FiO2 Mean Ox Delivery Rate 06/27 0652 98.3 63 20 160/76 94 Room Air 06/27 0246 95 Nasal 2.0L Cannula 06/27 0210 98.3 61 18 118/64 98 Nasal 2.0L Cannula 06/27 0121 98.3 61 20 131/66 98 Nasal 2.0L Cannula 06/26 2131 99.0 74 18 148/76 95 Nasal 2.0L Cannula 06/26 1938 103.0 06/26 1937 103.0 18 06/26 1929 95 Nasal 2.0L Cannula 06/26 1843 103.8 06/26 1830 103.8 06/26 181 92 Nasal 2.0L Cannula 06/26 181 102.9 96 20 177/88 87 Room Air Intake & Output 06/27 0800 06/27 0000 06/26 1600 Intake Total 350 Output Total 200 Balance 350 -200 Intake, IV 250 Intake, Oral 100 Output, Urine 200 Patient 69.541 kg 61.689 kg Weight Weight Bed scale Measurement Method Physical Exam General Appearance: Alert, Oriented X3, Cooperative, No Acute Distress Skin: No Rashes, No Breakdown HEENT: Atraumatic, MYDRIATIC PUPILS Neck: Supple Cardiovascular: Normal S1, Normal S2 Lungs: Clear to Auscultation, Normal Air Movement Abdomen: Normal Bowel Sounds, Soft, No Tenderness Neurological: Normal Tone, Sensation Intact Extremities: No Clubbing, No Cyanosis Vascular: Normal Pulses Current Medications: Current Medications Sig/Sugar Start time Last Medication Dose Route Stop Time Status Admin Acetaminophen 650 MG Q6P PRN 06/270 AC PO Acetaminophen 1,000 MG Q6P PRN 06/270 AC N/A 1 UNIT IV Acetaminophen 1,000 MG ONCE ONE 06/26 1914 DC 06/26 N/A 1 UNIT IV 06/26 Acetaminophen 0 .STK-MED ONE 03/14 1841 DC IV Amlodipine Besylate 5 MG DAILY 06/27 1543 AC PO Ampicillin Sodium/ 3,000 MG Q6 06/27 0200 AC 06/27 Sulbactam Sodium IV 1327 Sodium Chloride 100 ML Ampicillin Sodium/ 3,000 MG ONCE ONE 06/26 2000 DC 06/26 Sulbactam Sodium IV 06/26 2028 2113 Sodium Chloride 100 ML Aspirin 81 MG DAILY 06/27 1000 AC 06/27 PO 1030 Atorvastatin Calcium 40 MG 1700 06/27 1700 AC PO Celecoxib 200 MG DAILY 06/27 1000 AC 06/27 PO 1030 Duloxetine HCl 60 MG DAILY 06/27 1000 AC 06/27 PO 1030 Enoxaparin Sodium 40 MG DAILY 06/27 1000 AC 06/27 SC 0842 Famotidine 20 MG BID 06/27 1000 AC 06/27 PO 0842 Furosemide 20 MG DAILY 06/27 1000 CAN PO Insulin Aspart 0 TIDAC 06/27 0030 DC 06/27 SC 1327 Lisinopril 40 MG DAILY 06/27 1000 AC 06/27 PO 1030 Losartan Potassium 50 MG DAILY 06/27 1000 CAN PO Magnesium Oxide 400 MG BID 06/27 1000 AC 06/27 PO 0842 Magnesium Sulfate 1 GM ONCE ONE 06/27 0045 DC 06/27 Dextrose/Water 100 ML IV 06/27 0444 0151 Naloxone HCl 0 .STK-MED ONE 06/26 1929 DC .ROUTE Naloxone HCl 0.2 MG ONCE ONE 06/26 191 DC 06/26 IV 06/26 191 1938 Non-Formulary 0 SEE ADMIN CRITERIA 06/27 0030 UNV Medication ANY Oxycodone HCl 15 MG BID 06/27 2200 AC PO Oxycodone HCl 5 MG Q6P PRN 06/27 1545 AC PO Polyethylene Glycol 17 GM DAILY PRN 06/27 0030 AC PO Potassium Chloride 40 MEQ ONCE ONE 06/27 1530 DC PO 06/27 1531 Potassium Chloride 40 MEQ ONCE ONE 06/27 0945 DC 06/27 PO 06/27 0946 1030 Potassium Chloride 40 MEQ ONCE ONE 06/27 0530 DC 06/27 PO 06/27 0531 0546 Potassium Chloride 10 MEQ Q1H 06/27 0530 DC 06/27 IV 06/27 0631 0841 Potassium Chloride 40 MEQ ONCE ONE 06/27 0045 CAN PO 06/27 0046 Potassium Chloride 0 .STK-MED ONE 03/14 2355 DC PO Potassium Chloride 20 MEQ ONCE ONE 06/26 2345 DC 06/26 PO 06/26 234 235 Potassium Chloride 10 MEQ ONCE ONE 06/26 2199 DC 06/26 IV 06/26 2200 231 Potassium Chloride 0 .STK-MED ONE 06/26 2130 DC PO Potassium Chloride 40 MEQ ONCE ONE 06/26 213 DC 06/26 PO 06/26 Pregabalin 50 MG DAILY 06/27 1000 CAN PO Senna/Docusate Sodium 2 TAB DAILY PRN 06/27 0030 AC PO Sodium Chloride 1,000 ML BOLUS ONE 06/26 2100 DC 06/26 IV 06/26 Sodium Chloride 1,000 ML BOLUS ONE 06/26 1845 DC 06/26 IV 06/26 1944 1921 Spironolactone 50 MG DAILY 06/27 1000 CAN PO Spironolactone 50 MG ONCE ONE 06/27 0115 DC 06/27 PO 06/27 0116 0151 Last 24 Hrs of Lab/Karel Results Last 24 Hrs of Labs/Mics: Laboratory Tests 06/27/17 1726: Potassium Pending 06/27/17 0620: Troponin I Cancelled 06/27/17 0620: Anion Gap 10, Estimated GFR > 60, BUN/Creatinine Ratio 11.1, Total Bilirubin 1.1 , Direct Bilirubin 0.2, AST 15, ALT 20, Alkaline Phosphatase 60, Troponin I < 0.01, Total Protein 5.0 L, Albumin 3.1 L, CBC w Diff NO MAN DIFF REQ, RBC 4.62 , MCV 86.9, MCH 29.6, MCHC 34.0, RDW 16.0 H, MPV 7.7, Gran % 83.6 H, Lymphocytes % 13.1 L, Monocytes % 2.8, Eosinophils % 0.1, Basophils % 0.4, Absolute Granulocytes 13.6 H, Absolute Lymphocytes 2.1, Absolute Monocytes 0.5, Absolute Eosinophils 0, Absolute Basophils 0.1 06/27/17 0245: Troponin I 0.01 06/26/17 2339: Lactic Acid 0.9 06/26/17 2305: pH 7.46 H, pCO2 40, pO2 80, HCO3 27, ABG O2 Sat (Measured) 96.0, P-50 (Temp Corrected) N, Carboxyhemoglobin 2.8, O2 Concentration % 2L, O2 Delivery Method N /C, Phlebotomy Draw Site RIGHT BRACHIAL 06/26/17 1900: Anion Gap 8, Estimated GFR > 60, BUN/Creatinine Ratio 18.8, Glucose 89, Lactic Acid 1.0, Calcium 8.8, Magnesium 1.7, Total Bilirubin 1.6 H, AST 22, ALT 20, Alkaline Phosphatase 65, Troponin I 0.02, Total Protein 6.1 L, Albumin 3.9, Globulin 2.2, Albumin/Globulin Ratio 1.8, PT 11.4, INR 1.05, APTT 28, CBC w Diff NO MAN DIFF REQ, RBC 5.15, MCV 84.9, MCH 29.1, MCHC 34.3, RDW 15.8 H, MPV 7.3 L, Gran % 84.4 H, Lymphocytes % 10.5 L, Monocytes % 4.6, Eosinophils % 0.3, Basophils % 0.2, Absolute Granulocytes 14.7 H, Absolute Lymphocytes 1.8, Absolute Monocytes 0.8 H, Absolute Eosinophils 0.1, Absolute Basophils 0 06/26/17 1855: Urine Opiates Screen > 4000.00 H, Methadone Screen 52, Barbiturate Screen < 60, Ur Phencyclidine Scrn < 6.00, Amphetamines Screen < 100, U Benzodiazepines Scrn < 85, Urine Cocaine Screen < 50, Urine Cannabis Screen > 80.00 H, Urine Color YEL, Urine Clarity CLEAR, Urine pH 7.5, Ur Specific [place] 1.020, Urine Protein 100 H, Urine Ketones NEG, Urine Nitrite NEG, Urine Bilirubin NEG, Urine Urobilinogen 1.0, Ur Leukocyte Esterase TRACE H, Ur Microscopic SEDIMENT EXAMINED, Urine RBC 5-10 H, Urine WBC 3-5 H, Ur Epithelial Cells FEW, Urine Bacteria MOD H, Urine Mucus RARE, Urine Hemoglobin MOD H, Urine Glucose NEG Microbiology 06/26 2343 NASOPHARYN: Influenza Virus A & B Rapid Smear - COMP 06/26 2049 BLOOD: Blood Culture - RES 06/26 2029 BLOOD: Blood Culture - RES 06/26 185 URINE ROUT: Urine Culture - RES GRAM NEGATIVE RODS Assessment/Plan Assessment: Patient is a 72 YO F with PMH of HTN, DM currently not on medications after the weight loss, thyroid nodule, history of anemia, history of chronic hypokalemia, [place] syndrome diagnosed after adrenal incidentaloma evaluation, osteoporosis, osteoarthritis, CLL under remission since last 1 year currently not on any treatment, CAD S/P nonconclusive cath (EF 40%), no stents, CVA. 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 She presented in ER through EMS as she was found lethargic and difficult to arouse after taking her medications. She had one episode of vomiting at home according to the family. Patient was lethargic when she came to ER, she responded to one dose of Narcan, by the time arrived to ER alert oriented and provides all details of the history. ABG unremarkable for any CO2 retention. Patient endorses some urinary burning and frequency since last 5 days and she was taking ciprofloxacin at home which was there since her previous prescription. There is no CVA tenderness or suprapubic tenderness on examination. She has leukocytosis with left shift. She is also found to have significant hypokalemia which is not new to her, metabolic alkalosis and UA positive for trace leukocyte esterase, U tox positive for opiates, marijuana. No significant lactic acidosis. Problem list 1. Toxic encephalopathy secondary to polypharmacy/opiate overdose responded to Narcan 2. Cystitis with sepsis 3. Hypokalemia 4 . Metabolic alkalosis 1. Altered mental status Patient was found altered, difficulty to arouse after taking oxycodone, given by her . Patient reports that she took 2 pills of 5 mg of oxycodone and morphine sulfate. Patient was arousable after giving 0.2 mg of Narcan. Off note she was found to have pinpoint pupils. She was hemodynamically stable with normal blood pressure, MAXIMUM TEMPERATURE 103.8. Head CT was negative. CT chest no pneumonia was found. CAT scan abdomen no acute abnormality. * Altered mental status most possibly from polypharmacy, opiate use. Patient is on oxycodone, OxyContin,, Lyrica. U tox positive for opiates, cannabis * Admited to telemetry for hypokalemia * Fall precaution * Pain management with Tylenol. * Restarted her pain medications after confirming from pharmacy. 2. Sepsis secondary to UTI Patient was found to have MAXIMUM TEMPERATURE 103.8 with leukocytosis 17.4. She reports frequency, urgency, dysuria for last 1 week. She was taking ciprofloxacin from her 's prescription. However given her urine symptoms , urine analysis findings showed leukocyte esterase, WBC, bacteria will treat her for UTI. Chest x-ray was done which ruled out pneumonia, CT abdomen was done, no acute infection was found * Monitor fever curve, leukocytosis * Received 3 L of normal saline in the emergency room * We will continue IV Unasyn for UTI * Urine cultures grew Gram negative rods -- likely will transition to ceftriaxone tomoorrw. * f/u blood cultures 3. Hypokalemia Patient has prior history of hypokalemia. She had a h/o adrenal adenoma and on spironolactone 50mg daily since long time. CAT scan showed stable left greater than right adrenal gland enlargement, on the left side again measuring up to 2.6 x 2 cm with Hounsfield units greater than that for a lipid rich adenoma. Patient is on Aldactone 50 mg daily. 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 * Continue Aldactone 50 mg dialy. 4. Hypomagnesemia Magnesium 1.7 IV Mg was given Follow-up mg a.m. 5. Elevated bilirubin Resolved. Probably secondary to sepsis 6. Anxiety-takes Xanax 0.25 mg when necessary every night. His hold Xanax for now given altered mental status. 7. HLP- Continue baby aspirin and Lipitor 40 mg daily for hyperlipidemia Chronic pain/osteoarthritis * Continue celecoxib 200 mg daily * Continue home regimen Oxycodone/Oxycontine Depression Continue Cymbalta 60 mg daily GERD Continue Pepcid 20 mg twice daily Hypertension Continue lisinopril, valsartan, amlodipine 5mg daily (ACEI & ARB??) [place] syndrome Continue mifepristone 300 mg daily. This needs confirmation. Please ask to get medication from home. Patient is full code Regular diet DVT prophylaxis with subcutaneous Lovenox Problem List: 1. Hypokalemia 2. Altered mental status 3. UTI (urinary tract infection) 4. Hypomagnesemia Pain Ratin Pain Location: n/a Pain Goal: Pain 4 or less Pain Plan: tylenol oxycodone oxycontine Tomorrow's Labs & Rationales: cbc,bep to follow white count and electrolytes Travis WEBSTER,Gabrielle 06/27/17 1429: Attending MD Review Statement Attending Statement Attending MD Statement: examined this patient, discuss w/resident/PA/SLOT MACHINE KEY PERSON, agreed w/resident/PA/SLOT MACHINE KEY PERSON, discussed with family, reviewed EMR data (avail), discussed with nursing, discussed with case mgmt, amended to note Attending Assessment/Plan: Problems: 1. Altered mental status; likely an encephalopathy related to medications and underlying infection 2. Urinary tract infection. 3. Chronic hypokalemia 4. Chronic pain syndrome 5. Wgo-vyjonuv-ficdzbaig diabetes mellitus Recommendations: -Supplement potassium orally. Begin patient on-potassium chloride 40 mEq orally daily. -Repeat potassium level. Once potassium is greater than 2.9 discontinue telemetry monitoring. -Continue antibiotic therapy with IV Unasyn. Follow-up urine culture results. Patient will need to complete 2 weeks of antibiotic therapy for her urinary tract infection. -Resume her home pain regimen of oxycodone/OxyContin with caution to prevent opioid withdrawal. -Mobilize patient as tolerated. -Anticipate discharge in the next 24-48 hours.
[2017-06-27 08:23] LABS: ABSOLUTE BASOPHIL COUNT 0.1 /CUMM (0.0-0.2); ABSOLUTE EOSINOPHIL COUNT 0 /CUMM (0.0-0.7); ABSOLUTE GRANULOCYTE CT 13.6 /CUMM (1.4-6.5); ABSOLUTE LYMPH COUNT 2.1 /CUMM (1.2-3.4); ABSOLUTE MONOCYTE COUNT 0.5 /CUMM (0.10-0.60); BASOPHIL % 0.4 % (0.0-2.0); EOSINOPHIL % 0.1 % (0-5); HEMATOCRIT 40.2 % (37-47); MEAN CORPUSCULAR HGB 29.6 PG (27.0-31.0); MEAN CORPUSCULAR VOLUME 86.9 FL (81.0-99.0); MEAN PLATELET VOLUME 7.7 FL (7.4-10.4); RED BLOOD CELL CT 4.62 /CUMM (4.20-5.40); WHITE BLOOD CELL COUNT 16.3 /CUMM (4.8-10.8)
[2017-06-27 08:51] VITALS: BP 160/70
[2017-06-27 09:31] LABS: GRANULOCYTE % 83.6 % (42.2-75.2); PLATELET COUNT 255 /CUMM (130-400)
[2017-06-27 15:22] VITALS: BP 144/72
[2017-06-27] MEDS ORDERED: OXYCONTIN15 M1 PO (15:39)
[2017-06-27] MEDS ORDERED: OXYCODONE HCL5 M1 PO (15:40)
[2017-06-27] MEDS ORDERED: NORVASC5 M1 PO (15:42)
[2017-06-27 22:44] VITALS: BP 160/80
[2017-06-28 06:51] VITALS: BP 136/80
--- NOTE | 2017-06-28 07:27 | PN- Housestaff ---
Rere WEBSTER,Peyton 06/28/17 0727: Subjective Follow-up For: Refractory hypokalemia Morphine sensitivity Subjective: seen and examined Patient reports nausea early in the morning. Atrributes this to not taking famotidine today. Otherwise reports feeling better. No overnight issues. Review of Systems Constitutional: Reports: see HPI. Objective Last 24 Hrs of Vital Signs/I&O Vital Signs Date Time Temp Pulse Resp B/P B/P Pulse O2 O2 Flow FiO2 Mean Ox Delivery Rate 06/28 0651 99.1 61 20 136/80 93 Room Air 06/27 2244 98.3 67 22 160/80 95 06/27 2136 73 144/72 06/27 2134 73 144/72 06/27 1522 99.4 73 16 144/72 96 Room Air 06/27 1125 Room Air 06/27 1030 64 160/70 06/27 0851 64 160/70 94 Room Air 06/27 0800 Room Air Intake & Output 06/28 0800 06/28 0000 06/27 1600 Intake Total 110 400 910 Output Total Balance 110 400 910 Intake, IV 10 250 Intake, Oral 100 400 660 Number 1 Bowel Movements Patient 71.781 kg Weight Physical Exam General Appearance: Alert, Oriented X3, Cooperative Skin: No Rashes, No Breakdown HEENT: Atraumatic, PERRLA, EOMI Neck: Supple Cardiovascular: Normal S1, Normal S2 Lungs: Clear to Auscultation, Normal Air Movement Abdomen: Normal Bowel Sounds, Soft, No Tenderness Neurological: Normal Tone, Sensation Intact Extremities: No Clubbing, No Cyanosis Vascular: Normal Pulses Current Medications: Current Medications Sig/Sugar Start time Last Medication Dose Route Stop Time Status Admin Acetaminophen 650 MG Q6P PRN 06/27 0030 AC PO Acetaminophen 1,000 MG Q6P PRN 06/27 0030 AC N/A 1 UNIT IV Amlodipine Besylate 5 MG DAILY 06/27 1543 AC 06/28 PO 0913 Ampicillin Sodium/ 3,000 MG Q6 06/27 0200 AC 06/28 Sulbactam Sodium IV 0637 Sodium Chloride 100 ML Aspirin 81 MG DAILY 06/27 1000 AC 06/28 PO 0912 Atorvastatin Calcium 40 MG 1700 06/27 1700 AC 06/27 PO 1751 Celecoxib 200 MG DAILY 06/27 1000 AC 06/28 PO 0914 Duloxetine HCl 60 MG DAILY 06/27 1000 AC 06/28 PO 0912 Enoxaparin Sodium 40 MG DAILY 06/27 1000 AC 06/28 SC 0913 Famotidine 20 MG BID 06/27 1000 AC 06/28 PO 0913 Insulin Aspart 0 TIDAC 06/27 0030 DC 06/27 SC 1327 Lisinopril 40 MG DAILY 06/27 1000 AC 06/28 PO 0913 Losartan Potassium 50 MG DAILY 06/27 1753 AC 06/28 PO 0912 Magnesium Oxide 400 MG BID 06/27 1000 AC 06/28 PO 0912 Non-Formulary 0 SEE ADMIN CRITERIA 06/27 0030 UNV Medication ANY Ondansetron HCl 4 MG ONCE ONE 06/28 0300 DC 06/28 PO 06/28 0301 0301 Oxycodone HCl 15 MG BID 06/27 2200 AC 06/28 PO 0914 Oxycodone HCl 5 MG Q6P PRN 06/27 1545 AC PO Polyethylene Glycol 17 GM DAILY PRN 06/27 0030 AC PO Potassium Chloride 40 MEQ BID 06/28 1000 AC 06/28 PO 0913 Potassium Chloride 20 MEQ ONCE ONE 06/27 1900 DC 06/27 PO 06/27 1901 2135 Potassium Chloride 40 MEQ ONCE ONE 06/27 1530 DC 06/27 PO 06/27 1531 1751 Senna/Docusate Sodium 2 TAB DAILY PRN 06/27 0030 AC PO Spironolactone 50 MG DAILY 06/28 1000 AC 06/28 PO 0912 Last 24 Hrs of Lab/Karel Results Last 24 Hrs of Labs/Mics: Laboratory Tests 06/28/17 0630: Anion Gap 6, Estimated GFR > 60, BUN/Creatinine Ratio 8.6, Magnesium 1.7, CBC w Diff NO MAN DIFF REQ, RBC 4.51, MCV 86.8, MCH 29.4, MCHC 33.8, RDW 16.3 H, MPV 7.8, Gran % 67.9, Lymphocytes % 22.9, Monocytes % 7.4, Eosinophils % 1.3, Basophils % 0.5, Absolute Granulocytes 7.9 H, Absolute Lymphocytes 2.7, Absolute Monocytes 0.9 H, Absolute Eosinophils 0.1, Absolute Basophils 0.1 06/27/17 1726: Magnesium 1.8 Assessment/Plan Assessment: Patient is a 72 YO F with PMH of HTN, DM currently not on medications after the weight loss, thyroid nodule, history of anemia, history of chronic hypokalemia, [place] syndrome diagnosed after adrenal incidentaloma evaluation, osteoporosis, osteoarthritis, CLL under remission since last 1 year currently not on any treatment, CAD S/P nonconclusive cath (EF 40%), no stents, CVA. 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 She presented in ER through EMS as she was found lethargic and difficult to arouse after taking her medications. She had one episode of vomiting at home according to the family. Patient was lethargic when she came to ER, she responded to one dose of Narcan, by the time arrived to ER alert oriented and provides all details of the history. ABG unremarkable for any CO2 retention. Patient endorses some urinary burning and frequency since last 5 days and she was taking ciprofloxacin at home which was there since her previous prescription. There is no CVA tenderness or suprapubic tenderness on examination. She has leukocytosis with left shift. She is also found to have significant hypokalemia which is not new to her, metabolic alkalosis and UA positive for trace leukocyte esterase, U tox positive for opiates, marijuana. No significant lactic acidosis. Problem list 1. Toxic encephalopathy secondary to polypharmacy/opiate overdose responded to Narcan 2. Cystitis with sepsis 3. Hypokalemia 4 . Metabolic alkalosis 1. Altered mental status Patient was found altered, difficulty to arouse after taking oxycodone, given by her . Patient reports that she took 2 pills of 5 mg of oxycodone and morphine sulfate. Patient was arousable after giving 0.2 mg of Narcan. Off note she was found to have pinpoint pupils. She was hemodynamically stable with normal blood pressure, MAXIMUM TEMPERATURE 103.8. Head CT was negative. CT chest no pneumonia was found. CAT scan abdomen no acute abnormality. * Altered mental status most possibly from polypharmacy, opiate use. Patient is on oxycodone, OxyContin,, Lyrica. U tox positive for opiates, cannabis * Admited to telemetry for hypokalemia * Fall precaution * Pain management with Tylenol. * Restarted her pain medications after confirming from pharmacy. 2. Sepsis secondary to UTI Patient was found to have MAXIMUM TEMPERATURE 103.8 with leukocytosis 17.4. She reports frequency, urgency, dysuria for last 1 week. She was taking ciprofloxacin from her 's prescription. However given her urine symptoms , urine analysis findings showed leukocyte esterase, WBC, bacteria will treat her for UTI. Chest x-ray was done which ruled out pneumonia, CT abdomen was done, no acute infection was found * Received 3 L of normal saline in the emergency room * We will continue IV Unasyn for UTI pending culture sensitivities. * Urine cultures grew Gram negative rods -- likely will transition to ceftriaxone tomoorrw. 3. Hypokalemia Patient has prior history of hypokalemia. She had a h/o adrenal adenoma and on spironolactone 50mg daily since long time. CAT scan showed stable left greater than right adrenal gland enlargement, on the left side again measuring up to 2.6 x 2 cm with Hounsfield units greater than that for a lipid rich adenoma. Patient is on Aldactone 50 mg daily. 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 * Continue Aldactone 50 mg dialy. 4. Hypomagnesemia Magnesium 1.7 started on slow mag 64mg BID Follow-up mg a.m. 5. Elevated bilirubin Resolved. Probably secondary to sepsis 6. Anxiety-takes Xanax 0.25 mg when necessary every night. His hold Xanax for now given altered mental status. 7. 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 This needs confirmation. Please ask to get medication from home. Regular diet DVT prophylaxis with subcutaneous Lovenox Full code Problem List: 1. Altered mental status 2. Hypomagnesemia 3. Hypokalemia 4. UTI (urinary tract infection) 5. Leukocytosis Pain Ratin Pain Location: n/a Pain Goal: Pain 4 or less Pain Plan: tylenol prn Tomorrow's Labs & Rationales: bep to monitor electrolytes Mag Travis WEBSTER,Gabrielle 06/28/17 1214: Attending MD Review Statement Attending Statement Attending MD Statement: examined this patient, discuss w/resident/PA/THIRD HAND, agreed w/resident/PA/THIRD HAND, reviewed EMR data (avail), discussed with nursing, discussed with case mgmt, amended to note Attending Assessment/Plan: Patient seen and examined. Resting comfortably not in any acute distress. She is alert and oriented 3. She is conversant appropriately. She has no events on telemetry monitoring overnight. Potassium level did improve yesterday but still low today at 2.9. Denies nausea vomiting. Denies diarrhea. She is afebrile and hemodynamically stable. Her white cell count is trending downwards. Recommendations: -Continue potassium supplementation orally today. -Continue antibiotic therapy with IV Unasyn. Follow-up urine culture results. -If she remains afebrile and potassium level improves tomorrow she may be discharged home. -Mobilize patient.
[2017-06-28 08:28] LABS: ABSOLUTE BASOPHIL COUNT 0.1 /CUMM (0.0-0.2); ABSOLUTE EOSINOPHIL COUNT 0.1 /CUMM (0.0-0.7); ABSOLUTE GRANULOCYTE CT 7.9 /CUMM (1.4-6.5); ABSOLUTE LYMPH COUNT 2.7 /CUMM (1.2-3.4); ABSOLUTE MONOCYTE COUNT 0.9 /CUMM (0.10-0.60); BASOPHIL % 0.5 % (0.0-2.0); EOSINOPHIL % 1.3 % (0-5); GRANULOCYTE % 67.9 % (42.2-75.2); HEMATOCRIT 39.2 % (37-47); MEAN CORPUSCULAR HGB 29.4 PG (27.0-31.0); MEAN CORPUSCULAR HGB CONC 33.8 G/DL (33.0-37.0); MEAN CORPUSCULAR VOLUME 86.8 FL (81.0-99.0); MEAN PLATELET VOLUME 7.8 FL (7.4-10.4); PLATELET COUNT 250 /CUMM (130-400); RBC DISTRIBUTION WIDTH 16.3 % (11.5-14.5); RED BLOOD CELL CT 4.51 /CUMM (4.20-5.40); WHITE BLOOD CELL COUNT 11.7 /CUMM (4.8-10.8)
[2017-06-28 14:36] VITALS: BP 132/78
--- NOTE | 2017-06-28 17:45 | Discharge Summary ---
Visit Information Visit Dates Admission Date: 06/26/17 Discharge Date: 06/29/17 Hospital Course Course Attending Physician: Gabrielle Robles MD Primary Care Physician: Juan Carlos WEBSTER,[facility] Course: Patient is a 72 YO F with PMH of HTN, DM currently not on medications after the weight loss, thyroid nodule, history of anemia, history of chronic hypokalemia, [place] syndrome diagnosed after adrenal incidentaloma evaluation, osteoporosis, osteoarthritis, CLL under remission since last 1 year currently not on any treatment, CAD S/P nonconclusive cath (EF 40%), no stents, CVA. 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 She presented in ER through EMS as she was found lethargic and difficult to arouse after taking her medications. She had one episode of vomiting at home according to the family. Patient was lethargic when she came to ER, she responded to one dose of Narcan, by the time arrived to ER alert oriented and provides all details of the history. ABG unremarkable for any CO2 retention. Patient endorses some urinary burning and frequency since last 5 days and she was taking ciprofloxacin at home which was there since her previous prescription. There is no CVA tenderness or suprapubic tenderness on examination. She has leukocytosis with left shift. She is also found to have significant hypokalemia which is not new to her, metabolic alkalosis and UA positive for trace leukocyte esterase, U tox positive for opiates, marijuana. No significant lactic acidosis. Problem list 1. Toxic encephalopathy secondary to polypharmacy/opiate overdose responded to Narcan 2. Cystitis with sepsis 3. Hypokalemia 4 . Metabolic alkalosis 1. Altered mental status Patient was found altered, difficulty to arouse after taking oxycodone, given by her . Patient reports that she took 2 pills of 5 mg of oxycodone and morphine sulfate. Patient was arousable after giving 0.2 mg of Narcan. Off note she was found to have pinpoint pupils. She was hemodynamically stable with normal blood pressure, MAXIMUM TEMPERATURE 103.8. Head CT was negative. CT chest no pneumonia was found. CAT scan abdomen no acute abnormality. * Altered mental status most possibly from polypharmacy, opiate use. Patient is on oxycodone, OxyContin,, Lyrica. U tox positive for opiates, cannabis * Admited to telemetry for hypokalemia * Fall precaution * Pain management with Tylenol. * Restarted her pain medications after confirming from pharmacy. 2. Sepsis secondary to UTI Patient was found to have MAXIMUM TEMPERATURE 103.8 with leukocytosis 17.4. She reports frequency, urgency, dysuria for last 1 week. She was taking ciprofloxacin from her 's prescription. However given her urine symptoms , urine analysis findings showed leukocyte esterase, WBC, bacteria will treat her for UTI. Chest x-ray was done which ruled out pneumonia, CT abdomen was done, no acute infection was found * Received 3 L of normal saline in the emergency room * We will continue IV Unasyn for UTI pending culture sensitivities. * Urine cultures grew Gram negative rods -- likely will transition to ceftriaxone tomoorrw. 3. Hypokalemia Patient has prior history of hypokalemia. She had a h/o adrenal adenoma and on spironolactone 50mg daily since long time. CAT scan showed stable left greater than right adrenal gland enlargement, on the left side again measuring up to 2.6 x 2 cm with Hounsfield units greater than that for a lipid rich adenoma. Patient is on Aldactone 50 mg daily. 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 * Continue Aldactone 50 mg dialy. 4. Hypomagnesemia Magnesium 1.7 started on slow mag 64mg BID Follow-up mg a.m. 5. Elevated bilirubin Resolved. Probably secondary to sepsis 6. Anxiety-takes Xanax 0.25 mg when necessary every night. His hold Xanax for now given altered mental status. 7. HLP- Continue baby aspirin and Lipitor 40 mg daily for hyperlipidemia Chronic pain/osteoarthritis * Continue celecoxib 200 mg daily * Continue home regimen Oxycodone/Oxycontine Depression Continue Cymbalta 60 mg daily GERD Continue Pepcid 20 mg twice daily Hypertension Continue lisinopril, valsartan, amlodipine 5mg daily (ACEI & ARB??) [place] syndrome Continue mifepristone 300 mg daily. This needs confirmation. Regular diet DVT prophylaxis with subcutaneous Lovenox Full code Complications: NONE Allergies: Coded Allergies: methotrexate (PT CAN'T REMEMBER REACTION 07/19/16) erythromycin base (PT STATES SHE GETS SHAKY 07/19/16) Disposition Summary Disposition Principal Diagnosis: Toxic encephalopathy secondary to polypharmacy/opiate overdose responded to Narcan Additional Diagnosis: Cystitis with sepsis Hypokalemia Metabolic alkalosis Discharge Disposition: home or self care Discharge Instructions General Discharge Information Code Status: Full Code Patient's Diet: regular diet Patient's Activity: as tolerated Follow-Up Instructions/Appts: Please follow up with your PCP in a week Medications at Discharge Discharge Medications: Continue taking these medications: Furosemide (Furosemide) 20 MG TABLET 1 Tablet ORAL DAILY Comments: Last Taken:NOT GIVEN THIS ADMISSION Time: Celecoxib (Celebrex) 200 MG CAPSULE 1 Capsule ORAL DAILY Comments: Last Taken:06/29/17 Time:9:48A.M Spironolactone (Aldactone) 50 MG TABLET 1 Tablet ORAL DAILY Comments: Last Taken:06/29/17 Time:9:48A.M Valsartan (Diovan) 160 MG TABLET 1 Tablet ORAL DAILY Comments: Last Taken:06/29/17 Time:9:48A.M GIVEN COZAAR SUBSTITUTE Lisinopril (Lisinopril) 40 MG TABLET 1 Tablet ORAL DAILY Comments: Last Taken:06/29/17 Time:9:48A.M Pregabalin (Lyrica) 50 MG CAPSULE 1 Capsule ORAL DAILY Comments: NOT GIVEN THIS ADMISSION Alprazolam (Xanax) 0.25 MG TABLET 1 Tablet ORAL Every night as needed for ANXIETY Comments: NOT GIVEN THIS ADMISSION Duloxetine HCl (Cymbalta) 60 MG CAPSULE.DR 1 Capsule ORAL DAILY Comments: Last Taken:06/29/17 Time:9:48A.M Aspirin (Aspirin*) 81 MG TAB.CHEW 1 Tablet ORAL DAILY Comments: Last Taken:06/29/17 Time:9:48A.M Mifepristone (Korlym) 300 MG TABLET 1 Tablet ORAL DAILY Qty = 30 Comments: Last Taken:06/29/17 Time:9A.M Magnesium Oxide (Magox 400) 400 MG TABLET 1 Tablet ORAL TWICE DAILY Qty = 30 Comments: Last Taken:06/29/17 Time:9:48A.M Famotidine (Pepcid) 20 MG TABLET 1 Tablet ORAL TWICE DAILY as needed for ACID REFLUX Qty = 60 Comments: Last Taken:06/29/17 Time:9A.M Atorvastatin Calcium (Atorvastatin Calcium) 40 MG TABLET 40 Milligram ORAL DAILY Qty = 30 Comments: Last Taken:06/28/17 Time: 4P.M Amlodipine Besylate (Norvasc) 5 MG TABLET 1 Tablet ORAL DAILY Comments: Last Taken:06/29/17 Time:9:48A.AM Start taking the following new medications: Amoxicillin/Potassium Clav (Augmentin 875-125 Tablet) 875 MG-125 MG TABLET 1 Tablet ORAL TWICE DAILY Qty = 14 No Refills Instructions: . Comments: NOT STARTED IN HOSPITAL Potassium Chloride (Klor-Con M20) 20 MEQ TAB.ER.PRT 40 Millequivalent ORAL DAILY Qty = 14 No Refills Attending MD Review Statement Documenting Attending: Gabrielle Robles MD Other Findings: Discharged in stable condition.
[2017-06-28 23:10] VITALS: BP 122/62; BP 142/80
[2017-06-29 06:39] VITALS: BP 132/80
--- NOTE | 2017-06-29 08:37 | PN- Housestaff ---
Wendy Villa 06/29/17 0836: Subjective Follow-up For: Refractory hypokalemia Morphine sensitivity Subjective: NO overnight event. Patient was on her way to restroom. Denied any chest pain/ dizziness/urinary symptoms/fever overnight. No other specific complaint. Review of Systems Constitutional: Reports: see HPI. Objective Last 24 Hrs of Vital Signs/I&O Vital Signs Date Time Temp Pulse Resp B/P B/P Pulse O2 O2 Flow FiO2 Mean Ox Delivery Rate 06/29 0639 98.7 63 18 132/80 93 06/28 2310 98.1 63 16 142/80 94 Room Air 06/28 1436 98.3 78 20 132/78 91 Room Air Intake & Output 06/29 1600 06/29 0800 06/29 0000 Intake Total Output Total Balance Patient 72.802 kg Weight Physical Exam General Appearance: Alert, Oriented X3, Cooperative, No Acute Distress Cardiovascular: Regular Rate Lungs: Clear to Auscultation, Normal Air Movement Abdomen: Normal Bowel Sounds, Soft, No Tenderness Neurological: Normal Gait, Normal Speech Extremities: No Edema Assessment/Plan Assessment: Patient is a 72 YO F with PMH of HTN, DM currently not on medications after the weight loss, thyroid nodule, history of anemia, history of chronic hypokalemia, [place] syndrome diagnosed after adrenal incidentaloma evaluation, osteoporosis, osteoarthritis, CLL under remission since last 1 year currently not on any treatment, CAD S/P nonconclusive cath (EF 40%), no stents, CVA. 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 She presented in ER through EMS as she was found lethargic and difficult to arouse after taking her medications. She had one episode of vomiting at home according to the family. Patient was lethargic when she came to ER, she responded to one dose of Narcan, by the time arrived to ER alert oriented and provides all details of the history. ABG unremarkable for any CO2 retention. Patient endorses some urinary burning and frequency since last 5 days and she was taking ciprofloxacin at home which was there since her previous prescription. There is no CVA tenderness or suprapubic tenderness on examination. She has leukocytosis with left shift. She is also found to have significant hypokalemia which is not new to her, metabolic alkalosis and UA positive for trace leukocyte esterase, U tox positive for opiates, marijuana. No significant lactic acidosis. Problem list 1. Toxic encephalopathy secondary to polypharmacy/opiate overdose responded to Narcan 2. Cystitis with sepsis 3. Hypokalemia 4 . Metabolic alkalosis 1. Altered mental status Patient was found altered, difficulty to arouse after taking oxycodone, given by her . Patient reports that she took 2 pills of 5 mg of oxycodone and morphine sulfate. Patient was arousable after giving 0.2 mg of Narcan. Off note she was found to have pinpoint pupils. She was hemodynamically stable with normal blood pressure, MAXIMUM TEMPERATURE 103.8. Head CT was negative. CT chest no pneumonia was found. CAT scan abdomen no acute abnormality. * Altered mental status most possibly from polypharmacy, opiate use. Patient is on oxycodone, OxyContin,, Lyrica. U tox positive for opiates, cannabis -Currently AO x 3. * Hypokalemia resolved to 3.7 on latest lab. * Fall precaution * Pain management with Tylenol. * Restarted her pain medications after confirming from pharmacy. 2. Sepsis secondary to UTI Patient was found to have MAXIMUM TEMPERATURE 103.8 with leukocytosis 17.4. She reports frequency, urgency, dysuria for last 1 week. She was taking ciprofloxacin from her 's prescription. However given her urine symptoms , urine analysis findings showed leukocyte esterase, WBC, bacteria will treat her for UTI. Chest x-ray was done which ruled out pneumonia, CT abdomen was done, no acute infection was found * Received 3 L of normal saline in the emergency room * IV unasyn on day 3 already, and will discharge on Augmentin x 7 days based on urine CX sensitivity. * Urine cultures grew E.COli. 3. Hypokalemia Patient has prior history of hypokalemia. She had a h/o adrenal adenoma and on spironolactone 50mg daily since long time. CAT scan showed stable left greater than right adrenal gland enlargement, on the left side again measuring up to 2.6 x 2 cm with Hounsfield units greater than that for a lipid rich adenoma. Patient is on Aldactone 50 mg daily. 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 * Continue Aldactone 50 mg dialy. 4. Hypomagnesemia Magnesium 1.7 started on slow mag 64mg BID 5. Elevated bilirubin Resolved. Probably secondary to sepsis 6. Anxiety-takes Xanax 0.25 mg when necessary every night. His hold Xanax for now given altered mental status. 7. 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 This needs confirmation. Please ask to get medication from home. Regular diet DVT prophylaxis with subcutaneous Lovenox Full code Problem List: 1. UTI (urinary tract infection) Pain Ratin Pain Location: NA Pain Goal: Remain pain free Pain Plan: see AP Tomorrow's Labs & Rationales: NIKOLAY Robles MD,Gabrielle 06/29/17 1107: Attending MD Review Statement Attending Statement Attending MD Statement: examined this patient, discuss w/resident/PA/ELECTRICAL ASSEMBLY SUPERVISOR, agreed w/resident/PA/ELECTRICAL ASSEMBLY SUPERVISOR, reviewed EMR data (avail), discussed with nursing, discussed with case mgmt, amended to note Attending Assessment/Plan: Patient seen and examined. Resting comfortably not in any acute distress. No issues overnight. No new complaints this morning. No events on telemetry monitoring. Her hypokalemia has been corrected. She is alert and oriented 3 and ambulating unassisted. She is medically stable to be discharged home today. We have advised her to abstain from using her husbands narcotic medications or any other prescriptions that do not belong to her. Her hypokalemia is chronic. She reports been on potassium supplements in the past but has not needed them recently. We have advised her to follow-up with her primary care provider next week for monitoring of her electrolyte levels. We will provide her with prescriptions for potassium chloride for 2 weeks using his daily for the next 3 days. She will be discharged on Augmentin to complete the course for her urinary tract infection per
[2017-06-29] MEDS ORDERED: AUGMENTIN 875-1 EACH PO ×2 (09:27→10:00)
--- NOTE | 2017-06-29 09:28 | Patient Discharge Instructions ---
Discharge Instructions General Discharge Information Special Instructions: - Please follow up with your primary care physician within 1-2 weeks of discharge. Inform your primary care physician of this admission to [facility]. - Continue your current medications per discharge instructions. - Please watch for these problems: Fever, Chills, Nausea, Vomiting, Shortness of Breath, Productive Cough, Chest Pain/Discomfort, Abdominal Pain, Active Bleeding or Bloody urine/stool. Diet Continue normal diet: Yes Activity Full Activity/No Limits: Yes Acute Coronary Syndrome Inclusion Criteria At DC or during hospital stay patient has or had the following: ACS DIAGNOSIS No Discharge Core Measures Meds if any: Prescribed or Continued at Discharge Meds if any: NOT Prescribed or Continued at Discharge Congestive Heart Failure Inclusion Criteria At DC or during hospital stay patient has or had the following: CHF DIAGNOSIS No Discharge Core Measures Meds if any: Prescribed or Continued at Discharge Meds if any: NOT Prescribed or Continued at Discharge Cerebrovascular accident Inclusion Criteria At DC or during hospital stay patient has or had the following: CVA/TIA Diagnosis No Discharge Core Measures Meds if any: Prescribed or Continued at Discharge Meds if any: NOT Prescribed or Continued at Discharge Venous thromboembolism Inclusion Criteria VTE Diagnosis No VTE Type NONE VTE Confirmed by (Test) NONE Discharge Core Measures - Per Current guidelines, there needs to be overlap - treatment for the first 5 days of Warfarin therapy. - If discharged on Warfarin prior to 5 days of - overlap therapy, the patient will need to be - assessed for post discharge needs including - *Post discharge parental anticoagulation - *Warfarin and/or parental anticoagulation education - *Follow up date to check INR post discharge At least 5 days overlap therapy as Inpatient No Meds if any: Prescribed or Continued at Discharge Note: Overlap Therapy is Warfarin and Anticoagulant Meds if any: NOT Prescribed or Continued at Discharge
[2017-06-29 09:48] VITALS: BP 132/80
[2017-06-29] MEDS ORDERED: OXYCONTIN15 M1 PO ×2 (11:26→11:29)
[2017-06-29] MEDS ORDERED: OXYCODONE HCL5 M1 PO ×2 (11:26→11:29)
[2017-06-29] MEDS ORDERED: KLOR-CON M2020 ME1 PO (11:26)
== END 2017-06-29 12:25 | disposition home health service (06) | DRG 871 ==
LOC: ERH 18:10 → ERHI 23:58 → 1NO 23:58 → ENRESERV 06-27 00:25 → 1NO 06-27 02:10 → ENPENDDIS 06-29 09:57 → ENTRNSPT 06-29 11:53 → EDTRNSPTSTS 06-29 12:19 → 1NO 06-29 12:25 → CMPTRNSPT 06-29 12:33
PROVIDERS: Hospitalist; Internal Medicine; Physician Assistant
DX: A41.9 Sepsis, unspecified organism (principal); G92 Toxic encephalopathy; E87.3 Alkalosis; E11.8 Type 2 diabetes mellitus with unspecified complications; E24.9 Cushing's syndrome, unspecified; N39.0 Urinary tract infection, site not specified; C91.11 Chronic lymphocytic leukemia of B-cell type in remission; T40.2X1A Poisoning by other opioids, accidental (unintentional), initial encounter; E87.6 Hypokalemia; E83.42 Hypomagnesemia; R41.82 Altered mental status, unspecified; I10 Essential (primary) hypertension; F17.210 Nicotine dependence, cigarettes, uncomplicated; F12.90 Cannabis use, unspecified, uncomplicated
CPT/HCPCS: 1NP; ERO; 36415; 36592; 71046; 74176; 80307; 81001; 82436; 87040; 87086; 87804; 87804-59; 93005; 93010; 97116-GO; 97161-GP; 97530-GO; J0131; J1650; J2310; J3490